=== PATIENT | male | born 1945 | race Caucasian/White ===

== ENCOUNTER → 2016-10-17 | Outpatient (CLI) | payer OTHER ==
[~2016-10-17] VITALS: Ht 167.6 cm; Wt 80.3 kg
[~2016-10-17] MED LIST: ADIPEX-P37.5 M1 PO; ADIPEX-P37.5 MG PO; IBUPROFEN 200200 M1 PO; LISINOPRIL20 MG PO; LYRICA100 MG PO; METFORMIN HCL500 MG PO; MOBIC7.5 MG PO; NORCO 5-325 TA1 EAC1 PO; NORCO 5-325 TA1 EACH PO; TRAMADOL 50 MG50 MG PO
--- NOTE | ~2016-10-17 | HPC ---
[facility] [place] [address] PAIN MANAGEMENT CONSULTATION Name: DEE JOE Room #: REG GERALD Hutchison#: [id number] Admission: 10/17/16 Attend Phys: Dru Gonzalez DO Discharge: Date of : 47 Report #: [id number] THIS REPORT FOR: //name// CC: THERON Gonzalez The patient is a pleasant 71-year-old gentleman being treated for symptomatic lumbar radiculopathy status post decompressive laminectomy, chronic pain syndrome, exogenous obesity requiring complex medication management. I have been providing the patient with a prescription for 37.5 mg of phentermine in the past several months. His weight has continued to come down. BMI has been 29.7 in May down to 29 kilograms per meter squared in July. He continues to lose weight on a steady basis. He is down to 28.6 kilograms per meter squared BMI. He is not having problems with mental acuity changes, daytime somnolence nor constipation. He has taken the phentermine for weight loss along with some hydrocodone for chronic pain, 5/325 up to 4 a day. I had ordered an EKG which was obtained in March when we talked about starting the phentermine, showed normal sinus rhythm. 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 No coiling or stents were deployed. He is not on any blood thinners. [employer] was aware that he was taking phentermine and stated that was acceptable. He returns to the pain clinic today. PHYSICAL EXAMINATION: Shows 71-year-old gentleman, BMI is 28.6 kilograms per meter squared. Blood pressure 136/71, pulse 80, respirations are 14. Alert and oriented to person, place, and time, judged to be a reasonable historian. Subjective pain score is 7 to 8 on a 0-10 visual analog scale. Pain across the low back, bilateral legs. He had fallen on the ice earlier in the month with some exacerbation of some axial back pain, more radicular component of pain at present. Rises from chair easily. Gait is tandem. His pannus is receding somewhat. He does appear a little "bettie." ASSESSMENT: 1. Symptomatic lumbar radiculopathy status post decompressive laminectomy, chronic pain syndrome, exogenous obesity requiring complex medication management. RECOMMENDATIONS: 1. Continue phentermine 37.5, taken the liberty of writing for 2 prescriptions, one for 30 tablets with a second prescription to release in 4 weeks. 2. Renew hydrocodone 5/325, he takes up to 4 a day, taken the liberty of writing for 120 tablets, given the same prescription to release in [address] [address] PAIN MANAGEMENT CONSULTATION Name: DEE JOE Room #: REG CL Foster#: [id number] Admission: 10/17/16 Attend Phys: Dru Gonzalez DO Discharge: Date of : 47 Report #: [id number] ASSESSMENT: 1. Acute exacerbation of lumbar radicular symptoms. Again, status post decompressive laminectomy and fusion at T12 through L2. 2. Modest obesity, currently working on diet restriction with phenteramine. PROCEDURE: Lumbar epidural steroid injection under fluoroscopy. PROCEDURE NOTE: After both written and informed consent to include risk of spinal cord damage, increased pain, weakness and dural puncture, the patient was taken to the fluoroscopy suite, placed in the prone position. After sterile prep and drape, a skin wheal with lidocaine was raised. A 22-gauge epidural Tuohy needle was inserted in the midline at L2-L3 with good loss to resistance. Negative aspiration for cerebrospinal fluid or blood was noted. Then 1 mL of Omnipaque under biplanar fluoroscopy showed good spread within the epidural space. This was followed with 80 mg of triamcinolone plus 1 mL of 1.5% preservative-free Xylocaine, 0.5 mL Xylocaine was then injected to flush the needle; it was removed. The patient was monitored for an appropriate period of time and discharged in good and stable condition. <ELECTRONICALLY SIGNED> By: Dru Gonzalez DO 10/18/16 0904 1617 2316 Dru Gonzalez DO /nt
[2016-10-17 12:30] VITALS: BP 136/71
== END | disposition home or self-care (01) ==
LOC: PAIN 10-10 08:50
DX: M54.16 Radiculopathy, lumbar region (principal); G89.4 Chronic pain syndrome; E66.09 Other obesity due to excess calories; Z68.28 Body mass index [BMI] 28.0-28.9, adult; Z98.890 Other specified postprocedural states

== ENCOUNTER → 2016-12-20 | Outpatient (CLI) | payer OTHER ==
[~2016-12-20] VITALS: Ht 167.6 cm; Wt 80.6 kg
--- NOTE | ~2016-12-20 | HPC ---
[facility] [address] [address] [address] PAIN MANAGEMENT CONSULTATION Name: DEE JOE Room #: REG GERALD Hutchison#: [id number] Admission: 12/20/16 Attend Phys: Dru Gonzalez DO Discharge: Date of : 47 Report #: [id number] THIS REPORT FOR: //name// CC: [facility] physician/PCP Dru Gonzalez The patient is a pleasant 71-year-old gentleman, well known to the pain clinic, typically treated for lumbar radiculopathy, secondary to spinal stenosis, component of morbid obesity, requiring complex medication management. He has been stable on hydrocodone 5/325, fairly low dose one tablet 4 times a day. Periodic epidural injections have continued to afford transient relief. In 2015, he had had an injection in September, February, April, and July. He had one injection this year in September. He notes that the last injection afforded 80% relief for about 1-1/2 months, gradually returned. He has continued on phentermine 37.5 mg, though weight is relatively unchanged. BMI remains 28.7 kilograms per meter squared. He is struggling with activity during the cold weather. He has been diagnosed with increasing PSA numbers. [facility]. He has a bone scan scheduled in the near future. PHYSICAL EXAMINATION: Shows a 71-year-old gentleman, BMI is 28.7 kilograms per meter squared. Blood pressure is little bit elevated at 150/69, pulse of 80, respirations are 16. Alert and oriented to person, place, and time. Judged to be a reasonable historian. Slightly endomorphic build. Rises from the chair using armrest. Diffuse tenderness across the low back, mildly antalgic gait, positive straight leg raise bilaterally. Slight decreased left greater than right hip flexion strength. ASSESSMENT #1: Symptomatic morbid obesity and chronic pain syndrome, requiring complex medication management. RECOMMENDATION: 1. Continue phentermine 37.5 mg once a day. We talked again about dietary restrictions and increased physical activity. 2. Continue hydrocodone 5/325 up to 4 a day as needed for pain. We reviewed the fact that opiate medications are being used to provide analgesia adequate to support activities of daily living, not attempting to achieve a specific pain score on the 0-10 Visual Analog Scale. The current opiate medications are providing sufficient analgesia to allow the patient to participate in activities of daily living. The patient is not exhibiting any aberrant behavior suggestive of drug diversion. The patient is not having any adverse reactions to medications. The patient is not suffering from daytime somnolence or mental acuity changes. The patient is managing opiate-induced constipation with appropriate jrtb-hnw-clkqhju agents and dietary considerations. The patient was counseled on concern for caution with operating a motor vehicle while using opiate medications. [address] [address] PAIN MANAGEMENT CONSULTATION Name: DEE JOE Room #: REG CLI Foster#: [id number] Admission: 12/20/16 Attend Phys: Dru Gonzalez DO Discharge: Date of : 47 Report #: [id number] A physical exam was performed and the patient's functional status was evaluated. All patients with back pain were advised against the bed rest greater than 4 days and were advised to return to normal activities. Pain score assessment was noted and the treatment plan was reviewed with the patient. All current medications, both prescribed and OTC were reviewed and reconciled on the electronic medical record. Tobacco screening was accomplished and smoking cessation was advised when indicated. BMI was noted and diet/exercise modification was recommended for all patients following outside normal parameters. I reviewed with the patient today their responsibilities to safeguard prescription medications, reviewed their responsibility to utilize medications only as prescribed by the physician. They are to seek and receive pain medications only from 1 physician group ( [facility]). They are to use 1 pharmacy and keep the clinic informed if they change pharmacies. Their responsibilities include making followup visits in a timely fashion and to avoid abrupt discontinuation of medication usage. Their responsibilities further include bringing their medications (bottles from the pharmacy with residual pills) to the visit for possible confirmation of pill counts and the patient understands it is their responsibility to submit to random drug screens to ensure both that the medications prescribed are present, and that no other controlled substances are present. All prescriptions provided today were generated electronically. ASSESSMENT #2: Acute exacerbation of lumbar radiculopathy, status post decompressive laminectomy. RECOMMENDATION: Repeat epidural injection under fluoroscopy today at L3-L4. PROCEDURE NOTE: Lumbar epidural injection under fluoroscopy. DESCRIPTION OF PROCEDURE: After both written and informed consent to include risk of spinal cord damage, increased pain, weakness and dural puncture, the patient was taken to the fluoroscopy suite, placed in the prone position. After sterile prep and drape, a skin wheal with lidocaine was raised. A 22-gauge epidural Tuohy needle was inserted in the midline at L3-L4 with good loss to resistance. Negative aspiration for cerebrospinal fluid or blood was noted. Then 1 mL of Omnipaque under biplanar fluoroscopy showed good spread within the epidural space. This was followed with 80 mg of triamcinolone plus 1 mL of 1.5% preservative-free Xylocaine, 0.5 mL Xylocaine was then injected to flush the [facility] [address] [place] [address] PAIN MANAGEMENT CONSULTATION Name: DEE JOE Room #: REG CLEnoc Oconnor.#: [id number] Admission: 12/20/16 Attend Phys: Dru Gonzalez DO Discharge: Date of : 47 Report #: [id number] needle; it was removed. The patient was monitored for an appropriate period of time and discharged in good and stable condition. <ELECTRONICALLY SIGNED> By: Dru Gonzalez DO 12/23/16 1130 1040 1302 Dru Gonzalez DO /nt
[2016-12-20 13:39] VITALS: BP 150/69
== END | disposition home or self-care (01) ==
LOC: PAIN 07:10
DX: M54.16 Radiculopathy, lumbar region (principal); I10 Essential (primary) hypertension; E66.01 Morbid (severe) obesity due to excess calories; Z68.28 Body mass index [BMI] 28.0-28.9, adult

== ENCOUNTER → 2017-03-20 | Outpatient (CLI) | payer OTHER ==
[~2017-03-20] VITALS: Ht 167.6 cm; Wt 78.3 kg
--- NOTE | ~2017-03-20 | HPC ---
[facility] [address] [place] [address] PAIN MANAGEMENT CONSULTATION Name: DEE JOE Room #: REG GERALD Hutchison#: [id number] Admission: 03/20/17 Attend Phys: Dru Gonzalez DO Discharge: Date of : 47 Report #: [id number] THIS REPORT FOR: //name// CC: [place] physician/PCP Dru Gonzalez DATE OF SERVICE: 03/20/2017 The patient is a very pleasant 71-year-old gentleman being treated for lumbar radiculopathy status post decompressive laminectomy, exogenous obesity, being managed with phentermine and complex medication management for chronic axial back pain, stable with hydrocodone 5/325 up to 4 a day. Returns to pain clinic today. He has continued to lose weight. He BMI of 27.9 kilograms per meter squared. He has been diagnosed with prostate cancer in July. He has been trying to get surgery ultimately since he has had multiple abdominal surgeries. Surgeons were afraid of abdominal surgeries with his adhesions. They elected to treat his cancer with radiation therapy. He has had radium implants and he is going to start 3 weeks of external beam radiation. Notes ongoing radicular pain is problematic. Last epidural injection gave him 90% relief for about 4-6 weeks. Pain is gradually beginning to recur. PHYSICAL EXAMINATION: Shows a pleasant 71-year-old gentleman. Again, BMI is 27.9 kilograms per meter squared. Vital signs stable as noted in the EMR. Rises from chair using armrest. Diffuse tenderness across the low back. Pain radiating to the anterior thighs compatible with L2 radicular pain pattern. He has a lumbar fusion T11 through L1. ASSESSMENT #1: Exogenous obesity, chronic pain syndrome requiring complex medication management, stable on baseline medications. RECOMMENDATIONS: 1. Continue phentermine 37.5 daily. Continue weight loss, dietary discretion and activity. 2. Continue hydrocodone 5/325 as needed for breakthrough pain up to 4 tablets a day, taken the liberty of writing for 3 months of current medications. ASSESSMENT #2: Acute exacerbation of lumbar radiculopathy status post fusion. RECOMMENDATION: Epidural injection under fluoroscopy today. PROCEDURE: Lumbar epidural injection under fluoroscopy. PROCEDURE NOTE: After both written and informed consent to include risk of [address] [address] [facility]IN MANAGEMENT [facility] Room #: REG GERALD Hutchison#: [id number] Admission: 03/20/17 Attend Phys: Dru Gonzalez DO Discharge: Date of : 47 Report #: [id number] spinal cord damage, increased pain, weakness and dural puncture, the patient was taken to the fluoroscopy suite, placed in the prone position. After sterile prep and drape, a skin wheal with lidocaine was raised. A 22-gauge epidural Tuohy needle was inserted in the midline at L2-L3 with good loss to resistance. Negative aspiration for cerebrospinal fluid or blood was noted. Then 1 mL of Omnipaque under biplanar fluoroscopy showed good spread within the epidural space. This was followed with 80 mg of triamcinolone plus 1 mL of 1.5% preservative-free Xylocaine, 0.5 mL Xylocaine was then injected to flush the needle; it was removed. The patient was monitored for an appropriate period of time and discharged in good and stable condition. By: [id number] Dru Gonzalez DO /nt
[2017-03-20 13:39] VITALS: BP 112/69
== END | disposition home or self-care (01) ==
LOC: PAIN 06:47
DX: M54.16 Radiculopathy, lumbar region (principal); E66.09 Other obesity due to excess calories; Z68.27 Body mass index [BMI] 27.0-27.9, adult; G89.4 Chronic pain syndrome

== ENCOUNTER → 2017-06-19 | Outpatient (CLI) | payer OTHER ==
[~2017-06-19] VITALS: Ht 167.6 cm; Wt 75.6 kg
--- NOTE | ~2017-06-19 | HPC ---
[facility] [address] [address] PAIN MANAGEMENT CONSULTATION Name: DEE JOE Room #: REG GERALD Hutchison#: [id number] Admission: 06/19/17 Attend Phys: Dru Gonzalez DO Discharge: Date of : 47 Report #: [id number] THIS REPORT FOR: //name// CC: [facility] physician/PCP Dru Gonzalez The patient is a 71-year-old gentleman, well known to the pain clinic, being treated for symptomatic lumbar radiculopathy, status post decompressive laminectomy, axial back pain, high-risk complex medication management and exogenous obesity. The patient has been using phentermine for some time. He has continued to drop weight, his BMI is down from 27.9 kg to 26.9 kg/m2. Returns to pain clinic today. He has finished radiation therapy for prostate cancer (last ____ radiation treatment was on 06/16/2017). He does complain of some dysuria and painful bowel movements after the radiation therapy, but was told by radiation oncologist that this will resolve in time. He notes 70% relief following his last epidural injection for 8-10 weeks. Notes pain has recurred, it is an 8-9 on a VAS. He continues low-dose hydrocodone 5/325 up to 4 a day for pain. PHYSICAL EXAMINATION: Otherwise unchanged. Again, BMI is down to 1 kg/m2 from 27.9 to 26.9. Vital signs stable on the EMR. Rises from chair using armrest. Diffuse tenderness across the low back. Lumbar flexion is limited. Positive straight leg raise bilaterally. ASSESSMENT: Anxiety, obesity and chronic pain syndrome requiring high-risk complex medication management, component of axial back pain. RECOMMENDATIONS: 1. Renew hydrocodone 5/325 up to 4 a day. I have taken the liberty of writing for 3 months of current medication. 2. Exogenous obesity, currently doing well with phentermine 37.5 mg a day. I have taken the liberty of renewing that prescription as well. We will continue with increased activity and dietary discretion. 3. Lumbar radiculopathy, status post decompressive laminectomy. Recommendation of epidural injection under fluoroscopy today. PROCEDURE: Lumbar epidural steroid injection. PROCEDURE NOTE: After both written and informed consent to include risk of spinal cord damage, increased pain, weakness and dural puncture, the patient was taken to the fluoroscopy suite, placed in the prone position. After sterile prep and drape, a skin wheal with lidocaine was raised. A 22-gauge epidural Tuohy needle was inserted in the midline at the level of L3-L4 with good loss to resistance. Negative aspiration for cerebrospinal fluid or blood was noted. [address] [address] PAIN MANAGEMENT CONSULTATION Name: CATYZebDEE Room #: REG CLEnoc Hutchison#: [id number] Admission: 06/19/17 Attend Phys: Dru Gonzalez DO Discharge: Date of : 47 Report #: [id number] Then 1 mL of Omnipaque under biplanar fluoroscopy showed good spread within the epidural space. This was followed with 80 mg of triamcinolone plus 1 mL of 1.5% preservative-free Xylocaine, 0.5 mL Xylocaine was then injected to flush the needle; it was removed. The patient was monitored for an appropriate period of time and discharged in good and stable condition. By: [id number] Dru Gonzalez DO /nt
[2017-06-19 12:34] VITALS: BP 129/61
== END | disposition home or self-care (01) ==
LOC: PAIN 07:07
DX: M54.16 Radiculopathy, lumbar region (principal); G89.4 Chronic pain syndrome; F41.8 Other specified anxiety disorders; E66.09 Other obesity due to excess calories; Z68.27 Body mass index [BMI] 27.0-27.9, adult; Z98.890 Other specified postprocedural states; Z79.891 Long term (current) use of opiate analgesic; Z79.899 Other long term (current) drug therapy

== ENCOUNTER → 2017-09-19 | Outpatient (CLI) | payer OTHER ==
[~2017-09-19] VITALS: Ht 167.6 cm; Wt 75.3 kg
[~2017-09-19] MED LIST changes: +CELEXA10 MG PO; +HYDROCODON-ACE1 EA12 PO; +NORCO 7.5-3251 EACH PO
--- NOTE | ~2017-09-19 | HPC ---
[facility] [address] [place] [address] PAIN MANAGEMENT CONSULTATION Name: DEE JOE Room #: REG CLEnoc Hutchison#: [id number] Admission: 09/19/17 Attend Phys: Dru Gonzalez DO Discharge: Date of : 47 Report #: [id number] THIS REPORT FOR: //name// CC: [place] physician/PCP Dru Gonzalez PAIN CLINIC NOTE SUBJECTIVE: The patient is a 72-year-old gentleman, long treated for symptomatic lumbar radiculopathy status post decompressive laminectomy. The patient had I believe acute traumatic compression fracture now with fusion T11-L1. He has been treated for symptomatic lumbar radiculopathy below the fusion with ongoing axial back pain. He has been stable on high risk complex medication management including hydrocodone 5/325 four a day alternating with tramadol 50 mg 4 times a day. With some exogenous obesity and an endomorphic build, I had assisted his dietary management with phentermine extended release 37.5 mg over the last few months. We have done midline epidural injection at L3-L4 with ongoing improvement of radicular symptoms. The patient returns to pain clinic today. Weight is somewhat plateaued, BMI is 26.8 kilograms per meter squared. We had a prolonged visit today from 7182-7261 hours. Greater than 50% of the 30-minute visit was spent reviewing the health issues and concerns. I had obtained a buccal swab at last visit, 06/19/2017. It was positive for tramadol and phentermine, but negative for hydrocodone. When I confronted the patient about this, he stated that he had been taking his hydrocodone a little more aggressively. He states he is having increasing pain in the right low back radiating to the hip. He states his legs are weak and describes neurogenic claudication. Notes pain in the low back exacerbated with rotation primarily to the right. PHYSICAL EXAMINATION: Today, shows 72-year-old gentleman as noted, BMI is 26.8 kilograms per meter squared. Vital signs are stable as noted in the EMR. Alert and oriented to person, place and time, judged to be a reasonable historian. He does use tobacco products (chew). I did caution the patient about nicotine use and axial back pain. He rises from the chair using armrests, again endomorphic build. Diffuse tenderness across the right low back pain exacerbated with rotating to the right, appears to be perhaps some facet mediated pain. Pain radiates into the low back. SI mediated pain is fairly nominal at this time. Lower extremity strength is modestly diminished on the right. Straight leg raise negative at this time. Again, he does describe neurogenic claudication. We reviewed the fact that opiate medications are being used to provide analgesia [address] [address] PAIN MANAGEMENT CONSULTATION Name: CATYZebDEE Room #: REG GERALD Hutchison#: [id number] Admission: 09/19/17 Attend Phys: Dru Gonzalez DO Discharge: Date of : 47 Report #: [id number] adequate to support activities of daily living, not attempting to achieve a specific pain score on the 0-10 Visual Analog Scale. The current opiate medications are providing sufficient analgesia to allow the patient to participate in activities of daily living. The patient is not exhibiting any aberrant behavior suggestive of drug diversion. The patient is not having any adverse reactions to medications. The patient is not suffering from daytime somnolence or mental acuity changes. The patient is managing opiate-induced constipation with appropriate jkhn-cbw-nkluqax agents and dietary considerations. The patient was counseled on concern for caution with operating a motor vehicle while using opiate medications. A physical exam was performed and the patient's functional status was evaluated. All patients with back pain were advised against the bed rest greater than 4 days and were advised to return to normal activities. Pain score assessment was noted and the treatment plan was reviewed with the patient. All current medications, both prescribed and OTC were reviewed and reconciled on the electronic medical record. Tobacco screening was accomplished and smoking cessation was advised when indicated. BMI was noted and diet/exercise modification was recommended for all patients following outside normal parameters. I reviewed with the patient today their responsibilities to safeguard prescription medications, reviewed their responsibility to utilize medications only as prescribed by the physician. They are to seek and receive pain medications only from 1 physician group ( [facility]). They are to use 1 pharmacy and keep the clinic informed if they change pharmacies. Their responsibilities include making followup visits in a timely fashion and to avoid abrupt discontinuation of medication usage. Their responsibilities further include bringing their medications (bottles from the pharmacy with residual pills) to the visit for possible confirmation of pill counts and the patient understands it is their responsibility to submit to random drug screens to ensure both that the medications prescribed are present, and that no other controlled substances are present. All prescriptions provided today were generated electronically. ASSESSMENT: 1. Symptomatic lumbar radiculopathy, status post compression fracture with fusion T11-L1 with a component of axial back pain and lumbar spondylosis (right mid lumbar). 2. Exogenous obesity. Weight loss has plateaued. 3. Nicotine use via tobacco "chew." RECOMMENDATIONS: 1. Discontinue hydrocodone 5/325 and tramadol. We will increase hydrocodone 7.5/325 max 4 a day. The patient cautioned about increasing somnolence and constipation with a 50% decrease in his overall opiate load. Follow up in 4 weeks to evaluate efficacy. 2. We will order an MRI of the lumbar spine with increasing pain and changing [facility] [address] [place] [address] PAIN MANAGEMENT CONSULTATION Name: DEE JOE Room #: REG CLI MMalgorzata.#: [id number] Admission: 09/19/17 Attend Phys: Dru Gonzalez DO Discharge: Date of : 47 Report #: [id number] symptoms in the right low back beneath the fusion. I am afraid he may be getting an exacerbation of facet degeneration here. We will postpone interventional therapy today, the patient was requesting epidural injection for ongoing neurogenic claudication symptoms. We may repeat epidural injection versus fluoroscopic-guided facet joint injection at next visit. We will follow up in 4 weeks to evaluate efficacy of medication change and to evaluate MRI. The patient is discharged in good and stable condition after a 30-minute visit. <ELECTRONICALLY SIGNED> By: Dru Gonzalez DO 10/02/17 0913 1621 0348 Dru Gonzalez DO /nt
[2017-09-19 13:05] VITALS: BP 141/72
== END ==
LOC: PAIN 07:47
DX: M54.16 Radiculopathy, lumbar region (principal); M54.89 Other dorsalgia; E66.09 Other obesity due to excess calories; F17.228 Nicotine dependence, chewing tobacco, with other nicotine-induced disorders; Z98.890 Other specified postprocedural states

== ENCOUNTER → 2017-10-24 | Outpatient (CLI) | payer OTHER ==
[~2017-10-24] VITALS: Ht 167.6 cm; Wt 73.9 kg
--- NOTE | ~2017-10-24 | HPC ---
[facility] [address] [address] PAIN MANAGEMENT CONSULTATION Name: DEE JOE Room #: REG CLEnoc Hutchison#: [id number] Admission: 10/24/17 Attend Phys: Dru Gonzalez DO Discharge: Date of : 47 Report #: [id number] THIS REPORT FOR: //name// CC: [place] physician/PCP Dru Gonzalez PAIN CLINIC NOTE The patient is a 72-year-old gentleman, last seen in the pain clinic on 09/19/2017, being treated for lumbar radiculopathy status post decompressive laminectomy, fusion T11 to L1, status post T12 traumatic compression fracture. Ongoing radicular symptoms, axial back pain, component of morbid obesity requiring high risk complex medication management. We have been trying to get an MRI of the lumbar spine. The patient describes neurogenic claudication, has had transient relief with epidural injections. Last diagnostic study somewhat dated from January 2014, now approaching 4 years old. Concern the patient may have treatable pathology in the lumbar spine. We have been having a difficult time getting the MRI authorized. The patient's prior injury was work related and he is dealing with workmen's compensation. His health care attorney at the [employer] has been working to try and get this MRI expedited. The patient returns to the pain clinic today, does note ongoing pain that he rates a "12" on a 0-10 VAS. Again, pain is low back, right hip and right leg. He has subjective weakness, ongoing pain exacerbated with standing, walking or lifting. PHYSICAL EXAMINATION: GENERAL: Shows a 72-year-old gentleman, BMI is 26.3 kilograms per meter squared. VITAL SIGNS: Stable. MUSCULOSKELETAL: Rises from chair using armrests, antalgic gait. Objective diminished right hip flexion, lower extremity extension and dorsiflexion, plantarflexion strength. Positive straight leg raise on the right. Diffuse tenderness across the low back. No discrete trigger points noted. We reviewed the fact that opiate medications are being used to provide analgesia adequate to support activities of daily living, not attempting to achieve a specific pain score on the 0-10 Visual Analog Scale. The current opiate medications are providing sufficient analgesia to allow the patient to participate in activities of daily living. The patient is not exhibiting any aberrant behavior suggestive of drug diversion. The patient is not having any adverse reactions to medications. The patient is not suffering from daytime somnolence or mental acuity changes. The patient is managing opiate-induced constipation with appropriate dfqb-vqd-lfrisbi agents and dietary considerations. The patient was counseled on concern for caution with operating [address] [address] PAIN MANAGEMENT CONSULTATION Name: DEE JOE Room #: REG CLEnoc Hutchison#: [id number] Admission: 10/24/17 Attend Phys: Dru Gonzalez DO Discharge: Date of : 47 Report #: [id number] a motor vehicle while using opiate medications. A physical exam was performed and the patient's functional status was evaluated. All patients with back pain were advised against the bed rest greater than 4 days and were advised to return to normal activities. Pain score assessment was noted and the treatment plan was reviewed with the patient. All current medications, both prescribed and OTC were reviewed and reconciled on the electronic medical record. Tobacco screening was accomplished and smoking cessation was advised when indicated. BMI was noted and diet/exercise modification was recommended for all patients following outside normal parameters. I reviewed with the patient today their responsibilities to safeguard prescription medications, reviewed their responsibility to utilize medications only as prescribed by the physician. They are to seek and receive pain medications only from 1 physician group ( [facility]). They are to use 1 pharmacy and keep the clinic informed if they change pharmacies. Their responsibilities include making followup visits in a timely fashion and to avoid abrupt discontinuation of medication usage. Their responsibilities further include bringing their medications (bottles from the pharmacy with residual pills) to the visit for possible confirmation of pill counts and the patient understands it is their responsibility to submit to random drug screens to ensure both that the medications prescribed are present, and that no other controlled substances are present. All prescriptions provided today were generated electronically. ASSESSMENT: Symptomatic lumbar radiculopathy status post prior fusion T11 to L1 secondary to T12 compression fracture, requiring high risk complex medication management. Comorbidity includes exogenous obesity, which we have been treating with phentermine dietary discretion. The patient continues to chew tobacco, was counseled regarding same. Continue hydrocodone 7.5/325 up to 4 a day. RECOMMENDATIONS: MRI of lumbar spine, again this is "in the works." We will plan on moving forward with epidural injection under fluoroscopy at next visit, we will correlate symptoms with MRI, which should be obtained shortly. Today, I have elected to renew current medication including hydrocodone 7.5/325 up to 4 a day, taken the liberty of writing for 3 months of current medication phentermine 37.5 mg 1 a day. Discharged in good and stable condition. Plan on seeing after MRI. <ELECTRONICALLY SIGNED> By: Dru Gonzalez DO 10/27/17 1026 [id number] 2203 Dru Gonzalez DO /nt
[2017-10-24 13:00] VITALS: BP 126/75
== END ==
LOC: PAIN 10-17 07:56
DX: M54.16 Radiculopathy, lumbar region (principal); M54.9 Dorsalgia, unspecified; E66.09 Other obesity due to excess calories; F17.228 Nicotine dependence, chewing tobacco, with other nicotine-induced disorders; Z98.890 Other specified postprocedural states; Z87.81 Personal history of (healed) traumatic fracture; Z79.899 Other long term (current) drug therapy

== ENCOUNTER → 2017-12-05 | Outpatient (CLI) | payer OTHER ==
[~2017-12-05] VITALS: Ht 167.6 cm; Wt 74.7 kg
--- NOTE | ~2017-12-05 | HPC ---
[facility] [place] [place] [address] PAIN MANAGEMENT CONSULTATION Name: DEE JOE Room #: REG BEEEnoc Oconnor.#: [id number] Admission: 12/05/17 Attend Phys: Dru Gonzalez DO Discharge: Date of : 47 Report #: [id number] THIS REPORT FOR: //name// CC: [place] physician/PCP Dru Gonzalez DATE OF SERVICE: 12/05/2017 The patient is a pleasant 72-year-old gentleman. He has been seen for symptomatic lumbar radiculopathy, status post fusion for T12 compression fracture, fusion is T11 through L1. He was having ongoing pain and I had ordered MRI of the lumbar spine. This ultimately was obtained today. I personally reviewed the images. Does show the aforementioned T11-L1 fusion. There is some generalized spondylosis and facet arthropathy at multiple levels. There is a Schmrol nodule at L3. On my view, there is a moderate right greater than left neural foraminal narrowing at L1-L2. Ligamentous thickening and facet changes at L2-L3. Hypertrophic facet changes at L3-L4. The patient is noting some increasing pain in the right low back at the inferior aspect of the fusion. I suspect there is a component of some lumbar spondylosis here. His primary pain, however, is ongoing lumbar radicular pain. ASSESSMENT: Symptomatic lumbar radiculopathy, status post prior fusion T12-L1, neural foraminal narrowing below this, L1-L2 and L2-L3. RECOMMENDATIONS: Renew tramadol 50 mg up to 4 times a day, hydrocodone 7.5/325 up to 4 a day. I have taken the liberty of writing for 3 months of current medication. We reviewed the fact that opiate medications are being used to provide analgesia adequate to support activities of daily living, not attempting to achieve a specific pain score on the 0-10 Visual Analog Scale. The current opiate medications are providing sufficient analgesia to allow the patient to participate in activities of daily living. The patient is not exhibiting any aberrant behavior suggestive of drug diversion. The patient is not having any adverse reactions to medications. The patient is not suffering from daytime somnolence or mental acuity changes. The patient is managing opiate-induced constipation with appropriate xdzn-zwk-nseqzen agents and dietary considerations. The patient was counseled on concern for caution with operating a motor vehicle while using opiate medications. A physical exam was performed and the patient's functional status was evaluated. All patients with back pain were advised against the bed rest greater than 4 days and were advised to return to normal activities. Pain score assessment was noted and the treatment plan was reviewed with the patient. All current medications, both prescribed and OTC were reviewed and reconciled on the electronic medical record. Tobacco screening was accomplished and smoking [address] [address] PAIN MANAGEMENT CONSULTATION Name: DEE JOE Room #: REG CLI Foster#: [id number] Admission: 12/05/17 Attend Phys: Dru Gonzalez DO Discharge: Date of : 47 Report #: [id number] cessation was advised when indicated. BMI was noted and diet/exercise modification was recommended for all patients following outside normal parameters. I reviewed with the patient today their responsibilities to safeguard prescription medications, reviewed their responsibility to utilize medications only as prescribed by the physician. They are to seek and receive pain medications only from 1 physician group ( [facility]). They are to use 1 pharmacy and keep the clinic informed if they change pharmacies. Their responsibilities include making followup visits in a timely fashion and to avoid abrupt discontinuation of medication usage. Their responsibilities further include bringing their medications (bottles from the pharmacy with residual pills) to the visit for possible confirmation of pill counts and the patient understands it is their responsibility to submit to random drug screens to ensure both that the medications prescribed are present, and that no other controlled substances are present. All prescriptions provided today were generated electronically. ASSESSMENT: Symptomatic lumbar radiculopathy with ongoing radicular pain. RECOMMENDATION: Lumbar epidural injection under fluoroscopy. PROCEDURE NOTE: After both written and informed consent to include risk of spinal cord damage, increased pain, weakness and dural puncture, the patient was taken to the fluoroscopy suite, placed in the prone position. After sterile prep and drape, a skin wheal with lidocaine was raised. A 22-gauge epidural Tuohy needle was inserted in the midline at L2-L3 with good loss to resistance. Negative aspiration for cerebrospinal fluid or blood was noted. Then 1 mL of Omnipaque under biplanar fluoroscopy showed good spread within the epidural space. This was followed with 80 mg of triamcinolone plus 1 mL of 1.5% preservative-free Xylocaine, 0.5 mL Xylocaine was then injected to flush the needle; it was removed. The patient was monitored for an appropriate period of time and discharged in good and stable condition. <ELECTRONICALLY SIGNED> By: Dru Gonzalez DO 12/11/17 0938 [id number] 2228 Dru Gonzalez DO /nt
[2017-12-05 12:35] VITALS: BP 138/67
== END | disposition home or self-care (01) ==
LOC: PAIN 07:08
DX: M47.26 Other spondylosis with radiculopathy, lumbar region (principal); M48.061 Spinal stenosis, lumbar region without neurogenic claudication

== ENCOUNTER → 2018-01-23 | Outpatient (CLI) | payer OTHER ==
[~2018-01-23] VITALS: Ht 167.6 cm; Wt 71.7 kg
--- NOTE | ~2018-01-23 | HPC ---
[facility] [place] [address] PAIN MANAGEMENT CONSULTATION Name: DEE JOE Room #: REG CLEnoc Hutchison#: [id number] Admission: 01/23/18 Attend Phys: Dru Gonzalez DO Discharge: Date of : 47 Report #: [id number] THIS REPORT FOR: //name// CC: [place] physician/PCP Dru Gonzalez DATE OF SERVICE: 01/23/2018 HISTORY OF PRESENT ILLNESS: The patient is a very pleasant 72-year-old gentleman, long known to the pain clinic, treated for lumbar radiculopathy, status post fusion T11 through L1, status post T12 traumatic compression fracture, lumbar radiculopathy, exogenous obesity, lumbar spondylosis, requiring complex medication management. Last seen in the pain clinic on 12/05/2017. We did an epidural injection at that time with incremental improvement in baseline pain. Continued hydrocodone 7.5/325 one tablet up to 4 times a day, phentermine 37.5 daily for weight reduction. Returns to the pain clinic today, has been authorized for repeat injection. Notes pain is in the right low back. May have a component of facet mediated pain below the fusion at L1-L2 and L2-L3. Does however, also have a component of lumbar radiculopathy. We reviewed the fact that opiate medications are being used to provide analgesia adequate to support activities of daily living, not attempting to achieve a specific pain score on the 0-10 Visual Analog Scale. The current opiate medications are providing sufficient analgesia to allow the patient to participate in activities of daily living. The patient is not exhibiting any aberrant behavior suggestive of drug diversion. The patient is not having any adverse reactions to medications. The patient is not suffering from daytime somnolence or mental acuity changes. The patient is managing opiate-induced constipation with appropriate jmxr-yhb-jwmeews agents and dietary considerations. The patient was counseled on concern for caution with operating a motor vehicle while using opiate medications. A physical exam was performed and the patient's functional status was evaluated. All patients with back pain were advised against the bed rest greater than 4 days and were advised to return to normal activities. Pain score assessment was noted and the treatment plan was reviewed with the patient. All current medications, both prescribed and OTC were reviewed and reconciled on the electronic medical record. Tobacco screening was accomplished and smoking cessation was advised when indicated. BMI was noted and diet/exercise modification was recommended for all patients following outside normal parameters. I reviewed with the patient today their responsibilities to safeguard prescription medications, reviewed their responsibility to utilize medications [address] [address] PAIN MANAGEMENT CONSULTATION Name: DEE JOE Room #: REG CL Foster#: [id number] Admission: 01/23/18 Attend Phys: Dru Gonzalez DO Discharge: Date of : 47 Report #: [id number] only as prescribed by the physician. They are to seek and receive pain medications only from 1 physician group ( [facility]). They are to use 1 pharmacy and keep the clinic informed if they change pharmacies. Their responsibilities include making followup visits in a timely fashion and to avoid abrupt discontinuation of medication usage. Their responsibilities further include bringing their medications (bottles from the pharmacy with residual pills) to the visit for possible confirmation of pill counts and the patient understands it is their responsibility to submit to random drug screens to ensure both that the medications prescribed are present, and that no other controlled substances are present. All prescriptions provided today were generated electronically. Rates his subjective pain score 8 on a VAS. He has not fallen since our last consultation. BMI is continuing to decrease; he had been 26.6 kilograms per meter squared at last visit, he is now down to 25.5 kilograms per meter squared. Phentermine is helping control his diet. Rises from chair using armrest. Gait is generally tandem. Diffuse tenderness across the low back. Slight decreased right hip flexion strength. ASSESSMENT: Axial back pain, lumbar radiculopathy, exogenous obesity, requiring complex medication management. RECOMMENDATIONS: Renew phentermine 37.5 mg 1 a day. Renew hydrocodone 7.5/325 up to 4 tablets a day, taken the liberty of writing for 120 tablets with a second prescription to be released in 2 months for another 120 tablets. This will typically last him 3-4 months. I did provide 3 months of phentermine and tramadol t.i.d. 50 mg 90 tablets with 2 refills. PROCEDURE: Lumbar epidural injection under fluoroscopy. PROCEDURE NOTE: After both written and informed consent to include risk of spinal cord damage, increased pain, weakness and dural puncture, the patient was taken to the fluoroscopy suite, placed in the prone position. After sterile prep and drape, a skin wheal with lidocaine was raised. A 22-gauge epidural Tuohy needle was inserted in the midline at L2-L3 with good loss to resistance. Negative aspiration for cerebrospinal fluid or blood was noted. Then 1 mL of Omnipaque under biplanar fluoroscopy showed good spread within the epidural space. This was followed with 80 mg of triamcinolone plus 1 mL of 1.5% preservative-free Xylocaine, 0.5 mL Xylocaine was then injected to flush the needle; it was removed. The patient was monitored for an appropriate period of time and discharged in good and stable condition. <ELECTRONICALLY SIGNED> By: Dru Gonzalez DO 01/26/18 [id number] 0147 Dru Gonzalez DO /nt
[2018-01-23 12:59] VITALS: BP 134/75
== END | disposition home or self-care (01) ==
LOC: PAIN 07:00
DX: M54.16 Radiculopathy, lumbar region (principal); G89.29 Other chronic pain; E66.09 Other obesity due to excess calories; Z68.25 Body mass index [BMI] 25.0-25.9, adult; Z79.891 Long term (current) use of opiate analgesic; Z79.899 Other long term (current) drug therapy; Z98.890 Other specified postprocedural states

== ENCOUNTER → 2018-04-03 | Outpatient (CLI) | payer OTHER ==
[~2018-04-03] VITALS: Ht 167.6 cm; Wt 71.4 kg
--- NOTE | ~2018-04-03 | HPC ---
[facility] [place] [address] [address] [place] [address] PAIN MANAGEMENT CONSULTATION Name: DEE JOE Room #: REG GERALD Foster#: [id number] Admission: 04/03/18 Attend Phys: Dru Gonzalez DO Discharge: Date of : 47 Report #: [id number] THIS REPORT FOR: //name// CC: [place] physician/PCP Dru Gonzalez DATE OF SERVICE: 04/03/2018 The patient is a 72-year-old gentleman long treated for chronic axial back pain, lumbar radiculopathy, status post industrial injury with traumatic T12 fracture, status post T11 through L1 fusion, component of lumbar spondylosis, exogenous obesity requiring complex medication management. He has been stable on hydrocodone 7.5/325 up to 4 a day. Phentermine 37.5 mg daily has been for weight reduction. At last visit, he was 158 pounds. He is down ever so slightly 157.4 pounds today. He takes tramadol for breakthrough pain. He uses this a little more frequently than the hydrocodone, he uses hydrocodone only for more significant pain. We did review dietary restrictions and increased caloric consumption (exercise). He notes prior injection on 01/23/2018 afforded 80% relief for 6-8 weeks, pain has gradually begun to recur. Primary pain is in the low back, right hip, thigh and leg. Pain is exacerbated with standing or walking greater than 15-20 minutes. PHYSICAL EXAMINATION: Shows pleasant 72-year-old gentleman, BMI is 25.4 kilograms per meter squared. Blood pressure is 134/61, pulse 82, respirations 20. Rises from chair using armrests, has an antalgic gait, diffuse tenderness across the low back. Right hip flexion strength is diminished compared to the left, slight decreased right dorsiflexion strength as well. Moderately endomorphic build. We reviewed the fact that opiate medications are being used to provide analgesia adequate to support activities of daily living, not attempting to achieve a specific pain score on the 0-10 Visual Analog Scale. The current opiate medications are providing sufficient analgesia to allow the patient to participate in activities of daily living. The patient is not exhibiting any aberrant behavior suggestive of drug diversion. The patient is not having any adverse reactions to medications. The patient is not suffering from daytime somnolence or mental acuity changes. The patient is managing opiate-induced constipation with appropriate xunp-xae-lppxdah agents and dietary considerations. The patient was counseled on concern for caution with operating a motor vehicle while using opiate medications. A physical exam was performed and the patient's functional status was evaluated. All patients with back pain were advised against the bed rest greater than [address] [place] [address] PAIN MANAGEMENT CONSULTATION Name: DEE JOE Room #: REG CLI Foster#: [id number] Admission: 04/03/18 Attend Phys: Dru Gonzalez DO Discharge: Date of : 47 Report #: [id number] days and were advised to return to normal activities. Pain score assessment was noted and the treatment plan was reviewed with the patient. All current medications, both prescribed and OTC were reviewed and reconciled on the electronic medical record. Tobacco screening was accomplished and smoking cessation was advised when indicated. BMI was noted and diet/exercise modification was recommended for all patients following outside normal parameters. I reviewed with the patient today their responsibilities to safeguard prescription medications, reviewed their responsibility to utilize medications only as prescribed by the physician. They are to seek and receive pain medications only from 1 physician group ( [facility]). They are to use 1 pharmacy and keep the clinic informed if they change pharmacies. Their responsibilities include making followup visits in a timely fashion and to avoid abrupt discontinuation of medication usage. Their responsibilities further include bringing their medications (bottles from the pharmacy with residual pills) to the visit for possible confirmation of pill counts and the patient understands it is their responsibility to submit to random drug screens to ensure both that the medications prescribed are present, and that no other controlled substances are present. All prescriptions provided today were generated electronically. ASSESSMENT: 1. Symptomatic lumbar radiculopathy status post decompressive laminectomy, chronic axial back pain requiring complex medication management. Comorbidity includes exogenous obesity. 2. Acute exacerbation of lumbar radiculopathy with right L2 radicular pain pattern. RECOMMENDATIONS: 1. Discussed nicotine habituation with the patient, he continues to chew tobacco. We discussed the correlation of tobacco use and axial back pain. 2. Continue hydrocodone 7.5/325, limit 120 tablets typically for 2 months, tramadol 50 mg 100 tablets with 2 refills, can take this tablet 3-4 times a day as needed for pain. Continue phentermine 37.5 mg 1 a day as long as weight continues to reduce. 3. Lumbar epidural injection under fluoroscopy. PROCEDURE: Midline epidural injection under fluoroscopy. PROCEDURE NOTE: After both written and informed consent to include risk of spinal cord damage, increased pain, weakness and dural puncture, the patient was taken to the fluoroscopy suite, placed in the prone position. After sterile prep and drape, a skin wheal with lidocaine was raised. A 22-gauge epidural Tuohy needle was inserted in the midline at L2-L3 with good loss to resistance. Negative aspiration for cerebrospinal fluid or blood was noted. Then 1 mL of [facility] [address] [place] [address] PAIN MANAGEMENT CONSULTATION Name: DEE JOE Room #: REG [facility]#: [id number] Admission: 04/03/18 Attend Phys: Dru Gonzalez DO Discharge: Date of : 47 Report #: [id number] Omnipaque under biplanar fluoroscopy showed good spread within the epidural space. This was followed with 60 mg of triamcinolone plus 1 mL of 1.5% preservative-free Xylocaine, 0.5 mL Xylocaine was then injected to flush the needle; it was removed. The patient was monitored for an appropriate period of time and discharged in good and stable condition. <ELECTRONICALLY SIGNED> By: Dru Gonzalez DO 04/06/18 0659 1450 2059 Dru Gonzalez DO /nt
[2018-04-03 13:28] VITALS: BP 134/61
== END | disposition home or self-care (01) ==
LOC: PAIN 07:00
DX: M54.16 Radiculopathy, lumbar region (principal); M54.5 Low back pain; G89.29 Other chronic pain; E66.09 Other obesity due to excess calories; Z79.891 Long term (current) use of opiate analgesic; Z98.890 Other specified postprocedural states; Z68.25 Body mass index [BMI] 25.0-25.9, adult; Z79.899 Other long term (current) drug therapy

== ENCOUNTER → 2018-08-11 | Outpatient (CLI) | payer OTHER ==
[~2018-08-11] VITALS: Ht 165.1 cm; Wt 73.8 kg
[~2018-08-11] MED LIST changes: +DICLO GEL1 EACH TRANSDERM; +HYDROCODONE-AP1 EA11 PO
--- NOTE | ~2018-08-11 | HPC ---
[facility] [place] [address] PAIN MANAGEMENT CONSULTATION Name: DEE JOE Room #: REG CLEnoc M.Favian.#: [id number] Admission: 08/11/18 Attend Phys: Yovani Gonzalez DO Discharge: Date of : 49 Report #: [id number] THIS REPORT FOR: //name// CC: Dr. Bertrand CASIANO physician/PCP Yovani Gonzalez DATE OF SERVICE: 08/11/2018 CHIEF COMPLAINT: Low back pain status post industrial injury with traumatic T12 compression fracture requiring stabilization. HISTORY OF PRESENT ILLNESS: As you know, the patient is a 72-year-old male who is followed by my partner, Dr. Dru Gonzalez, for pain involving low back and bilateral lower extremities. He returns today in followup visit requesting to undergo epidural injection under fluoroscopic guidance. While he is here, he has requested refill of his typical pain medications. The patient was referred initially to our clinic for interventional treatments. He has undergone these treatments, but continues to return for medication management and periodic epidural injections. He returns today stating a pain of a level of 9/10. He denies new injury or new trauma or any changes in medical history since our last visit. ALLERGIES: No known drug allergies. CURRENT MEDICATIONS: Tramadol, phentermine, hydrocodone, escitalopram, ibuprofen, lisinopril, metformin. SOCIAL HISTORY: The patient denies tobacco, alcohol, IV or illicit drug use. He is unaccompanied today. IMAGING: No new imaging available. PQRS: The patient has osteoarthritic changes of the low back, bilateral hips. No rheumatoid arthritis. He is placing his pain intensity today as a 7/10. He is not a fall risk, but has had a fall in last 3 months. Apparently, this was a balance issue. He indicates he is not on blood thinners. He is treated for hypertension. He has been on opioids for an extended period of time. He is a low risk for opioid addiction. He is placing pain impact score at 51/70, severe. PHYSICAL EXAMINATION: VITAL SIGNS: Blood pressure 123/56, pulse 66, respiratory rate 18 and unlabored. The patient is 97% on room air. Height 5 feet 5 inches tall, weight is 162.6 pounds, BMI calculated 27.1. GENERAL: Well-developed, well-nourished, well-hydrated 72-year-old male, [address] [address] PAIN MANAGEMENT CONSULTATION Name: DEE JOE Room #: REG CLEnoc Foster#: [id number] Admission: 08/11/18 Attend Phys: Yovani Gonzalez DO Discharge: Date of : 49 Report #: [id number] appearing stated age. Pain is rated around 9/10. HEENT: Normocephalic, atraumatic. Pupils equal, round, reactive to light. Speech fluent. EXTREMITIES: Show no clubbing, no cyanosis, no edema. MUSCULOSKELETAL: The patient again rises from the chair with use of arm rests. He does have an antalgic gait. Diffusely tender across the low back, well-healed surgical scars over the thoracolumbar area. Seated straight leg raising negative. Supine straight leg raising positive. MAYURI test negative. Modified Gaenslen's positive for axial low back pain, restriction of motion due to pain. ASSESSMENT: 1. Symptomatic lumbar radiculopathy. 2. Failed lumbar spine surgery. 3. Lumbosacral spondylosis with radiculopathy. 4. Chronic intractable pain. 5. Complicated medication management. PLAN: 1. The patient returns today in followup visit requesting refill of medications as well as to undergo epidural injection under fluoroscopic guidance. He reports the combination of medications along with epidural injections provide up to 60% improvement in overall pain. He returns today to undergo epidural injection under fluoroscopic guidance and to receive refills of his therapy. 2. The patient was provided prescription of hydrocodone 7.5/325 mg dose 1 tab p.o. q.6 hours p.r.n. for pain. I have given the patient #120, releases of today, 4 weeks from today, 2 months worth of medication. 3. The patient was provided prescription of tramadol 50 mg dose 1 tab p.o. q.6 hours p.r.n. for mild to moderate pain, #100 tablets, releasing today, 4 weeks from today, 2 months worth of medication. 4. We reviewed the fact that opiate medications are being used to provide analgesia adequate to support activities of daily living, not attempting to achieve a specific pain score on the 0-10 Visual Analog Scale. The current opiate medications are providing sufficient analgesia to allow the patient to participate in activities of daily living. The patient is not exhibiting any aberrant behavior suggestive of drug diversion. The patient is not having any adverse reactions to medications. The patient is not suffering from daytime somnolence or mental acuity changes. The patient is managing opiate-induced constipation with appropriate kwil-rkb-miuiljv agents and dietary considerations. The patient was counseled on concern for caution with operating a motor vehicle while using opiate medications. A physical exam was performed and the patient's functional status was evaluated. All patients with back pain were advised against the bed rest greater than 4 days and were advised to return to normal activities. Pain score assessment was noted and the treatment plan was reviewed with the patient. All current [address] [place] [address] PAIN MANAGEMENT CONSULTATION Name: DEE JOE [id number] Admission: 08/11/18 Attend Phys: Yovani oGnzalez DO Discharge: Date of : 47 Report #: [id number] medications, both prescribed and OTC were reviewed and reconciled on the electronic medical record. Tobacco screening was accomplished and smoking cessation was advised when indicated. BMI was noted and diet/exercise modification was recommended for all patients following outside normal parameters. I reviewed with the patient today their responsibilities to safeguard prescription medications, reviewed their responsibility to utilize medications only as prescribed by the physician. They are to seek and receive pain medications only from 1 physician group ( [facility]). They are to use 1 pharmacy and keep the clinic informed if they change pharmacies. Their responsibilities include making followup visits in a timely fashion and to avoid abrupt discontinuation of medication usage. Their responsibilities further include bringing their medications (bottles from the pharmacy with residual pills) to the visit for possible confirmation of pill counts and the patient understands it is their responsibility to submit to random drug screens to ensure both that the medications prescribed are present, and that no other controlled substances are present. All prescriptions provided today were generated electronically. 5. The patient was provided a prescription of diclofenac gel 1% solution applied topically up to 4 times a day. I have given him 3 tubes and 2 refills. The patient was to receive the generic form of this medication. 6. The patient has been consented to undergo a lumbar epidural injection, has been advised the risks and benefits of the procedure. These risks include but are not necessarily limited to bleeding, bruising, infection, worsening pain, no relief of pain, also risk of temporary or permanent muscle weakness, temporary or permanent nerve damage, possible paralysis and . The patient states understood and wished to proceed. 7. We will see the patient back in followup visit in 2 months for medication therapy, earlier if next in the series of epidural injections is necessary. PROCEDURE NOTE: DESCRIPTION OF PROCEDURE: Lumbar epidural steroid injection under fluoroscopic guidance. After obtaining written consent, the patient was taken back to fluoroscopy suite, placed in prone position with pillow under abdomen to decrease lumbar lordosis. Skin overlying lumbosacral area then prepped and draped in aseptic fashion. Lumbar intervertebral spaces were identified by AP fluoroscopy. Skin and subcutaneous tissue overlying target site of injection anesthetized with 3 mL of 1% lidocaine. A 20-gauge 3-1/2 inch Tuohy needle advanced under fluoroscopic guidance towards the epidural space using a paracentral approach. Epidural space identified using loss of resistance to air technique. After negative aspiration for heme [address] [address] PAIN MANAGEMENT CONSULTATION Name: DEE JOE Room #: REG GERALD Hutchison#: [id number] Admission: 08/11/18 Attend Phys: Yovani Gonzalez DO Discharge: Date of : 49 Report #: [id number] or cerebrospinal fluid, 1 mL of Omnipaque injected. Lumbar epidurogram confirmed using both AP and lateral fluoroscopy. After negative aspiration for heme or cerebrospinal fluid, 5 mL of a solution containing 2 mL 40 mg per mL, 80 mg total triamcinolone, 3 mL lidocaine 1% injected slowly. Needle retracted chcf, flushed with 1 mL of 1% lidocaine and removed. Sterile bandage placed over injection site. No new motor deficits present in lower extremity following procedure. The patient tolerated procedure well, carefully escorted to recovery room in stable condition. No apparent complications. After meeting discharge criteria, the patient discharged home. By: [id number] Yovani Gonzalez DO /nt
[2018-08-11 12:54] VITALS: BP 123/56
== END | disposition home or self-care (01) ==
LOC: PAIN 08-05 11:55
DX: M47.27 Other spondylosis with radiculopathy, lumbosacral region (principal); M96.1 Postlaminectomy syndrome, not elsewhere classified; G89.29 Other chronic pain; I10 Essential (primary) hypertension; Z79.891 Long term (current) use of opiate analgesic; Z79.899 Other long term (current) drug therapy; M19.90 Unspecified osteoarthritis, unspecified site

== ENCOUNTER → 2018-10-27 | Outpatient (CLI) | payer OTHER ==
[~2018-10-27] VITALS: Ht 165.1 cm; Wt 70.8 kg
--- NOTE | ~2018-10-27 | HPC ---
[facility] [place] [address] [address] PAIN MANAGEMENT CONSULTATION Name: DEE JOE Room #: REG CLEnoc MLalitFavian.#: [id number] Admission: 10/27/18 Attend Phys: Yovani Gonzalez DO Discharge: Date of : 49 Report #: [id number] THIS REPORT FOR: //name// CC: [facility] physician/PCP Yovani Thurston MD DATE OF SERVICE: 10/27/2018 CHIEF COMPLAINT: Low back pain, lower extremity pain with paresthesias. HISTORY OF PRESENT ILLNESS: As you know, the patient is a 73-year-old male who returns today in followup visit requesting to undergo lumbar epidural injection under fluoroscopic guidance. The patient indicates good efficacy with previous lumbar epidural injections. He states the pain is now at a level of 8/10. He describes the pain as sharp, weak in sensation, exacerbated by sitting, driving, improves with medication, lying down and epidural injections. He returns today to request an epidural injection under fluoroscopic guidance as he is seeing good benefit in the past with his prior pain physician, Dr. Dru Gonzalez. ALLERGIES: No known drug allergies. CURRENT MEDICATIONS: Tramadol, phentermine, hydrocodone, escitalopram, ibuprofen, lisinopril, metformin. SOCIAL HISTORY: The patient denies tobacco, alcohol, IV or illicit drug use. He is unaccompanied today. IMAGING: No new imaging available. PQRS: The patient has osteoarthritic change of the low back and bilateral hips. No rheumatoid arthritis. He is placing pain intensity today at 8/10. He is not a fall risk, has not had a fall in the last 3 months. He is not on blood thinners. He is treated for hypertension. He has been on chronic opioids for an extended period of time. He is at a moderate risk for opioid addiction. Pain impact score 51/70 indicating tjbrahty-by-dyrvco interference of daily activities secondary to pain. PHYSICAL EXAMINATION: VITAL SIGNS: Blood pressure 110/61, pulse 73, respiratory rate 14 and unlabored. The patient is 97% on room air. Height 5 feet 5 inches tall, weight 156 pounds, BMI calculated 26.0. GENERAL: Well-developed, well-nourished, well-hydrated, 73-year-old male, appears stated age, placing current pain score at 8/10. HEENT: Normocephalic, atraumatic. Pupils equal, round, reactive to light. EXTREMITIES: Show no clubbing, no cyanosis, no edema. [facility] [place] [address] [place] [address] PAIN MANAGEMENT CONSULTATION Name: DEE JOE [facility] [id number] Admission: 10/27/18 Attend Phys: Yovani Gonzalez DO Discharge: Date of : 49 Report #: [id number] MUSCULOSKELETAL: The patient had difficulty again rising from the chair. He does have to use armrest to assist. Gait is antalgic. Diffusely tender across the low back. Well-healed surgical scars over the thoracolumbar area. Seated straight leg raising negative. Supine straight leg raising positive. ASSESSMENT: 1. Symptomatic lumbar radiculopathy. 2. Failed lumbar spine surgery. 3. Lumbosacral spondylosis with radiculopathy. 4. Chronic intractable pain. 5. Complicated medication management. PLAN: 1. The patient returns today in followup visit requesting to undergo next in the series of lumbar epidural injections. He has noted good benefit with 3 previous epidural injections. He returns today to undergo the next in the series. He has been advised of risks and benefits of the procedure, states understood and wished to proceed. 2. The patient was provided a prescription of diclofenac gel 1% solution applied topically up to 3 times a day, was given prescription with 2 refills, 3 months' worth of medication. We reviewed the fact that opiate medications are being used to provide analgesia adequate to support activities of daily living, not attempting to achieve a specific pain score on the 0-10 Visual Analog Scale. The current opiate medications are providing sufficient analgesia to allow the patient to participate in activities of daily living. The patient is not exhibiting any aberrant behavior suggestive of drug diversion. The patient is not having any adverse reactions to medications. The patient is not suffering from daytime somnolence or mental acuity changes. The patient is managing opiate-induced constipation with appropriate qide-cnj-iblmhmr agents and dietary considerations. The patient was counseled on concern for caution with operating a motor vehicle while using opiate medications. A physical exam was performed and the patient's functional status was evaluated. All patients with back pain were advised against the bed rest greater than 4 days and were advised to return to normal activities. Pain score assessment was noted and the treatment plan was reviewed with the patient. All current medications, both prescribed and OTC were reviewed and reconciled on the electronic medical record. Tobacco screening was accomplished and smoking cessation was advised when indicated. BMI was noted and diet/exercise modification was recommended for all patients following outside normal parameters. I reviewed with the patient today their responsibilities to [facility] [address] [place] [address] PAIN MANAGEMENT CONSULTATION Name: DEE JOE Room #: REG CLEnoc Hutchison#: [id number] Admission: 10/27/18 Attend Phys: Yovani Gonzalez DO Discharge: Date of : 47 Report #: [id number] prescription medications, reviewed their responsibility to utilize medications only as prescribed by the physician. They are to seek and receive pain medications only from 1 physician group ( [facility]). They are to use 1 pharmacy and keep the clinic informed if they change pharmacies. Their responsibilities include making followup visits in a timely fashion and to avoid abrupt discontinuation of medication usage. Their responsibilities further include bringing their medications (bottles from the pharmacy with residual pills) to the visit for possible confirmation of pill counts and the patient understands it is their responsibility to submit to random drug screens to ensure both that the medications prescribed are present, and that no other controlled substances are present. All prescriptions provided today were generated electronically. 3. The patient was provided prescription of hydrocodone 7.5/325 one tab p.o. q. 6 hours p.r.n. for pain. I have given the patient #120, releases of today. 4. The patient was provided prescription of tramadol 50 mg dose 1 tab p.o. q.i.d. p.r.n. lnzx-di-jbmmraol pain. I have given the patient #60 tablets, 2 refills. 5. We will see the patient back in followup visit on an as needed basis. He is in the process of finding a physician in his area to receive refill of medications as he has been advised that medication management cannot be provided on the same day the patient is undergoing injections and this can be somewhat own or some for the patient given his distance he has to drive to receive either treatment. He is going to look to find a physician in his area to take over his medication management. He will follow up with our clinic for epidural injections. I advised the patient if he is unable to find this physician, he can return for his refill of medications, but they do have to be on separate occasions. PROCEDURE NOTE DESCRIPTION OF PROCEDURE: Lumbar epidural steroid injection under fluoroscopic guidance. After obtaining written consent, the patient was taken back to fluoroscopy suite, placed in prone position with pillow under abdomen to decrease lumbar lordosis. Skin overlying lumbosacral area was then prepped and draped in aseptic fashion. Lumbar intervertebral spaces were identified by AP fluoroscopy. Skin and subcutaneous tissue overlying target site of injection was anesthetized with 3 mL of 1% lidocaine. A 20-gauge 3-1/2 inch Tuohy needle advanced under fluoroscopic guidance towards the epidural space using a paramedian approach. Epidural space identified using loss of resistance to air technique. After negative aspiration for heme or [facility] [place] [address] [place] [address] PAIN MANAGEMENT CONSULTATION Name: DEE JOE Room #: REG GERALD Hutchison#: [id number] Admission: 10/27/18 Attend Phys: Yovani Gonzalez DO Discharge: Date of : 49 Report #: [id number] cerebrospinal fluid, 1 mL of Omnipaque injected. Lumbar epidurogram confirmed using both AP and lateral fluoroscopy. After negative aspiration for heme or cerebrospinal fluid, 5 mL of a solution containing 2 mL 40 mg per mL, 80 mg total triamcinolone, 3 mL of lidocaine 1% injected slowly. Needle retracted [facility], flushed with 1 mL of 1% lidocaine and then removed. Sterile bandage placed over injection site. No new motor deficits present in lower extremity following procedure. The patient tolerated procedure well, carefully escorted to recovery room in stable condition. No apparent complications. After meeting discharge criteria, the patient discharged home. By: [id number] Yovani Gonzalez DO /nt
[2018-10-27 13:48] VITALS: BP 110/61
--- NOTE | 2018-10-27 14:01 | NUR ---
Pain Clinic Assessment: 1. History of Osteoarthritis: Not Applicable History of Rheumatoid Arthritis: Not Applicable 2. Height: 5 ft. 5 in. 165.1 cm. Weight: 156.0 lb. oz. 70.761 kg. Patient's BMI: 26.0 3. Vital Signs: BP: 110/61 Pulse: 73 Resp: 14 Temp: 02 Sat: 97 ECG Mon: 4. Pain Intensity: 8 5. Fall Risk: Dizziness: N Needs help standing or walking: N Fallen in the last 3 months: N Fall risk comments: 6. Patient on Blood Thinner: None 7. History of Hypertension: Y 8. Opioid Therapy greater than 6 weeks: Y Opiate Contract Signed: 09/19/17 9. Risk Assessment Tool Provided: LOW RISK 11/29 10. Functional Assessment Tool: 11. Recreational Drug Use: Never Drug Type: Tobacco Use: Never Smoker Tobacco Type: Amount or Packs/day: How Many Years: Alcohol Use: No Frequency: Quant:
== END | disposition home or self-care (01) ==
LOC: PAIN 06:48
DX: M54.16 Radiculopathy, lumbar region (principal); Z79.899 Other long term (current) drug therapy

== ENCOUNTER → 2018-12-16 | Outpatient (CLI) | payer OTHER ==
[~2018-12-16] VITALS: Ht 165.1 cm; Wt 72.3 kg
[2018-12-16 11:25] VITALS: BP 106/61
--- NOTE | 2018-12-23 07:49 | HPC ---
[facility] [address] [place] [address] PAIN MANAGEMENT CONSULTATION Name: DEE JOE Room #: REG GERALD M.R.#: [id number] Admission: 12/16/18 ������������������ Attend Phys: Yovani Gonzalez DO Discharge: ������������������ Date of : 49 Report #: [id number] THIS REPORT FOR: //name// CC: [facility] physician/PCP Yovani Thurston MD DATE OF SERVICE: 12/16/2018 REFERRING PHYSICIAN: Destin Thurston MD CHIEF COMPLAINT: Low back pain, lower extremity pain and paresthesias. HISTORY OF PRESENT ILLNESS: As you know, the patient is a 73-year-old male who returns today in followup visit for refill of medication management. He is reporting 90% improvement in overall pain with a combination of medications and the epidural injection provided at our last visit. He states despite this 90% improvement in overall pain, he is experiencing pain scores of 8-9/10. This does not correlate with the 90% improvement reported by the patient directly. I have called the patient's attention to this inconsistency. The patient indicates that this is the pain level he has today. He returns requesting refill on medications. He has been stabilized on a dose of medication by my partner, Dr. Dru Gonzalez for an extended period of time. He has been appropriate with his use of medications according to the chart and he wishes continued therapy at current dosing. He uses Bradford 7.5/325 four a day and an intermittent tramadol dose when pain is significantly more difficult to tolerate. The combination of medications along with the epidural injection reportedly provides good benefit. He returns requesting refill of medications today. He denies new injury, new trauma or any changes in medical history since our last visit. ALLERGIES: No known drug allergies. CURRENT MEDICATIONS: Tramadol 50 mg one tab p.o. q. 6 hours p.r.n. moderate pain, phentermine 37.5 mg once a day, hydrocodone 7.5/325 one tab p.o. q. 6 hours p.r.n. for pain, citalopram 10 mg once a day, lisinopril 20 mg once a day, metformin 500 mg twice a day, diclofenac gel apply topically 1% solution 4 times a day. SOCIAL HISTORY: The patient denies tobacco, alcohol, IV or illicit drug use. He is unaccompanied today. IMAGING: No new imaging available. PQRS: The patient has known arthritic changes of the lumbar spine, bilateral hips, no rheumatoid arthritis. He is placing pain intensity of 8-9/10[place] [address] PAIN MANAGEMENT CONSULTATION Name: DEE JOE Room #: REG CL Foster#: [id number] Admission: 12/16/18 ������������������ Attend Phys: Yovani Gonzalez DO Discharge: ������������������ Date of : 47 Report #: [id number] not a fall risk, has not had a fall in the last 3 months. He is not on blood thinners. He is treated for hypertension. He has been on chronic opioid medication management and is under contract with [facility]. He is a low to moderate risk for opioid addiction. He is placing pain impact score at 51/70, severe interference of daily activities secondary to pain. PHYSICAL EXAMINATION: VITAL SIGNS: Blood pressure 106/61, pulse 73, respiratory rate 14 and unlabored. The patient is 97% on room air, height 5 feet 5 inches tall, weight 159.4 pounds, BMI calculated 26.5. GENERAL: Well-developed, well-nourished, well-hydrated 73-year-old male appearing stated age, pain is rated anywhere from 8-9/10. HEENT: Normocephalic, atraumatic. Pupils equal, round, reactive to light. EXTREMITIES: Show no clubbing, no cyanosis, and no edema. MUSCULOSKELETAL: Seated straight leg raising is negative. Supine straight leg raising is negative. MAYURI test is negative. Modified Gaenslen's positive for axial low back pain. Ankle clonus negative. Babinski is negative. The patient is able to rise from a seated position without much difficulty. Gait appears mildly antalgic. ASSESSMENT: 1. Symptomatic lumbar radiculopathy. 2. Failed lumbar spine surgery. 3. Lumbosacral spondylosis with radiculopathy. 4. Chronic intractable pain. 5. Complicated medication management. 6. Opioid dependency. PLAN: 1. The patient returns today in followup visit indicating combination of 90% improvement in overall pain utilizing epidural injections and medication management. Despite this 90% improvement in symptoms, the patient continues to report pain 8-9/10. This is very inconsistent with his reporting. I have called the patient's attention to this today. He states that his 8-9/10 pain is without pain medication. He has requested continuation of medication management at this time. We discussed with the patient new opioid epidemic information and the use of opioids and long-term management of pain has not been shown to be efficacious, no recommended dosing parameter. We discussed the possibility of ultimately weaning off the medication as I believe opioids will be ultimately discontinued for chronic pain issues as again literatures indicate no long-term efficacious findings with the use of opioids in chronic pain. We have agreed to continue the patient on the medication at this time with the understanding that ultimately he will be weaning off these therapies. 2. The patient was provided prescription of tramadol 50 mg dose 1 tab p.o. q. 6 hours p.r.n. [id number] pain, #100, releasing today, 4 weeks from today and 8 weeks from today, 3 months' worth of medication. [facility] [address] [place] [address] PAIN MANAGEMENT CONSULTATION Name: DEE JOE Room #: REG GERALD Hutchison#: [id number] Admission: 12/16/18 ������������������ Attend Phys: Yovani Gonzalez DO Discharge: ������������������ Date of : 47 Report #: [id number] 3. The patient was provided prescription of Bradford 7.5/325 one tab p.o. q. 6 hours p.r.n. for pain, #120, releasing today, 4 weeks from today, 8 weeks from today, 3 months' worth of medication. We reviewed the fact that opiate medications are being used to provide analgesia adequate to support activities of daily living, not attempting to achieve a specific pain score on the 0-10 Visual Analog Scale. The current opiate medications are providing sufficient analgesia to allow the patient to participate in activities of daily living. The patient is not exhibiting any aberrant behavior suggestive of drug diversion. The patient is not having any adverse reactions to medications. The patient is not suffering from daytime somnolence or mental acuity changes. The patient is managing opiate-induced constipation with appropriate sdbx-wje-iarlipr agents and dietary considerations. The patient was counseled on concern for caution with operating a motor vehicle while using opiate medications. A physical exam was performed and the patient's functional status was evaluated. All patients with back pain were advised against the bed rest greater than 4 days and were advised to return to normal activities. Pain score assessment was noted and the treatment plan was reviewed with the patient. All current medications, both prescribed and OTC were reviewed and reconciled on the electronic medical record. Tobacco screening was accomplished and smoking cessation was advised when indicated. BMI was noted and diet/exercise modification was recommended for all patients following outside normal parameters. I reviewed with the patient today their responsibilities to safeguard prescription medications, reviewed their responsibility to utilize medications only as prescribed by the physician. They are to seek and receive pain medications only from 1 physician group ( [facility]). They are to use 1 pharmacy and keep the clinic informed if they change pharmacies. Their responsibilities include making followup visits in a timely fashion and to avoid abrupt discontinuation of medication usage. Their responsibilities further include bringing their medications (bottles from the pharmacy with residual pills) to the visit for possible confirmation of pill counts and the patient understands it is their responsibility to submit to random drug screens to ensure both that the medications prescribed are present, and that no other controlled substances are present. All prescriptions provided today were generated electronically. 4. The patient was provided prescription of diclofenac gel 1% solution, apply topically up to 4 inches 4 times a day. He was given 3 tubes 100 grams each with 2 refills, 3 months' worth of medication. [address] [address] PAIN MANAGEMENT CONSULTATION Name: DEE JOE Room #: REG GERALD Hutchison#: [id number] Admission: 12/16/18 ������������������ Attend Phys: Yovani Gonzalez DO Discharge: ������������������ Date of : 47 Report #: [id number] 5. We will see the patient back in followup visit in 3 months for medication adjustments. ��������������������������������������������� <ELECTRONICALLY SIGNED> ���������������������������������������� By: Yovani Gonzalez DO ��������������������������������������������� 12/23/18 0749 0923 2029 Yovani Gonzalez DO /nt
== END ==
LOC: PAIN 10-27 10:19
DX: M47.27 Other spondylosis with radiculopathy, lumbosacral region (principal); G89.4 Chronic pain syndrome; F11.20 Opioid dependence, uncomplicated

== ENCOUNTER → 2019-02-10 | Outpatient (CLI) | payer OTHER ==
[~2019-02-10] VITALS: Ht 165.1 cm; Wt 74.4 kg
[2019-02-10 11:22] VITALS: BP 132/70
--- NOTE | 2019-02-10 11:40 | NUR ---
Pain Clinic Assessment: 1. History of Osteoarthritis: Not Applicable History of Rheumatoid Arthritis: Not Applicable 2. Height: 5 ft. 5 in. 165.1 cm. Weight: 164.0 lb. oz. 74.390 kg. Patient's BMI: 27.3 3. Vital Signs: BP: 132/70 Pulse: 65 Resp: 14 Temp: 02 Sat: 100 ECG Mon: 4. Pain Intensity: 10 5. Fall Risk: Dizziness: N Needs help standing or walking: N Fallen in the last 3 months: N Fall risk comments: 6. Patient on Blood Thinner: None 7. History of Hypertension: Y 8. Opioid Therapy greater than 6 weeks: Y Opiate Contract Signed: 09/19/17 9. Risk Assessment Tool Provided: LOW RISK 11/29 10. Functional Assessment Tool: 11. Recreational Drug Use: Never Drug Type: Tobacco Use: Smoker,Current Status Unk Tobacco Type: Amount or Packs/day: How Many Years: Alcohol Use: No Frequency: Quant:
--- NOTE | 2019-02-17 09:24 | HPC ---
[facility] [address] [address] PAIN MANAGEMENT CONSULTATION Name: DEE JOE Room #: REG CLEnoc M.Favian.#: [id number] Admission: 02/10/19 ������������������ Attend Phys: Yovani Gonzalez DO Discharge: ������������������ Date of : 47 Report #: [id number] THIS REPORT FOR: //name// CC: [place] physician/PCP Yovani Gonzalez Primary Care Physician Destin Thurston MD DATE OF SERVICE: 02/10/2019 CHIEF COMPLAINT: Low back pain, bilateral lower extremity pain and paresthesias. HISTORY OF PRESENT ILLNESS: As you know, the patient is a 73-year-old male who returns today in followup visit, requesting to undergo lumbar epidural injection under fluoroscopic guidance. He reports excellent benefit with previous epidural injections, returning today in followup visit to undergo next in the series of epidural injections. He has received approvals to undergo the procedure today. He is placing pain at 10/10. Difficulty with walking, going about activities of daily living due to pain. He describes the pain as sharpness, burning, numbness and tingling with weakness in the lower extremities. He indicates pain is exacerbated with sitting, driving, lifting, standing; improves with medications, lying down and previous epidural injections. He returns today to undergo epidural injection under fluoroscopic guidance to address 10/10 pain. ALLERGIES: No known drug allergies. CURRENT MEDICATIONS: See extensive list in chart. SOCIAL HISTORY: The patient denies tobacco, alcohol, IV or illicit drug use. He is unaccompanied today. IMAGING: No new imaging available. PHYSICAL EXAMINATION: VITAL SIGNS: Blood pressure 132/70, pulse 65, respiratory rate 14 and unlabored. The patient is 100% on room air. Height 5 feet 5 inches tall, weight 164 pounds, BMI calculated 27.3. GENERAL: Well-developed, well-nourished, well-hydrated 73-year-old male appearing stated age, placing pain score today at 10/10. HEENT: Normocephalic, atraumatic. Pupils equal, round, reactive to light. EXTREMITIES: Show no clubbing, no cyanosis, and no edema. MUSCULOSKELETAL: Lower extremity strength appears symmetrical 5/5. Slight giveaway strength noted with hip flexion on the left when compared to the right. Seated straight leg raising negative. Supine straight leg raising negative. [address] [address] PAIN MANAGEMENT CONSULTATION Name: DEE JOE Room #: REG GERALD Hutchison#: [id number] Admission: 02/10/19 ������������������ Attend Phys: Yovani Gonzalez DO Discharge: ������������������ Date of : 47 Report #: [id number] Job's test negative. Modified Gaenslen's positive for axial low back pain. ASSESSMENT: 1. Chronic lumbar radiculopathy. 2. Failed lumbar spine surgery. 3. Lumbosacral spondylosis with radiculopathy. 4. Chronic intractable pain. 5. Complicated medication management. 6. Opioid dependency. PLAN: 1. The patient has returned today in followup visit to undergo lumbar epidural injection under fluoroscopic guidance. He is addressing pain at 10/10 at this point. He has requested this epidural injection to build on success of previous intervention where he has received up to 90% improvement in overall pain. He has been advised the risks and benefits of the procedure, states he understood and wished to proceed. 2. No medication changes made at today's visit. The patient will continue current medical therapy as previously prescribed. 3. We will see the patient back in followup visit on an as-needed basis for possible next in the series of epidural injections. Otherwise, we will see him back in followup visit for medication management as previously made appointments were completed. PROCEDURE NOTE DESCRIPTION OF PROCEDURE: L5-S1 interlaminar epidural steroid injection under fluoroscopic guidance. After obtaining written consent, the patient was taken back to fluoroscopy suite, placed in prone position with pillow under abdomen to decrease lumbar lordosis. Skin overlying lumbosacral area then prepped and draped in aseptic fashion. Lumbar intervertebral spaces identified by AP fluoroscopy. Skin and subcutaneous tissue overlying target site of injection anesthetized with 3 mL of 1% lidocaine. A 20-gauge 3-1/2 inch Tuohy needle advanced under fluoroscopic guidance towards the epidural space using a parasagittal approach. Epidural space identified using loss of resistance to air technique. After negative aspiration for heme or cerebrospinal fluid, 1 mL of Omnipaque injected. Lumbar epidurogram confirmed using both AP and lateral fluoroscopy. After negative aspiration for heme or cerebrospinal fluid, 5 mL of a solution containing 2 mL 40 mg per mL, 80 mg total triamcinolone, 3 mL lidocaine 1% injected then slowly. Needle then retracted approximately half way, flushed with 1 mL of 1% lidocaine and then removed. Sterile bandage placed over injection site. No new motor deficits present in lower extremity following procedure. [facility] [address] [place] [address] PAIN MANAGEMENT CONSULTATION Name: DEE JOE Room #: ERICKSON Hutchison#: [id number] Admission: 02/10/19 ������������������ Attend Phys: Yovani Gonzalez DO Discharge: ������������������ Date of : 49 Report #: [id number] The patient tolerated procedure well, carefully escorted to recovery room in stable condition. No apparent complications. After meeting discharge criteria, the patient discharged home. ��������������������������������������������� <ELECTRONICALLY SIGNED> ���������������������������������������� By: Yovani Gonzalez DO ��������������������������������������������� 02/17/19 0924 0832 0934 Yovani Gonzalez DO /nt
== END | disposition home or self-care (01) ==
LOC: PAIN 07:00
DX: M47.27 Other spondylosis with radiculopathy, lumbosacral region (principal); G89.29 Other chronic pain; M96.1 Postlaminectomy syndrome, not elsewhere classified; F11.20 Opioid dependence, uncomplicated; F17.210 Nicotine dependence, cigarettes, uncomplicated; Z79.899 Other long term (current) drug therapy; Z98.890 Other specified postprocedural states

== ENCOUNTER → 2019-03-23 | Outpatient (CLI) | payer OTHER ==
[~2019-03-23] VITALS: Ht 165.1 cm; Wt 74.3 kg
[2019-03-23 12:36] VITALS: BP 123/62
--- NOTE | 2019-03-23 12:43 | NUR ---
Pain Clinic Assessment: 1. History of Osteoarthritis: Not Applicable History of Rheumatoid Arthritis: Not Applicable 2. Height: 5 ft. 5 in. 165.1 cm. Weight: 163.8 lb. oz. 74.299 kg. Patient's BMI: 27.3 3. Vital Signs: BP: 123/62 Pulse: 16 Resp: 65 Temp: 02 Sat: 99 ECG Mon: 4. Pain Intensity: 8 5. Fall Risk: Dizziness: N Needs help standing or walking: N Fallen in the last 3 months: N Fall risk comments: 6. Patient on Blood Thinner: None 7. History of Hypertension: Y 8. Opioid Therapy greater than 6 weeks: Y Opiate Contract Signed: 09/19/17 9. Risk Assessment Tool Provided: LOW RISK 11/29 10. Functional Assessment Tool: 11. Recreational Drug Use: Never Drug Type: Tobacco Use: Smoker,Current Status Unk Tobacco Type: Chewing Tobacco Amount or Packs/day: 1/3 CAN How Many Years: Alcohol Use: No Frequency: Quant:
--- NOTE | 2019-03-30 13:03 | HPC ---
[facility] [address] [place] [address] PAIN MANAGEMENT CONSULTATION Name: DEE JOE Room #: REG CLEnoc MMalgorzata.#: [id number] Admission: 03/23/19 ������������������ Attend Phys: Yovani Gonzalez DO Discharge: ������������������ Date of : 47 Report #: [id number] THIS REPORT FOR: //name// CC: [facility] physician/PCP Yovani Thruston MD DATE OF SERVICE: 03/23/2019 CHIEF COMPLAINT: Low back pain, bilateral lower extremity pain and paresthesias. HISTORY OF PRESENT ILLNESS: As you know, the patient is a 73-year-old male who returns today in followup visit for refill of medications. He wishes also to begin the prior authorization process to undergo lumbar epidural injection under fluoroscopic guidance to address lumbar radicular symptoms. He is placing pain score at 8/10. The patient denies new injury or trauma that may have led to symptom recurrence. He typically receives good efficacy with each epidural injection, but unfortunately his symptoms do tend to return. He returns today for refill of medications and to begin the process of authorization for next in the series of epidural injections to build on success of previous intervention. ALLERGIES: No known drug allergies. CURRENT MEDICATIONS: Metformin 500 mg once a day, lisinopril 20 mg per day, citalopram 10 mg per day, hydrocodone/acetaminophen 7.5/325 four times a day p.r.n. pain, diclofenac gel 1% solution applied topically up to 4 times a day, tramadol 50 mg p.o. q.8 hours p.r.n. mild pain. SOCIAL HISTORY: The patient denies tobacco, alcohol, IV or illicit drug use. He is unaccompanied today. IMAGING: There is no new imaging available. PHYSICAL EXAMINATION: VITAL SIGNS: Blood pressure is 123/62, pulse 65, respiratory rate 16 and unlabored. The patient 99% on room air, height 5 feet 5 inches tall, weight 163.8 pounds, BMI calculated 27.3. GENERAL: Well-developed, well-nourished, well-hydrated 73-year-old male appearing stated age, placing current pain score at around 8/10. HEENT: Normocephalic, atraumatic. Pupils equal, round, reactive to light. Extraocular muscles are intact. EXTREMITIES: Show no clubbing, no cyanosis, and no edema. MUSCULOSKELETAL: Lower extremity strength remains symmetrical 5/5. Muscle bulk and tone symmetrical in comparing left lower extremity to right. Seated straight leg raising negative. Supine straight leg raising negative. [address] [address] PAIN MANAGEMENT CONSULTATION Name: DEE JOE Room #: REG [facility] Foster#: [id number] Admission: 03/23/19 ������������������ Attend Phys: Yovani Gonzalez DO Discharge: ������������������ Date of : 49 Report #: [id number] test negative. Modified Gaenslen's positive for axial low back pain. Ankle clonus negative. Babinski is negative. ASSESSMENT: 1. Chronic lumbar radiculopathy. 2. Failed lumbar spine surgery. 3. Lumbosacral spondylosis with radiculopathy. 4. Complicated medication management utilizing scheduled medications. 5. Opioid dependency. 6. Chronic intractable pain. PLAN: 1. The patient returns today in followup visit for continuation of medication therapy. The patient feels medications are working beneficially for pain control. He indicates pain improvement of about 60% with medication management. This in conjunction with intermittent epidural injections do provide good and prolonged benefit allowing the patient to go about his activities of daily living. He returns today for refill of medications and begin the process of authorization for an epidural injection. 2. We reviewed the fact that opiate medications are being used to provide analgesia adequate to support activities of daily living, not attempting to achieve a specific pain score on the 0-10 Visual Analog Scale. The current opiate medications are providing sufficient analgesia to allow the patient to participate in activities of daily living. The patient is not exhibiting any aberrant behavior suggestive of drug diversion. The patient is not having any adverse reactions to medications. The patient is not suffering from daytime somnolence or mental acuity changes. The patient is managing opiate-induced constipation with appropriate qiob-par-jovlrja agents and dietary considerations. The patient was counseled on concern for caution with operating a motor vehicle while using opiate medications. A physical exam was performed and the patient's functional status was evaluated. All patients with back pain were advised against the bed rest greater than 4 days and were advised to return to normal activities. Pain score assessment was noted and the treatment plan was reviewed with the patient. All current medications, both prescribed and OTC were reviewed and reconciled on the electronic medical record. Tobacco screening was accomplished and smoking cessation was advised when indicated. BMI was noted and diet/exercise modification was recommended for all patients following outside normal parameters. I reviewed with the patient today their responsibilities to safeguard prescription medications, reviewed their responsibility to utilize medications only as prescribed by the physician. They are to seek and receive pain medications only from 1 physician group ([facility]). They are to use 1 pharmacy and keep the clinic informed if they change pharmacies. Their [facility] [address] [place] [address] PAIN MANAGEMENT CONSULTATION Name: DEE JOE Room #: REG CLI Foster#: [id number] Admission: 03/23/19 ������������������ Attend Phys: Yovani Gonzalez DO Discharge: ������������������ Date of : 47 Report #: [id number] responsibilities include making followup visits in a timely fashion and to avoid abrupt discontinuation of medication usage. Their responsibilities further include bringing their medications (bottles from the pharmacy with residual pills) to the visit for possible confirmation of pill counts and the patient understands it is their responsibility to submit to random drug screens to ensure both that the medications prescribed are present, and that no other controlled substances are present. All prescriptions provided today were generated electronically. 3. The patient was provided prescription for hydrocodone 7.5/325 one tab p.o. q.6 hours p.r.n. for pain. I have given the patient #120 tablets, releasing today, 4 weeks from today and 8 weeks from today, 3 months' worth of medication. 4. The patient was provided prescription for tramadol 50 mg dose 1 tab every 6 hours p.r.n. for mild to moderate pain. I have given the patient #100 tablets, releasing today, 4 weeks from today, 8 weeks from today, 3 months' worth of medication. 5. We will begin the authorization process for the patient to undergo next in the series of epidural injections under fluoroscopic guidance. The patient will await our prior authorization approval. Once this has been done, we will contact the patient to schedule him back to do an ejection. This may take anywhere from 4-7 working days begin the process immediately. ��������������������������������������������� <ELECTRONICALLY SIGNED> ���������������������������������������� By: Yovani Gonzalez DO ��������������������������������������������� 03/30/19 1303 1004 1625 Yovani Gonzalez DO /nt
== END ==
LOC: PAIN 06:48
DX: M47.27 Other spondylosis with radiculopathy, lumbosacral region (principal); G89.29 Other chronic pain; Z79.891 Long term (current) use of opiate analgesic

== ENCOUNTER → 2019-04-14 | Outpatient (CLI) | payer OTHER ==
[~2019-04-14] VITALS: Ht 167.6 cm; Wt 76.2 kg
[2019-04-14 10:48] VITALS: BP 142/58
--- NOTE | 2019-04-14 10:50 | NUR ---
Pain Clinic Assessment: 1. History of Osteoarthritis: Not Applicable History of Rheumatoid Arthritis: Not Applicable 2. Height: 5 ft. 6 in. 167.6 cm. Weight: 168.0 lb. oz. 76.204 kg. Patient's BMI: 27.1 3. Vital Signs: BP: 142/58 Pulse: 69 Resp: 16 Temp: 02 Sat: 98 ECG Mon: 4. Pain Intensity: 9 5. Fall Risk: Dizziness: N Needs help standing or walking: N Fallen in the last 3 months: N Fall risk comments: 6. Patient on Blood Thinner: None 7. History of Hypertension: Y 8. Opioid Therapy greater than 6 weeks: Y Opiate Contract Signed: 09/19/17 9. Risk Assessment Tool Provided: LOW RISK 11/29 10. Functional Assessment Tool: 11. Recreational Drug Use: Never Drug Type: Tobacco Use: Smoker,Current Status Unk Tobacco Type: Chewing Tobacco Amount or Packs/day: How Many Years: Alcohol Use: No Frequency: Quant:
--- NOTE | 2019-04-20 16:56 | HPC ---
[facility] [place] [address] PAIN MANAGEMENT CONSULTATION Name: DEE JOE Room #: REG CLEnoc Anastasia.#: [id number] Admission: 04/14/19 ������������������ Attend Phys: Yovani Gonzalez DO Discharge: ������������������ Date of : 49 Report #: [id number] THIS REPORT FOR: //name// CC: FAM physician/PCP Yovani Thurston MD DATE OF SERVICE: 04/14/2019 REFERRING PHYSICIAN: Destin Thurston M.D. CHIEF COMPLAINT: Low back pain, bilateral lower extremity pain and paresthesias. HISTORY OF PRESENT ILLNESS: As you know, the patient is a 73-year-old male who returns today in followup visit having received pre-certification to undergo lumbar epidural injection under fluoroscopic guidance to address lumbar radicular symptoms. The patient is reporting pain today at a level of 9/10. He states he suffered no new injury, no new trauma that may have led to symptom recurrence. He returns today to undergo next in the series of lumbar epidural injections to address lumbar radicular pain. ALLERGIES: No known drug allergies. CURRENT MEDICATIONS: Metformin 500 mg once a day, lisinopril 20 mg once a day, citalopram 10 mg once a day, hydrocodone/acetaminophen 7.5/325 four times a day, diclofenac gel 1% solution applied topically up to 4 times a day and tramadol 50 mg q. 8 hours p.r.n. mild pain. SOCIAL HISTORY: The patient denies tobacco, alcohol, IV or illicit drug use. He is unaccompanied today. IMAGING: No new imaging available. PHYSICAL EXAMINATION: VITAL SIGNS: Blood pressure 142/58, pulse 69 and respiratory rate 16 and unlabored. The patient is 98% on room air. Height 5 feet 6 inches tall, weight 168 pounds and BMI calculated 27.1. GENERAL: Well-developed, well-nourished and well-hydrated 73-year-old male appearing stated age, pain is rated today at 9/10. HEENT: Normocephalic, atraumatic. Pupils equal, round and reactive to light. EXTREMITIES: Show no clubbing, no cyanosis and no edema. MUSCULOSKELETAL: Lower extremity strength equal and symmetrical 5/5. Muscle bulk and tone comparatively are equal and symmetrical. Seated straight leg raising negative. Supine straight leg raising negative. Job's test negative. Modified Gaenslen's positive for some axial low back pain. [address] [address] PAIN MANAGEMENT CONSULTATION Name: DEE JOE Room #: REG CLI Brigitte#: [id number] Admission: 04/14/19 ������������������ Attend Phys: Yovani Gonzalez DO Discharge: ������������������ Date of : 49 Report #: [id number] ASSESSMENT: 1. Symptomatic lumbar radiculopathy. 2. Failed lumbar spine surgery. 3. Lumbosacral spondylosis with radiculopathy. 4. Complicated medication management utilizing scheduled medications. 5. Opioid dependency. 6. Chronic intractable pain. PLAN: 1. The patient returns today in followup visit to undergo next in the series of lumbar epidural injections under fluoroscopic guidance. The patient reports good efficacy with epidural injections. He returns today to undergo the next in the series. 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 He has been advised of the risks and the benefits. He states understood and wishes to proceed. 2. No medication changes made at today's visit. The patient will continue current medical therapy as previously prescribed. 3. We will see the patient back in followup visit on an as-needed basis for possible next in a series of lumbar epidural injections. Otherwise, we will see him back in followup visit for medication management at our scheduled appointment. PROCEDURE NOTE PROCEDURE: L5-S1 interlaminar epidural steroid injection under fluoroscopic guidance. DESCRIPTION OF PROCEDURE: After obtaining written consent, the patient was taken back to fluoroscopy suite, placed in prone position with a pillow under abdomen to decrease lumbar lordosis. Skin overlying the lumbosacral area then prepped and draped in aseptic fashion. Lumbar intervertebral spaces identified by AP fluoroscopy. Skin and subcutaneous tissue overlying the target site of injection anesthetized with 3 mL of 1% lidocaine. A 20-gauge 3-1/2 inch Tuohy needle advanced under fluoroscopic guidance towards the epidural space using a midline approach. The epidural space identified using loss of resistance to air technique. After negative aspiration for heme or cerebrospinal fluid, 1 mL of Isovue injected. Lumbar epidurogram confirmed using both AP and lateral fluoroscopy. After negative aspiration for heme or cerebrospinal fluid, 5 mL of a solution containing 2 mL 40 mg per mL, 80 mg total triamcinolone and 3 mL lidocaine 1% injected slowly. Needle then retracted fdc, flushed with 1 mL of 1% lidocaine and removed. Sterile bandage placed over the injection site. No new motor deficits present in the lower extremity following the procedure. [facility] [address] [place] [address] PAIN MANAGEMENT CONSULTATION Name: DEE JOE Room #: REG CLI Anastasia.#: [id number] Admission: 04/14/19 ������������������ Attend Phys: Yovani Gonzalez DO Discharge: ������������������ Date of : 49 Report #: [id number] The patient tolerated the procedure well, carefully escorted to recovery room in stable condition. No apparent complications. After meeting discharge criteria, the patient discharged home. ��������������������������������������������� <ELECTRONICALLY SIGNED> ���������������������������������������� By: Yovani Gonzalez DO ��������������������������������������������� 04/20/19 1656 0901 1141 Yovani Gonzalez DO /nt
== END | disposition home or self-care (01) ==
LOC: PAIN 10:17
DX: M54.16 Radiculopathy, lumbar region (principal); G89.29 Other chronic pain; F17.220 Nicotine dependence, chewing tobacco, uncomplicated; Z79.899 Other long term (current) drug therapy; Z79.891 Long term (current) use of opiate analgesic

== ENCOUNTER → 2019-06-16 | Outpatient (CLI) | payer OTHER ==
[~2019-06-16] VITALS: Ht 165.1 cm; Wt 75.2 kg
[2019-06-16 09:34] VITALS: BP 129/63
--- NOTE | 2019-06-16 09:54 | NUR ---
Pain Clinic Assessment: 1. History of Osteoarthritis: DENIES History of Rheumatoid Arthritis: DENIES 2. Height: 5 ft. 5 in. 165.1 cm. Weight: 165.8 lb. oz. 75.206 kg. Patient's BMI: 27.6 3. Vital Signs: BP: 129/63 Pulse: 71 Resp: 14 Temp: 02 Sat: 100 ECG Mon: 4. Pain Intensity: 8 5. Fall Risk: Dizziness: N Needs help standing or walking: N Fallen in the last 3 months: N Fall risk comments: 6. Patient on Blood Thinner: None 7. History of Hypertension: Y 8. Opioid Therapy greater than 6 weeks: Y Opiate Contract Signed: 09/19/17 9. Risk Assessment Tool Provided: LOW RISK 11/29 10. Functional Assessment Tool: 11. Recreational Drug Use: Never Drug Type: Tobacco Use: Smoker,Current Status Unk Tobacco Type: Chewing Tobacco Amount or Packs/day: How Many Years: Alcohol Use: Yes Frequency: Weekly Quant: BEER ONCE A WEEK
--- NOTE | 2019-06-23 09:31 | HPC ---
[facility] [place] [address] [address] PAIN MANAGEMENT CONSULTATION Name: DEE JOE Room #: REG CLEnoc MMalgorzata.#: [id number] Admission: 06/16/19 ������������������ Attend Phys: Yovani Gonzalez DO Discharge: ������������������ Date of : 49 Report #: [id number] THIS REPORT FOR: //name// CC: FAM physician/PCP Yovani Thurston MD DATE OF SERVICE: 06/16/2019 REFERRING PHYSICIAN: Destin Thurston M.D. CHIEF COMPLAINT: Low back pain, bilateral lower extremity pain with paresthesias. HISTORY OF PRESENT ILLNESS: As you know, the patient is a 73-year-old male who returns today in followup visit for a refill of medications. He feels medications are working beneficially for pain control. The patient is reporting pain today at around 8/10. He denies side effects to medication including sleepiness, disorientation, confusion, mental slowing, or constipation that cannot be resolved with [id number]-[id number] medications. He returns for refill of medications and to begin the process of prior authorization for the next in the series of lumbar epidural injections. He denies new injury or trauma that may have led to continuation of pain. ALLERGIES: No known drug allergies. CURRENT MEDICATIONS: Metformin 500 mg once a day, lisinopril 20 mg once a day, citalopram 10 mg once a day, hydrocodone/acetaminophen 7.5/325 one tab every 6 hours p.r.n. for pain, tramadol 50 mg p.r.n. mild pain. Diclofenac gel 1% solution applied topically up to 4 times a day. SOCIAL HISTORY: The patient denies tobacco, alcohol, IV or illicit drug use. He is unaccompanied today. IMAGING: No new imaging available. PHYSICAL EXAMINATION: VITAL SIGNS: Blood pressure 129/63, pulse 71, respiratory rate 14 and unlabored. The patient is 100% on room air. Height 5 feet 5 inches tall, weight 165.8 pounds, BMI calculated 27.6. GENERAL: Well-developed, well-nourished, well-hydrated, 73-year-old male, appearing stated age. Pain is rated around 8/10. HEENT: Normocephalic, atraumatic. Pupils are equal, round, and reactive to light. Extraocular muscles are intact. Sclerae nonicteric without injection. EXTREMITIES: Show no clubbing, no cyanosis, and no edema. MUSCULOSKELETAL: Lower extremity strength remains symmetrical at 5/5. Muscle [facility] [address] [place] [address] PAIN MANAGEMENT CONSULTATION Name: DEE JOE Room #: REG CLI [facility].#: [id number] Admission: 06/16/19 ������������������ Attend Phys: Yovani Gonzalez DO Discharge: ������������������ Date of : 49 Report #: [id number] bulk and tone is equal and symmetrical in comparing left lower extremity to right. Seated straight leg raising is negative. Supine straight leg raising is negative. Job's test negative. Modified Gaenslen's positive for axial low back pain. Ankle clonus negative. Babinski's is negative. ASSESSMENT: 1. Symptomatic lumbar radiculopathy. 2. Failed lumbar spine surgery. 3. Lumbosacral spondylosis with radiculopathy. 4. Complicated medication management utilizing scheduled medications. 5. Opioid dependency. 6. Chronic intractable pain. PLAN: 1. The patient returns today in followup visit to receive refill on medications and to begin the process of prior authorization for the next in the series of lumbar epidural injections. The patient and I had a long discussion today about the use of opioid medications. I did have voiced my concerns about opioid medications for long-term treatment options and we also discussed recent lawsuits against two of the large manufacturers of opioids and the fact that these medications may not be further available in the very near future. We may ultimately have to wean off these medications. At present, the patient feels medications are working well and wishes no changes, but understands that he may ultimately need to do so. He has requested refills for the next 3 months. 2. We reviewed the fact that opiate medications are being used to provide analgesia adequate to support activities of daily living, not attempting to achieve a specific pain score on the 0-10 Visual Analog Scale. The current opiate medications are providing sufficient analgesia to allow the patient to participate in activities of daily living. The patient is not exhibiting any aberrant behavior suggestive of drug diversion. The patient is not having any adverse reactions to medications. The patient is not suffering from daytime somnolence or mental acuity changes. The patient is managing opiate-induced constipation with appropriate knly-sml-tluhesx agents and dietary considerations. The patient was counseled on concern for caution with operating a motor vehicle while using opiate medications. A physical exam was performed and the patient's functional status was evaluated. All patients with back pain were advised against the bed rest greater than 4 days and were advised to return to normal activities. Pain score assessment was noted and the treatment plan was reviewed with the patient. All current medications, both prescribed and OTC were reviewed and reconciled on the electronic medical record. Tobacco screening was accomplished and smoking cessation was advised when indicated. BMI was noted and diet/exercise modification was recommended for all patients following outside normal parameters. [address] [address] PAIN MANAGEMENT CONSULTATION Name: DEE JOE Room #: REG CLI [facility].#: [id number] Admission: 06/16/19 ������������������ Attend Phys: Yovani Gonzalez DO Discharge: ������������������ Date of : 49 Report #: [id number] I reviewed with the patient today their responsibilities to safeguard prescription medications, reviewed their responsibility to utilize medications only as prescribed by the physician. They are to seek and receive pain medications only from 1 physician group ( [facility]). They are to use 1 pharmacy and keep the clinic informed if they change pharmacies. Their responsibilities include making followup visits in a timely fashion and to avoid abrupt discontinuation of medication usage. Their responsibilities further include bringing their medications (bottles from the pharmacy with residual pills) to the visit for possible confirmation of pill counts and the patient understands it is their responsibility to submit to random drug screens to ensure both that the medications prescribed are present, and that no other controlled substances are present. All prescriptions provided today were generated electronically. 3. The patient was provided prescription of hydrocodone 7.5/325 one tab p.o. q. 6 hours p.r.n. for pain. I have given the patient #120, releasing today, 4 weeks from today, 8 weeks from today, 3 months' worth of medication. 4. The patient was provided prescription of tramadol 50 mg dose 1 tab p.o. t.i.d. p.r.n. bbtw-vi-ukdmlzos pain, #100 tablets, 2 refills, essentially 3 months' worth of medication. 5. The patient was provided refill prescription of diclofenac gel 1% solution. He is given 3 tubes with 2 refills, 3 months' worth of medication. 6. The patient and I did discuss that prior authorization will be necessary for the patient to undergo an epidural injection. We will begin the prior authorization process. Once this has been completed, we will have the patient return to undergo next in the series of lumbar epidural injections as he notes good efficacy with combination of injections and medications. We will keep the patient apprised of our progress in obtaining the authorization. ��������������������������������������������� <ELECTRONICALLY SIGNED> ���������������������������������������� By: Yovani Gonzalez DO ��������������������������������������������� 06/23/19 0931 0819 1340 Yovani Gonzalez DO /nt
== END ==
LOC: PAIN 06:58
DX: M47.27 Other spondylosis with radiculopathy, lumbosacral region (principal); F11.20 Opioid dependence, uncomplicated; G89.4 Chronic pain syndrome; Z79.899 Other long term (current) drug therapy; Z79.84 Long term (current) use of oral hypoglycemic drugs

== ENCOUNTER → 2019-07-21 | Outpatient (CLI) | payer OTHER ==
[~2019-07-21] VITALS: Ht 165.1 cm; Wt 75.1 kg
[2019-07-21 11:26] VITALS: BP 146/74
--- NOTE | 2019-07-21 11:31 | NUR ---
Pain Clinic Assessment: 1. History of Osteoarthritis: BACK History of Rheumatoid Arthritis: Not Applicable 2. Height: 5 ft. 5 in. 165.1 cm. Weight: 165.6 lb. oz. 75.116 kg. Patient's BMI: 27.6 3. Vital Signs: BP: 146/74 Pulse: 73 Resp: 16 Temp: 02 Sat: 97 ECG Mon: 4. Pain Intensity: 8 5. Fall Risk: Dizziness: Y Needs help standing or walking: N Fallen in the last 3 months: N Fall risk comments: 6. Patient on Blood Thinner: None 7. History of Hypertension: Y 8. Opioid Therapy greater than 6 weeks: Y Opiate Contract Signed: 09/19/17 9. Risk Assessment Tool Provided: LOW RISK 11/29 10. Functional Assessment Tool: 11. Recreational Drug Use: Never Drug Type: Tobacco Use: Smoker,Current Status Unk Tobacco Type: Amount or Packs/day: How Many Years: Alcohol Use: Yes Frequency: Quant:
--- NOTE | 2019-08-03 12:47 | HPC ---
[facility] [place] [address] PAIN MANAGEMENT CONSULTATION Name: DEE JOE Room #: REG CLEnoc ..#: [id number] Admission: 07/21/19 Attend Phys: Yovani Gonzalez DO Discharge: Date of : 49 Report #: [id number] THIS REPORT FOR: //name// CC: FAM physician/PCP Yovani Thurston MD DATE OF SERVICE: 07/21/2019 REFERRING PHYSICIAN: Destin Thurston MD CHIEF COMPLAINT: Low back pain, bilateral lower extremity pain and paresthesias. HISTORY OF PRESENT ILLNESS: As you know, the patient is a 73-year-old male who has returned today in followup visit to undergo lumbar epidural injection under fluoroscopic guidance to address lumbar radicular symptoms. He is placing his current pain score at 8/10. He states he has suffered no injury or trauma that may have led to symptom reoccurrence. He returns today in followup visit requesting to undergo lumbar epidural injection to address lumbar radicular pain that reoccurred spontaneously. ALLERGIES: No known drug allergies. CURRENT MEDICATIONS: See chart. SOCIAL HISTORY: The patient denies tobacco, alcohol, IV or illicit drug use. He is unaccompanied today. IMAGING: No new imaging available. PHYSICAL EXAMINATION: VITAL SIGNS: Blood pressure 146/74, pulse 73, respiratory rate 16 and unlabored. The patient is 97% on room air. Height 5 feet 5 inches tall, weight 165.6 pounds, BMI calculated 27.6. GENERAL: Well-developed, well-nourished, well-hydrated 73-year-old male appearing stated age, placing current pain score at 8/10. HEENT: Normocephalic, atraumatic. Pupils equal, round, reactive to light. Extraocular muscles are intact. Sclerae nonicteric without injection. NEUROLOGIC: Cranial nerves 2-12 grossly intact. Speech is fluent. EXTREMITIES: Show no clubbing, no cyanosis, no edema. MUSCULOSKELETAL: Lower extremity strength remains symmetrical 5/5. Muscle bulk and tone equal and symmetrical in comparing left lower extremity to right. Seated straight leg raising negative. Supine straight leg raising negative. Job's test negative. Modified Gaenslen's positive for axial low back pain. Ankle clonus negative. Babinski is negative. [address] [address] PAIN MANAGEMENT CONSULTATION Name: DEE JOE Room #: REG GERALD Hutchison#: [id number] Admission: 07/21/19 Attend Phys: Yovani Gonzalez DO Discharge: Date of : 49 Report #: [id number] ASSESSMENT: 1. Symptomatic lumbar radiculopathy. 2. Failed lumbar spine surgery. 3. Lumbosacral spondylosis with radiculopathy. 4. Complicated medication management utilizing scheduled medications. 5. Opioid dependency. 6. Chronic intractable pain. PLAN: 1. The patient returns today in followup visit to undergo lumbar epidural injection under fluoroscopic guidance to address 8/10 pain. The patient has done very well with previous epidural injections, hopeful to see similar improvement today. He has been advised risks and benefits of the procedure, states understood and wished to proceed. 2. No medication changes made at today's visit. The patient will continue current medical therapy as previously prescribed. 3. We will see the patient back in followup visit on an as needed basis for possible next in the series of lumbar epidural injections. Otherwise, we will see him back in 3 months from 06/16/2019 for medication refills. PROCEDURE: Lumbar epidural steroid injection under fluoroscopic guidance. After obtaining written consent, the patient was taken back to fluoroscopy suite, placed in prone position with pillow under abdomen to decrease lumbar lordosis. Skin overlying lumbosacral area then prepped and draped in aseptic fashion. Lumbar intervertebral spaces identified by AP fluoroscopy. Skin and subcutaneous tissue overlying target site of injection anesthetized with 3 mL of 1% lidocaine. A 20-gauge 3-1/2 inch Tuohy needle advanced under fluoroscopic guidance towards the epidural space using a parasagittal approach. Epidural space identified using loss of resistance to air technique. After negative aspiration for heme or cerebrospinal fluid, 1 mL of Omnipaque injected. Lumbar epidurogram confirmed using both AP and lateral fluoroscopy. After negative aspiration for heme or cerebrospinal fluid, 5 mL of a solution containing 2 mL 40 mg per mL, 80 mg total triamcinolone along with 3 mL of lidocaine 1% injected slowly. Needle then retracted approximately half way, flushed with 1 mL of 1% lidocaine and then removed. Sterile bandage placed over injection site. No new motor deficits present in lower extremity following procedure. The patient tolerated procedure well, carefully escorted to recovery room in [address] [address] PAIN MANAGEMENT CONSULTATION Name: DEE JOE Room #: REG GERALD Hutchison#: [id number] Admission: 07/21/19 Attend Phys: Yovani Gonzalez DO Discharge: Date of : 49 Report #: [id number] stable condition. No apparent complications. After meeting discharge criteria, the patient discharged home. <ELECTRONICALLY SIGNED> By: Yovani Gonzalez DO 08/03/19 1247 0811 1151 Yovani Gonzalez DO /nt
== END | disposition home or self-care (01) ==
LOC: PAIN 07-20 13:50
DX: M54.5 Low back pain (principal); M47.27 Other spondylosis with radiculopathy, lumbosacral region; M96.1 Postlaminectomy syndrome, not elsewhere classified; G89.29 Other chronic pain; F11.20 Opioid dependence, uncomplicated; Z79.899 Other long term (current) drug therapy

== ENCOUNTER → 2019-09-08 | Outpatient (CLI) | payer OTHER ==
[~2019-09-08] VITALS: Ht 175.3 cm; Wt 73.5 kg
[~2019-09-08] MED LIST changes: +DICLO GEL1 EACH TOP; +IBU600 MG PO
[2019-09-08 12:28] VITALS: BP 130/66
--- NOTE | 2019-09-08 12:34 | NUR ---
Pain Clinic Assessment: 1. History of Osteoarthritis: BACK History of Rheumatoid Arthritis: Not Applicable 2. Height: 5 ft. 9 in. 175.3 cm. Weight: 162.0 lb. oz. 73.483 kg. Patient's BMI: 23.9 3. Vital Signs: BP: 130/66 Pulse: 71 Resp: 16 Temp: 02 Sat: 100 ECG Mon: 4. Pain Intensity: 9-CURRENTLY 5. Fall Risk: Dizziness: N Needs help standing or walking: N Fallen in the last 3 months: N Fall risk comments: 6. Patient on Blood Thinner: None 7. History of Hypertension: Y 8. Opioid Therapy greater than 6 weeks: Y Opiate Contract Signed: 09/19/17 9. Risk Assessment Tool Provided: LOW RISK 11/29 10. Functional Assessment Tool: 11. Recreational Drug Use: Never Drug Type: Tobacco Use: Smoker,Current Status Unk Tobacco Type: Chewing Tobacco Amount or Packs/day: How Many Years: Alcohol Use: Yes Frequency: Special Occasions Quant:
--- NOTE | 2019-09-14 12:14 | HPC ---
[facility] [address] [address] PAIN MANAGEMENT CONSULTATION Name: DEE JOE Room #: REG CLEnoc MMalgorzata.#: [id number] Admission: 09/08/19 Attend Phys: Yovani Gonzalez DO Discharge: Date of : 49 Report #: [id number] THIS REPORT FOR: //name// CC: [facility] physician/PCP Yovani Thurston MD DATE OF SERVICE: 09/08/2019 CHIEF COMPLAINT: Chronic low back pain, bilateral lower extremity pain with paresthesias. HISTORY OF PRESENT ILLNESS: As you know, the patient is a 74-year-old male who has returned today in followup visit for medication management. He reports an 80% improvement in overall pain with the epidural injection provided at last visit. He returns today in followup visit requesting refill on medications. He trialled some ibuprofen over the past couple of weeks and stated improved his pain significantly. He wishes to make adjustments in his medication today in hopes of being able to wean off some of the opioid medications he has been using in the past. He returns today reporting pain score of about 3-9/10 depending on activity. The pain is exacerbated with sitting, driving, lifting, standing, walking, improves with medications, lying down and injections. He describes the pain as aching, weak, steady, stinging, sharp when describing pain. ALLERGIES: No known drug allergies. CURRENT MEDICATIONS: Hydrocodone, tramadol, diclofenac gel, citalopram, lisinopril, metformin. SOCIAL HISTORY: The patient denies tobacco, alcohol, IV or illicit drug use. He is unaccompanied today. IMAGING: No new imaging available. PHYSICAL EXAMINATION: VITAL SIGNS: Blood pressure 130/66, pulse 71, respiratory rate 16 and unlabored. The patient is 100% on room air. Height 5 feet 9 inches tall, weight 162 pounds, BMI calculated 23.9. GENERAL: A well-developed, well-nourished, well-hydrated 74-year-old male appearing stated age, pain score rated anywhere from 3-9/10 depending on activity. HEENT: Normocephalic, atraumatic. Pupils are equal, round, and reactive to light. EXTREMITIES: Show no clubbing, no cyanosis, no edema. MUSCULOSKELETAL: Lower extremity strength is symmetrical 5/5. Seated straight leg raising negative. Supine straight leg raising negative. Job's test is [facility] [address] [place] [address] PAIN MANAGEMENT CONSULTATION Name: DEE JOE Room #: REG GERALD Foster#: [id number] Admission: 09/08/19 Attend Phys: Yovani Gonzalez DO Discharge: Date of : 49 Report #: [id number] negative. ASSESSMENT: 1. Chronic lumbar radiculopathy. 2. Failed lumbar spine surgery. 3. Lumbosacral spondylosis with radicular symptoms. 4. Complicated medication management utilizing scheduled medications. 5. Opioid dependency. 6. Chronic intractable pain. PLAN: 1. The patient returns today in followup visit requesting a refill of medications. He feels the epidural injection provided at last visit gave 80% improvement in overall pain despite the elevated pain reported today. He requests refill of medications. He does state that he was able to reduce his reliance on his tramadol by taking ibuprofen. He wishes to make this adjustment today, receiving a higher dose of ibuprofen for baseline pain control, utilizing the hydrocodone only when pain is intolerable. The patient reports no kidney dysfunction and we have to be concerned over at this time, though given his age, we will need to monitor this closely. 2. The patient was provided a prescription of ibuprofen 600 mg dose 1 tab p.o. b.i.d. I have given the patient #60 tablets, releasing today and 4 weeks from today, 2 months' worth of medication. The patient was advised to take the medication as directed. 3. The patient was provided a prescription of diclofenac gel applied topically up to 4 times a day to affected areas. I have given the patient 100 gram tubes with refills. 4. We reviewed the fact that opiate medications are being used to provide analgesia adequate to support activities of daily living, not attempting to achieve a specific pain score on the 0-10 Visual Analog Scale. The current opiate medications are providing sufficient analgesia to allow the patient to participate in activities of daily living. The patient is not exhibiting any aberrant behavior suggestive of drug diversion. The patient is not having any adverse reactions to medications. The patient is not suffering from daytime somnolence or mental acuity changes. The patient is managing opiate-induced constipation with appropriate aovo-rtf-ditdlls agents and dietary considerations. The patient was counseled on concern for caution with operating a motor vehicle while using opiate medications. A physical exam was performed and the patient's functional status was evaluated. All patients with back pain were advised against the bed rest greater than 4 days and were advised to return to normal activities. Pain score assessment was noted and the treatment plan was reviewed with the patient. All current medications, both prescribed and OTC were reviewed and reconciled on the electronic medical record. Tobacco screening was accomplished and smoking cessation was advised when indicated. BMI was noted and diet/exercise [address] [address] PAIN MANAGEMENT CONSULTATION Name: DEE JOE Room #: REG CLI Fsoter#: [id number] Admission: 09/08/19 Attend Phys: Yovani Gonzalez DO Discharge: Date of : 49 Report #: [id number] modification was recommended for all patients following outside normal parameters. I reviewed with the patient today their responsibilities to safeguard prescription medications, reviewed their responsibility to utilize medications only as prescribed by the physician. They are to seek and receive pain medications only from 1 physician group ( [facility]). They are to use 1 pharmacy and keep the clinic informed if they change pharmacies. Their responsibilities include making followup visits in a timely fashion and to avoid abrupt discontinuation of medication usage. Their responsibilities further include bringing their medications (bottles from the pharmacy with residual pills) to the visit for possible confirmation of pill counts and the patient understands it is their responsibility to submit to random drug screens to ensure both that the medications prescribed are present, and that no other controlled substances are present. All prescriptions provided today were generated electronically. 5. The patient was provided prescription of hydrocodone/acetaminophen 7.5/325 one tab p.o. q.6 hours p.r.n. for pain. I have given the patient #120 tablets with 1 refill, 2 months' worth of medication. The patient was advised to take the medication as directed, not to utilize the medication prophylactically. 6. We will see the patient back in followup visit on an as needed basis for possible next in a series of epidural injections. Otherwise, we will see him back at a predetermined time to receive refill of medications. <ELECTRONICALLY SIGNED> By: Yovani Gonzalez DO 09/14/19 1214 1313 0045 Yovani Gonzalez DO /miguel
== END ==
LOC: PAIN 06:56
DX: M47.817 Spondylosis without myelopathy or radiculopathy, lumbosacral region (principal); F11.20 Opioid dependence, uncomplicated; G89.4 Chronic pain syndrome

== ENCOUNTER → 2019-10-13 | Outpatient (CLI) | payer OTHER ==
[~2019-10-13] VITALS: Ht 165.1 cm; Wt 73.0 kg
--- NOTE | ~2019-10-13 | HPC ---
[facility] [place] [address] PAIN MANAGEMENT CONSULTATION Name: DEE JOE Room #: REG CLEnoc M.Favian.#: [id number] Admission: 10/13/19 Attend Phys: Yovani Gonzalez DO Discharge: Date of : 49 Report #: [id number] THIS REPORT FOR: //name// CC: [facility] physician/PCP Yovani Thurston MD DATE OF SERVICE: 10/13/2019 CHIEF COMPLAINT: Chronic low back pain, bilateral lower extremity pain, right greater than left. HISTORY OF PRESENT ILLNESS: As you know, the patient is a 74-year-old male who returns today in followup visit to undergo lumbar epidural injection under fluoroscopic guidance. He is reporting pain today at a level of 9/10 involving low back, right lower extremity more than his left today. He denies new injury, trauma or any changes in medical history since our last visit. He returns today requesting epidural injection under fluoroscopic guidance. ALLERGIES: No known drug allergies. CURRENT MEDICATIONS: Hydrocodone, tramadol, diclofenac gel, citalopram, lisinopril, metformin. SOCIAL HISTORY: The patient denies tobacco, alcohol, IV or illicit drug use. He is unaccompanied today. IMAGING: No new imaging available. PHYSICAL EXAMINATION: VITAL SIGNS: Blood pressure 125/70, pulse 71, respiratory rate 14 and unlabored. The patient is 99% on room air. Height 5 feet 5 inches tall, weight 161 pounds, BMI calculated 26.8. GENERAL: Well-developed, well-nourished, well-hydrated 74-year-old male appearing stated age, pain is rated today 9/10. HEENT: Normocephalic, atraumatic. Pupils equal, round, reactive to light. Speech fluent. EXTREMITIES: Show no clubbing, no cyanosis, and no edema. MUSCULOSKELETAL: Lower extremity strength appears symmetrical 5/5. Muscle bulk and tone equal and symmetrical in comparing right lower extremity to left. Seated straight leg raising negative. Supine straight leg raising mildly positive on the right. Job's test is negative. Modified Gaenslen's positive for axial low back pain. Ankle clonus negative. ASSESSMENT: 1. Symptomatic lumbar radiculopathy. [facility] [address] [place] [address] PAIN MANAGEMENT CONSULTATION Name: DEE JOE Room #: [facility] [id number] Admission: 10/13/19 Attend Phys: Yovani Gonzalez DO Discharge: Date of : 49 Report #: [id number] 2. Failed lumbar spine surgery. 3. Lumbosacral spondylosis with radiculopathy. 4. Complicated medication management. 5. Chronic opioid dependency. 6. Chronic intractable pain. PLAN: 1. The patient returns today in followup visit requesting a lumbar epidural injection under fluoroscopic guidance. He has done very well with previous epidural injections, reporting to our nursing staff today that he received 60% improvement in overall symptoms with previous injection. He states the combination of medications and epidural injections allow him to go about his activities of daily living without significant pain interference. He has been advised risks and benefits of procedure, states understood and wished to proceed. 2. I have taken the liberty of providing the patient with a prescription of Schaller 7.5/325 one tab p.o. q. 6 hours p.r.n. for pain. I have given the patient #120 tablets, no refills. 3. The patient was provided refill prescription of tramadol 50 mg dose 1 tab p.o. q. 6 hours p.r.n. [id number]-[id number] pain, #100, no refills. This is one month worth of medication. 4. The patient will return to see nurse practitioner, Annabella Bateman in 1 month for medication continuation. PROCEDURE NOTE DESCRIPTION OF PROCEDURE: L4-L5 right parasagittal epidural steroid injection under fluoroscopic guidance. After obtaining written consent, the patient was taken back to fluoroscopy suite, placed in prone position with pillow under abdomen to decrease lumbar lordosis. Skin overlying lumbosacral area then prepped and draped in aseptic fashion. The L4-L5 vertebral interspace identified by AP fluoroscopy. Skin and subcutaneous tissue overlying target site of injection anesthetized with 3 mL of 1% lidocaine. A 20-gauge 3-1/2 inch Tuohy needle advanced under fluoroscopic guidance towards the epidural space using a right parasagittal approach. Epidural space identified using loss of resistance to air technique. After negative aspiration for heme or cerebrospinal fluid, 1 mL of Omnipaque injected. Lumbar epidurogram confirmed using both AP and lateral fluoroscopy. After negative aspiration for heme or cerebrospinal fluid, 5 mL of a solution containing 2 mL 40 mg per mL, 80 mg total triamcinolone along with 3 mL of lidocaine 1% injected slowly. Needle retracted snf, flushed with 1 mL of 1% lidocaine, then removed. Sterile bandage placed over injection site. No new motor deficits present in the lower extremities following procedure. [facility] [address] [place] [address] PAIN MANAGEMENT CONSULTATION Name: DEE JOE Room #: REG CLEnoc Hutchison#: [id number] Admission: 10/13/19 Attend Phys: Yovani Gonzalez DO Discharge: Date of : 49 Report #: [id number] The patient tolerated procedure well, carefully escorted to recovery room in stable condition. No apparent complications. After meeting discharge criteria, the patient discharged home. By: [id number] Yovani Gonzalez DO /nt
[2019-10-13 13:15] VITALS: BP 125/70
--- NOTE | 2019-10-13 13:21 | NUR ---
Pain Clinic Assessment: 1. History of Osteoarthritis: BACK History of Rheumatoid Arthritis: Not Applicable 2. Height: 5 ft. 5 in. 165.1 cm. Weight: 161.0 lb. oz. 73.029 kg. Patient's BMI: 26.8 3. Vital Signs: BP: 125/70 Pulse: 71 Resp: 14 Temp: 02 Sat: 99 ECG Mon: 4. Pain Intensity: 9-CURRENTLY 5. Fall Risk: Dizziness: N Needs help standing or walking: N Fallen in the last 3 months: N Fall risk comments: 6. Patient on Blood Thinner: None 7. History of Hypertension: Y 8. Opioid Therapy greater than 6 weeks: Y Opiate Contract Signed: 09/19/17 9. Risk Assessment Tool Provided: LOW RISK 11/29 10. Functional Assessment Tool: 11. Recreational Drug Use: Never Drug Type: Tobacco Use: Smoker,Current Status Unk Tobacco Type: Chewing Tobacco Amount or Packs/day: How Many Years: Alcohol Use: Yes Frequency: Special Occasions Quant: 1-2
== END | disposition home or self-care (01) ==
LOC: PAIN 06:59
DX: M47.27 Other spondylosis with radiculopathy, lumbosacral region (principal); M96.1 Postlaminectomy syndrome, not elsewhere classified; F11.20 Opioid dependence, uncomplicated; G89.29 Other chronic pain; F17.220 Nicotine dependence, chewing tobacco, uncomplicated; Z79.899 Other long term (current) drug therapy; Z98.890 Other specified postprocedural states

== ENCOUNTER → 2019-12-15 | Outpatient (CLI) | payer OTHER ==
[~2019-12-15] VITALS: Ht 165.1 cm; Wt 72.8 kg
[2019-12-15 13:27] VITALS: BP 122/60
--- NOTE | 2019-12-15 13:44 | NUR ---
Pain Clinic Assessment: 1. History of Osteoarthritis: BACK History of Rheumatoid Arthritis: DENIES 2. Height: 5 ft. 5 in. 165.1 cm. Weight: 160.4 lb. oz. 72.757 kg. Patient's BMI: 26.7 3. Vital Signs: BP: 122/60 Pulse: 77 Resp: 14 Temp: 02 Sat: 98 ECG Mon: 4. Pain Intensity: 8 5. Fall Risk: Dizziness: N Needs help standing or walking: N Fallen in the last 3 months: N Fall risk comments: 6. Patient on Blood Thinner: None 7. History of Hypertension: Y 8. Opioid Therapy greater than 6 weeks: Y Opiate Contract Signed: 09/19/17 9. Risk Assessment Tool Provided: LOW RISK 11/29 10. Functional Assessment Tool: 11. Recreational Drug Use: Never Drug Type: Tobacco Use: Smoker,Current Status Unk Tobacco Type: Amount or Packs/day: How Many Years: Alcohol Use: Yes Frequency: Quant:
--- NOTE | 2019-12-21 10:50 | HPC ---
[facility] [place] [address] [place] [address] PAIN MANAGEMENT CONSULTATION Name: DEE JOE Room #: REG GERALD Anastasia.#: [id number] Admission: 12/15/19 Attend Phys: Yovani Gonzalez DO Discharge: Date of : 49 Report #: [id number] THIS REPORT FOR: cc: FAM - No family physician/PCP FAM - No family physician/PCP Yovani Gonzalez DO ~ DATE OF SERVICE: 12/15/2019 REFERRING PHYSICIAN: Dr. Destin Thurston. CHIEF COMPLAINT: Chronic back pain, bilateral lower extremity pain, right greater than left. HISTORY OF PRESENT ILLNESS: A 74-year-old male who has returned today in followup visit to undergo lumbar epidural injection under fluoroscopic guidance to address lumbar radicular symptoms. The patient is placing his pain today at around 8/10. He denies any specific injury or trauma that may have led the symptom reoccurs. He returns today requesting a lumbar epidural injection under fluoroscopic guidance to address recurrent lumbar radiculopathy. He is also requesting a refill of his tramadol as he is out of the medication. He does understand that medications and epidural injections are typically not provided on the same day, but is out of the medication and due to these new restrictions with COVID virus, he is hopeful that he can receive both treatments today. ALLERGIES: No known drug allergies. CURRENT MEDICATIONS: Hydrocodone, tramadol, diclofenac, citalopram, lisinopril, metformin. SOCIAL HISTORY: The patient denies tobacco, alcohol, IV or illicit drug use. He is unaccompanied today. IMAGING: No new imaging available. PHYSICAL EXAMINATION: VITAL SIGNS: Blood pressure 122/60, pulse 77, respiratory rate 14 and unlabored. The patient is 98% on room air. Height 5 feet 5 inches tall, weight 160.4 pounds, BMI calculated 26.7. GENERAL: Well-developed, well-nourished, well-hydrated 74-year-old male appearing stated age, pain is rated today at 8/10. HEENT: Normocephalic, atraumatic. Pupils equal, round and reactive to light. EXTREMITIES: Show no clubbing, no cyanosis and no edema. MUSCULOSKELETAL: Lower extremity strength appears symmetrical 5/5. He is intact to light touch from L1 through S2 dermatomes. Seated straight leg [facility] [address] [place] [address] PAIN MANAGEMENT CONSULTATION Name: DEE JOE Room #: REG GERALD Hutchison#: [id number] Admission: 12/15/19 Attend Phys: Yovani Gonzalez DO Discharge: Date of : 49 Report #: [id number] raising negative. Supine straight leg raising shows minimal changes consistent with neural traction on the right. Job's test negative. Modified Gaenslen's positive for some mild axial back pain. ASSESSMENT: 1. Symptomatic lumbar radiculopathy. 2. Failed lumbar spine surgery. 3. Lumbosacral spondylosis with radiculopathy. 4. Complicated medication management utilizing opioid medications. 5. Chronic intractable pain. PLAN: 1. The patient returns today in followup visit to undergo lumbar epidural injection under fluoroscopic guidance. He has been advised the risks and the benefits of this procedure. These risks include but are not necessarily limited to bleeding, bruising, infection, worsening pain, no relief of pain, also risk of temporary or permanent muscle weakness, temporary or permanent nerve damage, possible paralysis and . The patient states understood and wished to proceed. 2. We have provided the patient with refills of his opioid medications for 1 month. I have given the following prescriptions to the patient today. The patient was advised he will have her return for refill on medications. We have provided these refills specifically due to the recent restrictions around COVID virus. We will return to normal dosing of medications once these restrictions have been lifted. 3. The patient was provided prescription of hydrocodone/acetaminophen 7.5/325 one tab p.o. q. 6 hours p.r.n. for pain, I have given the patient #120, no refills. 4. The patient was provided prescription of tramadol 50 mg dose #100 tablets to be taken for mild to moderate pain. He was given #100 tablets with no refills. 5. The patient was provided refill prescription of diclofenac gel 1% solution. He was given prescriptions sent via [facility] to the local pharmacy with multiple refills. 6. The patient was provided refill prescription of his ibuprofen 600 mg dose 1 tab p.o. b.i.d., #60 tablets, 2 refills. 7. We will see the patient back in followup visit on an as needed basis for possible next in the series of epidural injections. We have made him an appointment back for future medication management discussions. PROCEDURE NOTE DESCRIPTION OF PROCEDURE: L4-L5 right parasagittal epidural steroid injection under fluoroscopic guidance. After obtaining written consent, the patient was taken back to fluoroscopy suite, placed in prone position with pillow under abdomen to decrease lumbar [address] [address] PAIN MANAGEMENT CONSULTATION Name: DEE JOE Room #: REG GERALD Hutchison#: [id number] Admission: 12/15/19 Attend Phys: Yovani Gonzalez DO Discharge: Date of : 49 Report #: [id number] lordosis. Skin overlying lumbosacral area then prepped and draped in aseptic fashion. The L4-L5 intervertebral space was identified by AP fluoroscopy. Skin and subcutaneous tissue overlying target site of injection anesthetized with 3 mL of 1% lidocaine. A 20-gauge 3-1/2 inch Tuohy needle advanced under fluoroscopic guidance towards the epidural space using right parasagittal approach. Epidural space identified using loss of resistance to air technique. After negative aspiration for heme or cerebrospinal fluid, 1 mL of Omnipaque injected. A lumbar epidurogram confirmed using both AP and lateral fluoroscopy. After negative aspiration for heme or cerebrospinal fluid, 5 mL of a solution containing 2 mL 40 mg per mL, 80 mg total triamcinolone along with 3 mL of lidocaine 1% injected slowly. Needle retracted senior living, flushed with 1 mL of 1% lidocaine and removed. Sterile bandage placed over injection site. There were no new motor deficits present in lower extremities following procedure. The patient tolerated procedure well, carefully escorted to recovery room in stable condition. No apparent complications. After meeting discharge criteria, the patient discharged home. <ELECTRONICALLY SIGNED> By: Yovani Gonzalez DO 12/21/19 1050 1423 1448 Yovani Gonzalez DO /nt
== END | disposition home or self-care (01) ==
LOC: PAIN 06:45
DX: M47.27 Other spondylosis with radiculopathy, lumbosacral region (principal); M96.1 Postlaminectomy syndrome, not elsewhere classified; G89.29 Other chronic pain; Z98.890 Other specified postprocedural states; Z79.899 Other long term (current) drug therapy; Z79.891 Long term (current) use of opiate analgesic

== ENCOUNTER → 2020-02-01 | Outpatient (CLI) | payer OTHER ==
[~2020-02-01] VITALS: Ht 165.1 cm; Wt 73.6 kg
[~2020-02-01] MED LIST changes: +HYDROCODON-ACE1 EAC5 PO; +NABUMETONE 500500 M1 PO; +PRILOSEC OTC20 MG PO
--- NOTE | ~2020-02-01 | HPC ---
[facility] [address] [place] [address] PAIN MANAGEMENT CONSULTATION Name: DEE JOE Room #: REG GERALD Foster#: [id number] Admission: 02/01/20 Attend Phys: Yovani Gonzalez DO Discharge: Date of : 49 Report #: [id number] THIS REPORT FOR: cc: [place] - [place] family physician/PCP [place] - [place] family physician/PCP Yovani Gonzalez DO ~ CC: [facility] physician/PCP Yovani Thurston MD DATE OF SERVICE: 02/01/2020 REFERRING PHYSICIAN: Destin Thurston MD CHIEF COMPLAINT: Low back pain, right lower extremity pain and paresthesias. HISTORY OF PRESENT ILLNESS: As you know, the patient is a 74-year-old male who returns today in followup visit to begin the process of authorization to undergo lumbar epidural injection under fluoroscopic guidance and also to receive refill of medications. He feels medications are working beneficially, but wishes an increase in his hydrocodone as the pain he has been experiencing has intensified with increasing activities. He reports good efficacy with the epidural injection provided at last visit, but unfortunately short lived in its improvement. He continues to experience pain in the axial back directly over the facet joints on the right at L4-L5 and L5-S1 consistent with facet arthropathy. He also complains of continued right leg pain consistent with lumbar radiculopathy. He returns for adjustments in medication management and to begin the authorization process for the next in the series of epidural injections and to discuss his axial back pain that has become more problematic. ALLERGIES: No known drug allergies. CURRENT MEDICATIONS: Hydrocodone, tramadol, diclofenac, citalopram, lisinopril, metformin. SOCIAL HISTORY: The patient denies tobacco, alcohol, IV or illicit drug use. He is unaccompanied today. IMAGING: No new imaging available. PHYSICAL EXAMINATION: VITAL SIGNS: Blood pressure 107/60, pulse 73, respiratory rate 16 and unlabored, the patient is 99% on room air. Height 5 feet 5 inches tall, weight is 162.2 pounds and BMI calculated 27.0. GENERAL: Well-developed, well-nourished, well-hydrated 74-year-old male appearing stated age, pain is rated today at around 8/10. [address] [address] PAIN MANAGEMENT CONSULTATION Name: DEE JOE [id number] Admission: 02/01/20 Attend Phys: Yovani Gonzalez DO Discharge: Date of : 49 Report #: [id number] HEENT: Normocephalic, atraumatic. Pupils equal, round, reactive to light. Speech fluent. EXTREMITIES: Show no clubbing, no cyanosis, and no edema. MUSCULOSKELETAL: Seated straight leg raising negative. Supine straight leg raising is mildly positive on the right. Job's test is negative. Modified Gaenslen's positive for right axial back pain. Lumbar provocation testing including extension, rotation, and lateral flexion to the right causes intensification of pain. Ankle clonus negative. Babinski is negative. ASSESSMENT: 1. Symptomatic lumbar radiculopathy. 2. Failed lumbar spine surgery. 3. Lumbosacral spondylosis with radiculopathy. 4. Facet arthropathy of the lumbar spine. 5. Opioid dependency. 6. Complicated medication management utilizing scheduled medications. 7. Chronic intractable pain. PLAN: 1. The patient returns today in followup visit requesting an adjustment in medications to address increasing back pain. The patient states that with increasing activities his pain has intensified. He is unable to walk or go about activities of daily living due to this increase in symptoms. He has been stabilized on dose of hydrocodone for an extended period of time and is likely showing some tolerance to the medication. I have agreed to increase the medication to the 10 mg dose at the top hydrocodone dose available and he can take this as 4 times a day for pain control. The patient is agreeable. We reviewed the fact that opiate medications are being used to provide analgesia adequate to support activities of daily living, not attempting to achieve a specific pain score on the 0-10 Visual Analog Scale. The current opiate medications are providing sufficient analgesia to allow the patient to participate in activities of daily living. The patient is not exhibiting any aberrant behavior suggestive of drug diversion. The patient is not having any adverse reactions to medications. The patient is not suffering from daytime somnolence or mental acuity changes. The patient is managing opiate-induced constipation with appropriate [id number] agents and dietary considerations. The patient was counseled on concern for caution with operating a motor vehicle while using opiate medications. A physical exam was performed and the patient's functional status was evaluated. All patients with back pain were advised against the bed rest greater than 4 days and were advised to return to normal activities. Pain score assessment was noted and the treatment plan was reviewed with the patient. All current medications, both prescribed and OTC were reviewed and reconciled on the electronic medical record. Tobacco screening was accomplished and smoking [address] [address] PAIN MANAGEMENT CONSULTATION Name: DEE JOE Room #: REG GERALD Hutchison#: [id number] Admission: 02/01/20 Attend Phys: Yovani Gonzalez DO Discharge: Date of : 47 Report #: [id number] cessation was advised when indicated. BMI was noted and diet/exercise modification was recommended for all patients following outside normal parameters. I reviewed with the patient today their responsibilities to safeguard prescription medications, reviewed their responsibility to utilize medications only as prescribed by the physician. They are to seek and receive pain medications only from 1 physician group ( [facility]). They are to use 1 pharmacy and keep the clinic informed if they change pharmacies. Their responsibilities include making followup visits in a timely fashion and to avoid abrupt discontinuation of medication usage. Their responsibilities further include bringing their medications (bottles from the pharmacy with residual pills) to the visit for possible confirmation of pill counts and the patient understands it is their responsibility to submit to random drug screens to ensure both that the medications prescribed are present, and that no other controlled substances are present. All prescriptions provided today were generated electronically. 2. The patient was provided a prescription of hydrocodone 10/325 one tab p.o. q. 8 hours p.r.n. for pain. I have given the patient #120, releasing today, 4 weeks from today, 2 months' worth of medication. 3. The patient will continue the tramadol 50 mg dose 1 tab p.o. t.i.d. p.r.n. mild to moderate pain. I have given the patient #90 tablets, releasing today and 4 weeks from today, 2 months' worth of medication. The patient was advised to take this medication only when pain is mild to moderate. He is not to use both the hydrocodone and tramadol in conjunction. 4. The patient was provided a refill prescription of his diclofenac gel apply topically up to 4 times a day. I have given him 3 tubes with 1 refill, 2 months' worth of medication. 5. The patient and I did discuss the possibility of having him undergo the next in the series of epidural injections. He does wish to begin the authorization process to undergo this procedure. We will begin this authorization process immediately, contact the patient once this is completed and have him return for the next in the series of lumbar epidural injections. 6. The patient is also suffering what appears to be facet arthropathy pain in the lumbar spine. It is not unusual that an individual of 74 years of age with failed lumbar spine surgery would have 2 different generators, one being the above lumbar radiculopathy, but also facet arthropathy of the lumbar spine consistent with the distribution of symptoms he is experiencing on the right side. It does appear to be affecting the L4-L5 and L5-S1 facet joints on the right, exacerbated with activities. Intra-articular facet injections, medial branch nerve blocks and radiofrequency lesioning would be the recommended treatment course. The patient is agreeable with looking towards these injections if his symptoms do not improve with the epidural injections and changes in medications. 7. The patient will discontinue the use of his ibuprofen, [place] [address] PAIN MANAGEMENT CONSULTATION Name: TATYANADEE Room #: REG CLI Foster#: [id number] Admission: 02/01/20 Attend Phys: Yovani Gonzalez DO Discharge: Date of : 49 Report #: [id number] using nabumetone 500 mg dose 1 tab p.o. t.i.d. This is rotation of the nonsteroidal anti-inflammatories in hopes of improving pain. I have given the patient #90 tablets and 1 refill. The patient will watch for dyspepsia, worsening of blood pressure, lower extremity edema and side effects. If he notes any side effects, discontinue immediately. 8. We will see the patient back in followup visit once we have the authorization for the patient to undergo next in the series of epidural injections. By: [id number] Yovani Gonzalez DO /nt
[2020-02-01 10:34] VITALS: BP 107/60
--- NOTE | 2020-02-01 10:51 | NUR ---
Pain Clinic Assessment: 1. History of Osteoarthritis: BACK History of Rheumatoid Arthritis: DENIES 2. Height: 5 ft. 5 in. 165.1 cm. Weight: 162.2 lb. oz. 73.573 kg. Patient's BMI: 27.0 3. Vital Signs: BP: 107/60 Pulse: 73 Resp: 16 Temp: 02 Sat: 99 ECG Mon: 4. Pain Intensity: 8 5. Fall Risk: Dizziness: N Needs help standing or walking: N Fallen in the last 3 months: N Fall risk comments: 6. Patient on Blood Thinner: None 7. History of Hypertension: Y 8. Opioid Therapy greater than 6 weeks: Y Opiate Contract Signed: 09/19/17 9. Risk Assessment Tool Provided: LOW RISK 11/29 10. Functional Assessment Tool: 11. Recreational Drug Use: Never Drug Type: Tobacco Use: Smoker,Current Status Unk Tobacco Type: Chewing Tobacco Amount or Packs/day: How Many Years: 50 Alcohol Use: Yes Frequency: Monthly Quant: 10
== END ==
LOC: PAIN 06:50
DX: M47.27 Other spondylosis with radiculopathy, lumbosacral region (principal); M79.604 Pain in right leg; R20.2 Paresthesia of skin; G89.29 Other chronic pain; M12.88 Other specific arthropathies, not elsewhere classified, other specified site; Z98.890 Other specified postprocedural states; Z88.1 Allergy status to other antibiotic agents; Z88.5 Allergy status to narcotic agent; Z88.8 Allergy status to other drugs, medicaments and biological substances; Z79.899 Other long term (current) drug therapy

== ENCOUNTER → 2020-02-16 | Outpatient (CLI) | payer OTHER ==
[~2020-02-16] VITALS: Ht 165.1 cm; Wt 72.8 kg
--- NOTE | ~2020-02-16 | HPC ---
[facility] [address] [place] [address] PAIN MANAGEMENT CONSULTATION Name: DEE JOE Room #: REG GERALD [facility].#: [id number] Admission: 02/16/20 Attend Phys: Yovani Gonzalez DO Discharge: Date of : 47 Report #: [id number] THIS REPORT FOR: cc: [place] - No family physician/PCP FAM - No family physician/PCP Yovani Gonzalez DO ~ CC: [facility] physician/PCP Yovani Thurston MD DATE OF SERVICE: 02/16/2020 REFERRING PHYSICIAN: Destin Thurston MD CHIEF COMPLAINT: Low back pain, right lower extremity pain with paresthesias. HISTORY OF PRESENT ILLNESS: As you know, the patient is a 74-year-old male who has returned today in followup visit to undergo next in the series of lumbar epidural injections under fluoroscopic guidance to address lumbar radicular symptoms involving low back pain radiating down the right leg. He is placing his current pain score at 8/10. He denies new injury or trauma that may have led to symptom reoccurrence. He reports epidural injections do provide good benefit allowing him to return to the majority of his activities of daily living without significant pain interference. He reports previous epidural injection gave approximately 70% improvement in overall pain lasting until just recently. He returns today in followup visit to undergo next in the series of epidural injections. ALLERGIES: No known drug allergies. CURRENT MEDICATIONS: Hydrocodone, tramadol, diclofenac, citalopram, lisinopril, metformin. SOCIAL HISTORY: The patient denies tobacco, alcohol, IV or illicit drug use. He is unaccompanied today. IMAGING: No new imaging available. PHYSICAL EXAMINATION: VITAL SIGNS: Blood pressure 108/52, pulse 70, respiratory rate 16 and unlabored. The patient is 100% on room air. Height 5 feet 5 inches tall, weight 160.6 pounds, BMI calculated 26.7. GENERAL: Well-developed, well-nourished, well-hydrated 74-year-old male appearing stated age. Pain is rated today at 8/10. HEENT: Normocephalic, atraumatic. Pupils equal, round, reactive to light. Speech is fluent. [facility] [address] [place] [address] PAIN MANAGEMENT CONSULTATION Name: DEE JOE Room #: REG [facility]#: [id number] Admission: 02/16/20 Attend Phys: Yovani Gonzalez DO Discharge: Date of : 49 Report #: [id number] EXTREMITIES: Show no clubbing, no cyanosis, and no edema. MUSCULOSKELETAL: Lower extremity strength equal and symmetrical 5/5. Muscle bulk and tone equal and symmetrical in comparing left lower extremity to right. Seated straight leg raising negative. Supine straight leg raising mildly positive on the right at about 70-degree angle. Ankle clonus negative. Babinski is negative. ASSESSMENT: 1. Symptomatic lumbar radiculopathy. 2. Failed lumbar spine surgery. 3. Lumbosacral spondylosis with radiculopathy. 4. Facet arthropathy of the lumbar spine. 5. Opioid dependency. 6. Complicated medication management utilizing scheduled medications. 7. Chronic intractable pain. PLAN: 1. The patient returns today in followup visit requesting to undergo next in the series of lumbar epidural injections under fluoroscopic guidance. The patient reports about a 70% improvement in overall pain with the epidural injections, lasting for up to a couple of months. He returns today stating a pain score of 8/10 requesting to undergo next in the series of epidural injections. We have received authorization from his third republican payer to undergo the procedure today. The patient and I did discuss the risks and benefits of a lumbar epidural injection. These risks include but are not necessarily limited to bleeding, bruising, infection, worsening of pain, no relief of pain, temporary or permanent muscle weakness, temporary or permanent nerve damage, possible paralysis and . The patient states understood and wished to proceed. 2. No medication changes made at today's visit. The patient will continue current medical therapy as previously prescribed. 3. We will see the patient back in followup visit on an as needed basis for possible next in the series of epidural injections. PROCEDURE NOTE: Lumbar epidural steroid injection under fluoroscopic guidance. After obtaining written consent, the patient was taken back to fluoroscopy suite, placed in prone position with pillow under abdomen to decrease lumbar lordosis. Skin overlying lumbosacral area then prepped and draped in aseptic fashion. Lumbar intervertebral spaces were identified by AP fluoroscopy. Skin and subcutaneous tissue overlying target site injection anesthetized with 3 mL of 1% lidocaine. A 20-gauge 3-1/2 inch Tuohy needle advanced under fluoroscopic guidance towards the epidural space using a right paramedian approach. Epidural space identified using loss of resistance to air technique. After negative aspiration for heme [facility] [address] [place] [address] PAIN MANAGEMENT CONSULTATION Name: DEE JOE Room #: REG GERALD Hutchison#: [id number] Admission: 02/16/20 Attend Phys: Yovani Gonazlez DO Discharge: Date of : 49 Report #: [id number] or cerebrospinal fluid, 1 mL of Omnipaque injected. Lumbar epidurogram confirmed using both AP and lateral fluoroscopy. After negative aspiration for heme or cerebrospinal fluid, 5 mL of a solution containing 2 mL 40 mg per mL, 80 mg total triamcinolone along with 3 mL of lidocaine 1% injected slowly. Needle then retracted correction, flushed with 1 mL of 1% lidocaine, then removed. Sterile bandage placed over injection site. There were no new motor deficits present in the lower extremities following procedure. The patient tolerated procedure well, carefully escorted to recovery room in stable condition. No apparent complications. After meeting discharge criteria, the patient discharged home. By: [id number] Yovani Gonzalez DO /nt
[2020-02-16 12:42] VITALS: BP 108/52
--- NOTE | 2020-02-16 12:56 | NUR ---
Pain Clinic Assessment: 1. History of Osteoarthritis: BACK History of Rheumatoid Arthritis: DENIES 2. Height: 5 ft. 5 in. 165.1 cm. Weight: 160.6 lb. oz. 72.848 kg. Patient's BMI: 26.7 3. Vital Signs: BP: 108/52 Pulse: 70 Resp: 16 Temp: 02 Sat: 100 ECG Mon: 4. Pain Intensity: 8 5. Fall Risk: Dizziness: N Needs help standing or walking: N Fallen in the last 3 months: N Fall risk comments: 6. Patient on Blood Thinner: None 7. History of Hypertension: Y 8. Opioid Therapy greater than 6 weeks: Y Opiate Contract Signed: 09/19/17 9. Risk Assessment Tool Provided: LOW RISK 11/29 10. Functional Assessment Tool: 11. Recreational Drug Use: Never Drug Type: Tobacco Use: Smoker,Current Status Unk Tobacco Type: Amount or Packs/day: How Many Years: Alcohol Use: Yes Frequency: Quant:
== END | disposition home or self-care (01) ==
LOC: PAIN 07:05
DX: M47.27 Other spondylosis with radiculopathy, lumbosacral region (principal); G89.29 Other chronic pain; M96.1 Postlaminectomy syndrome, not elsewhere classified; M47.26 Other spondylosis with radiculopathy, lumbar region; F11.20 Opioid dependence, uncomplicated; Z98.890 Other specified postprocedural states; Z79.899 Other long term (current) drug therapy; Z87.891 Personal history of nicotine dependence

== ENCOUNTER → 2020-04-04 | Outpatient (CLI) | payer OTHER ==
[~2020-04-04] VITALS: Ht 165.1 cm; Wt 73.3 kg
--- NOTE | ~2020-04-04 | HPC ---
[facility] [address] [place] [address] PAIN MANAGEMENT CONSULTATION Name: DEE JOE Room #: REG GERALD [facility].#: [id number] Admission: 04/04/20 Attend Phys: Yovani Gonzalez DO Discharge: Date of : 47 Report #: [id number] THIS REPORT FOR: cc: FAM - No family physician/PCP FAM - No family physician/PCP Yovani Gonzalez DO ~ CC: [facility] physician/PCP Yovani Thurston MD DATE OF SERVICE: 04/04/2020 CHIEF COMPLAINT: Axial back pain. HISTORY OF PRESENT ILLNESS: As you know, the patient is a pleasant 74-year-old male who has returned today in followup visit with continued axial back pain, mainly on the right side, located over the lumbar area. As you are aware, the patient has been treated with lumbar epidural injections under fluoroscopic guidance to address lumbar radiculopathy, but he is now experiencing what appears to be facet generated pain involving mainly the right lower back and with radiation laterally. He is placing his pain score at around 9/10. Pain is exacerbated with walking long distances. There is no radiation of symptoms down the right leg. He returns today to discuss treatment options for what appears to be facet arthropathy pain. ALLERGIES: No known drug allergies. CURRENT MEDICATIONS: Hydrocodone, tramadol, diclofenac, citalopram, lisinopril, metformin. SOCIAL HISTORY: The patient denies tobacco, alcohol, IV or illicit drug use. He is unaccompanied today. IMAGING: No new imaging available. PHYSICAL EXAMINATION: VITAL SIGNS: Blood pressure 109/58, pulse 81, respiratory rate 18 and unlabored. The patient is 97% on room air. Height 5 feet 5 inches tall, weighs 161.6 pounds, BMI calculated 26.9. GENERAL: Well-developed, well-nourished, well-hydrated 74-year-old male appearing stated age. Pain is rated today 9/10. HEENT: Normocephalic, atraumatic. Pupils equal, round and reactive. Speech fluent. EXTREMITIES: Show no clubbing, no cyanosis, and no edema. MUSCULOSKELETAL: Lower extremity strength appears equal and symmetrical today 5/5. Muscle bulk and tone equal and symmetrical when comparing left lower [address] [address] PAIN MANAGEMENT CONSULTATION Name: DEE JOE Room #: REG [facility].#: [id number] Admission: 04/04/20 Attend Phys: Yovani Gonzalez DO Discharge: Date of : 49 Report #: [id number] extremity to right. Seated straight leg raising negative. Supine straight leg raising remains mildly positive on the right. Ankle clonus negative. Babinski is negative. There is palpatory tenderness over the paraspinal musculature of lower lumbar spine consistent with facet arthropathy, mainly on the right. Lumbar provocation testing including extension, rotation, lateral flexion to the right, all intensify axial back pain without radiation of symptoms. Modified Gaenslen's positive for axial low back pain. ASSESSMENT: 1. Lumbosacral spondylosis without current radicular symptoms. 2. Facet arthropathy of the lumbar spine. 3. Chronic lumbar radiculopathy. 4. Failed lumbar spine surgery. 5. Opioid dependency. 6. Complicated medication management utilizing scheduled medications. 7. Chronic intractable pain. PLAN: 1. The patient returns today in followup visit with what appears to be facet arthropathy pain. He is placing pain at a level of 9/10, able to localize the pain to the lower right back, correlating to the L4-L5, L5-S1 facet joints. There is radiation of symptoms horizontally in a nondermatomal distribution consistent with facet arthropathy pain. Pain provocation testing including extension, rotation and lateral flexion all intensify axial back pain without radiation of symptoms, again consistent with facet arthropathy. We discussed with the patient the treatment options available for facet arthropathy. The following was discussed with the patient today: We discussed physical therapy, stretching exercises, and core strengthening as a treatment option. We discussed adjustments in medication management, adding nonsteroidal anti-inflammatory to address facet arthropathy symptoms. We discussed medial branch nerve blocks, radiofrequency lesioning as a treatment course for more aggressive and more prolonged pain improvement and then we discussed surgical options. After reviewing risks and benefits of all proposed treatment options, the patient wishes to move forward with medial branch nerve blocks and radiofrequency lesioning. 2. The patient was advised that due to third democrat payer restrictions, authorization would have to be obtained before we could perform medial branch nerve blocks to address facet arthropathy pain. If the initial medial branch blocks are successful, then we would have to obtain authorization to undergo a second in the series. If again these are successful in alleviating his symptoms for a prescribed period of time then move forward with radiofrequency lesioning, all of which will require authorization. We will begin this authorization process immediately and contact the patient once it has been completed. 3. The patient has requested refill of his hydrocodone and tramadol as well as his nabumetone and Voltaren gel. We have provided prescriptions of all these medications as follows: We have provided a prescription of hydrocodone [address] [address] PAIN MANAGEMENT CONSULTATION Name: DEE JOE Room #: REG CLI Foster#: [id number] Admission: 04/04/20 Attend Phys: Yovani Gonzalez DO Discharge: Date of : 49 Report #: [id number] one tab p.o. q.6 hours p.r.n. for pain, #120 releasing today and 4 weeks from today, 2 months' worth of medication. Prescription sent via e-scribed to local pharmacy. The patient was provided a refill prescription of his tramadol 50 mg dose 1 tab p.o. t.i.d., #90 tablets with 1 refill, 2 months' worth of medication. Prescription sent via e-scribed to local pharmacy. 4. The patient was provided prescription of nabumetone 500 mg dose 1 tab p.o. t.i.d., #90 with 1 refill, 2 months' worth of medication. This was sent via sent via e-scribed to local pharmacy. 5. The patient was provided prescription of Voltaren gel 3% solution to apply as needed, 3 tubes, 1-2 months' worth of medication. This was sent via e-scribed to local pharmacy. 6. We will see the patient back in followup visit once we have achieved authorization to undergo medial branch nerve blocks of the lumbar spine with possible progression towards radiofrequency lesioning. By: [id number] Yovani Gonzalez, DO /nt
[2020-04-04 13:27] VITALS: BP 109/58
--- NOTE | 2020-04-04 13:31 | NUR ---
Pain Clinic Assessment: 1. History of Osteoarthritis: BACK History of Rheumatoid Arthritis: DENIES 2. Height: 5 ft. 5 in. 165.1 cm. Weight: 161.6 lb. oz. 73.301 kg. Patient's BMI: 26.9 3. Vital Signs: BP: 109/58 Pulse: 81 Resp: 18 Temp: 02 Sat: 97 ECG Mon: 4. Pain Intensity: 9 5. Fall Risk: Dizziness: N Needs help standing or walking: N Fallen in the last 3 months: N Fall risk comments: 6. Patient on Blood Thinner: None 7. History of Hypertension: Y 8. Opioid Therapy greater than 6 weeks: Y Opiate Contract Signed: 09/19/17 9. Risk Assessment Tool Provided: LOW RISK 11/29 10. Functional Assessment Tool: 11. Recreational Drug Use: Never Drug Type: Tobacco Use: Smoker,Current Status Unk Tobacco Type: Amount or Packs/day: How Many Years: Alcohol Use: Yes Frequency: Quant:
== END ==
LOC: PAIN 06:58
PROVIDERS: ATTEND Anesthesiology Pain Medicine
DX: M47.27 Other spondylosis with radiculopathy, lumbosacral region (principal); M96.1 Postlaminectomy syndrome, not elsewhere classified; G89.29 Other chronic pain; F11.20 Opioid dependence, uncomplicated; Z79.899 Other long term (current) drug therapy

== ENCOUNTER → 2020-04-18 | Outpatient (CLI) | payer OTHER ==
[~2020-04-18] VITALS: Ht 165.1 cm; Wt 74.8 kg
--- NOTE | ~2020-04-18 | HPC ---
[facility] [address] [place] [address] PAIN MANAGEMENT CONSULTATION Name: DEE JOE Room #: REG CLEnoc M.Favian.#: [id number] Admission: 04/18/20 Attend Phys: Yovani Gonzalez DO Discharge: Date of : 49 Report #: [id number] THIS REPORT FOR: cc: FAM - No family physician/PCP FAM - No family physician/PCP Yovani Gonzalez DO ~ CC: [facility] physician/PCP Yovani Tuhrston MD DATE OF SERVICE: 04/18/2020 REFERRING PHYSICIAN: Destin Thurston MD CHIEF COMPLAINT: Axial back pain. HISTORY OF PRESENT ILLNESS: As you know, the patient is a 74-year-old male who was last seen in consultation, diagnosed with progressively worsening lumbosacral spondylosis without changes in radicular symptoms. He was experiencing mainly axial back pain. We established today's appointment for the patient to undergo bilateral L3, L4, L5 medial branch nerve blocks in hopes of improving pain. He returns today in followup visit stating a pain level of around 9/10. He returns to undergo the injection in hopes of improving pain. We have plans if this is successful to move forward with radiofrequency lesioning after undergoing a second series of medial branch blocks. He returns today for the first in the series. He denies new injury, trauma or any changes in medical history since our visit of 04/04/2020. ALLERGIES: No known drug allergies. CURRENT MEDICATIONS: Hydrocodone, tramadol, diclofenac, citalopram, lisinopril, metformin. SOCIAL HISTORY: The patient denies tobacco, alcohol, IV or illicit drug use. He is unaccompanied today. IMAGING: No new imaging available. PHYSICAL EXAMINATION: VITAL SIGNS: Blood pressure 122/56, pulse 66, respiratory rate 14 and unlabored. The patient is 100% on room air. Height 5 feet 5 inches tall, weight 164.8 pounds, BMI calculated 27.4. GENERAL: Well-developed, well-nourished, well-hydrated 74-year-old male appearing stated age, in no acute distress. Pain is rated at 9/10. HEENT: Normocephalic, atraumatic. Pupils equal, round and reactive. Speech is fluent. [facility] [address] [place] [address] PAIN MANAGEMENT CONSULTATION Name: DEE JOE Room #: REG [facility]..#: [id number] Admission: 04/18/20 Attend Phys: Yovani Gonzalez DO Discharge: Date of : 49 Report #: [id number] EXTREMITIES: Show no clubbing, no cyanosis, no edema. MUSCULOSKELETAL: Lower extremity strength equal and symmetrical 5/5, intact to light touch from L1 through S2 dermatomes. Seated straight leg raising negative. Supine straight leg raising remains positive on the right. Job's test is negative. Paraspinal musculature tenderness to palpation noted over the facet joints of the lumbar spine. Lumbar provocation testing including extension, rotation, lateral flexion all intensify axial back pain. ASSESSMENT: 1. Lumbosacral spondylosis without current radicular symptoms. 2. Facet arthropathy of the lumbar spine. 3. Chronic lumbar radiculopathy. 4. Failed lumbar spine surgery. 5. Opioid dependency. 6. Complicated medication management utilizing scheduled medications. 7. Chronic intractable pain. PLAN: 1. The patient returns today in followup visit having received authorization to undergo bilateral L3, L4, L5 medial branch nerve blocks to determine if his symptoms will improve with these type of injections. The plan would be to move forward with radiofrequency lesioning assuming the efficacy of this is noted. He returns today to undergo the blocks today to address axial back pain. He is placing pain at 9/10. 2. The patient was advised of the risks and benefits of bilateral medial branch blocks. These risks include but are not necessarily limited to bleeding, bruising, infection, worsening of pain, no relief of pain, also risk of temporary or permanent muscle weakness, temporary or permanent nerve damage, possible paralysis and . The patient states understood and wished to proceed. 3. No medication management changes made at today's visit. The patient will continue current medical therapy as previously prescribed. 4. We will see the patient back in followup visit for second in the series of medial branch blocks assuming good and prolonged efficacy with the initial blocks for a prescribed period of time. He will contact our clinic once the effects of the medial branch blocks disappear to advice of the timeframe and the fact that he may have received. PROCEDURE NOTE: DESCRIPTION OF PROCEDURE: Bilateral L3, L4, L5 medial branch nerve blocks under fluoroscopic guidance. This is the first of 2 diagnostic medial branch blocks on the right and left sides that the patient is undergoing. After obtaining written consent, the patient was taken back to the fluoroscopy [address] [address] PAIN MANAGEMENT CONSULTATION Name: DEE JOE Room #: REG GERALD Hutchison#: [id number] Admission: 04/18/20 Attend Phys: Yovani ZebLalit Gonzalez DO Discharge: Date of : 49 Report #: [id number] and placed in a prone position on the fluoroscopy table with a pillow under the abdomen to decrease the lumbar lordosis. The skin overlying the lumbosacral area was prepped and draped in an aseptic fashion. The L4 transverse process corresponding the L3 medial branch nerve and L5 transverse process corresponding the L4 medial branch nerve on the right and left sides were visualized under AP fluoroscopy. The skin and subcutaneous tissue overlying the target sites of injection right and left sides were anesthetized using 2 mL of 1% lidocaine. A #22 gauge 3-1/2 inch spinal needle with a bent tip was advanced under fluoroscopic guidance using a superior to inferior and lateral to medial approach to the dorsal, superior and medial aspect of the base of the transverse processes. The needles were then directed ventral, medial and caudad to reach the target locations. An oblique view facilitated needle placement with properly positioned needless in the middle of the "eye" of the Marty dog for the medial branch blocks. At each site the needles rested on periosteum. After negative aspiration for heme or CSF, 0 mL of Omnipaque dye was injected at each site under live fluoroscopy, demonstrating absence of vascular uptake. After negative aspiration for heme or CSF, 0.5 mL of bupivacaine 0.5% was slowly injected at each site to avoid forcing the solution away from the target points. The needles were then removed. The L5 dorsal ramus block on the right and left sides was performed using a slightly oblique approach under fluoroscopic guidance, placing the needle within the groove between the sacral site and the superior articular process of S1. The needle rested on periosteum. After negative aspiration for heme or CSF, 0 mL of Omnipaque dye was injected at under live fluoroscopy, demonstrating absence of vascular uptake. After negative aspiration for heme or CSF, 0.5 mL of bupivacaine 0.5% was slowly injected to avoid forcing the solution away from the target point. The needle was then removed. Sterile bandages were placed over the injection site. There were no apparent complications. The patient tolerated the procedure well and was carefully escorted to the recovery room in stable condition. The VAS was 9/10 before the procedure and 0/10, 10 minutes after the procedure. After meeting discharge criteria, the patient was discharged home. By: 1500 [id number] Yovani Gonzalez DO /nt
[2020-04-18 13:12] VITALS: BP 122/56
--- NOTE | 2020-04-18 13:32 | NUR ---
Pain Clinic Assessment: 1. History of Osteoarthritis: BACK History of Rheumatoid Arthritis: DENIES 2. Height: 5 ft. 5 in. 165.1 cm. Weight: 164.8 lb. oz. 74.753 kg. Patient's BMI: 27.4 3. Vital Signs: BP: 122/56 Pulse: 66 Resp: 14 Temp: 02 Sat: 100 ECG Mon: 4. Pain Intensity: 9 WITHOUT MEDS 5. Fall Risk: Dizziness: N Needs help standing or walking: N Fallen in the last 3 months: N Fall risk comments: 6. Patient on Blood Thinner: None 7. History of Hypertension: Y 8. Opioid Therapy greater than 6 weeks: Y Opiate Contract Signed: 09/19/17 9. Risk Assessment Tool Provided: LOW RISK 11/29 10. Functional Assessment Tool: 11. Recreational Drug Use: Never Drug Type: Tobacco Use: Smoker,Current Status Unk Tobacco Type: Cigarettes Amount or Packs/day: How Many Years: Alcohol Use: Yes Frequency: Quant:
== END | disposition home or self-care (01) ==
LOC: PAIN 07:01
PROVIDERS: ATTEND Anesthesiology Pain Medicine
DX: M47.817 Spondylosis without myelopathy or radiculopathy, lumbosacral region (principal); M47.816 Spondylosis without myelopathy or radiculopathy, lumbar region; G89.29 Other chronic pain; M96.1 Postlaminectomy syndrome, not elsewhere classified; M54.16 Radiculopathy, lumbar region; F11.20 Opioid dependence, uncomplicated; F17.210 Nicotine dependence, cigarettes, uncomplicated; Z98.890 Other specified postprocedural states; Z79.899 Other long term (current) drug therapy

== ENCOUNTER → 2020-05-09 | Outpatient (CLI) | payer OTHER ==
[~2020-05-09] VITALS: Ht 165.1 cm; Wt 72.9 kg
[2020-05-09 13:07] VITALS: BP 126/57
--- NOTE | 2020-05-09 13:22 | NUR ---
Pain Clinic Assessment: 1. History of Osteoarthritis: BACK History of Rheumatoid Arthritis: DENIES 2. Height: 5 ft. 5 in. 165.1 cm. Weight: 160.8 lb. oz. 72.938 kg. Patient's BMI: 26.8 3. Vital Signs: BP: 126/57 Pulse: 77 Resp: 16 Temp: 02 Sat: 98 ECG Mon: 4. Pain Intensity: 9 WITHOUT MEDS 5. Fall Risk: Dizziness: N Needs help standing or walking: N Fallen in the last 3 months: N Fall risk comments: 6. Patient on Blood Thinner: None 7. History of Hypertension: Y 8. Opioid Therapy greater than 6 weeks: Y Opiate Contract Signed: 09/19/17 9. Risk Assessment Tool Provided: LOW RISK 11/29 10. Functional Assessment Tool: 11. Recreational Drug Use: Never Drug Type: Tobacco Use: Smoker,Current Status Unk Tobacco Type: Cigarettes Amount or Packs/day: 1 How Many Years: 50 Alcohol Use: Yes Frequency: Weekly Quant: 10
--- NOTE | 2020-05-10 11:01 | HPC ---
[facility] [place] [address] PAIN MANAGEMENT CONSULTATION Name: DEE JOE Room #: REG GERALD LyLalitFavianLalit#: [id number] Admission: 05/09/20 Attend Phys: Yovani Gonzalez DO Discharge: Date of : 49 Report #: [id number] THIS REPORT FOR: cc: FAM - No family physician/PCP FAM - No family physician/PCP Yovani Gonzalez DO ~ DATE OF SERVICE: 05/09/2020 REFERRING PHYSICIAN: Destin Thurston MD CHIEF COMPLAINT: Axial back pain. HISTORY OF PRESENT ILLNESS: As you know, the patient is a 74-year-old male diagnosed with progressively worsening lumbosacral spondylosis without current radicular symptoms. He has undergone treatment to address the medial branch nerves at the previous appointment. He received 80% improvement in overall pain with the medial branch blocks, returning today in followup visit for the second in the series of medial branch blocks. The patient was advised if these blocks are also successful in alleviating symptoms of greater than 80%, then looking towards radiofrequency lesioning would be an appropriate treatment for his facet arthropathy pain. The patient returns today to undergo the procedure, reporting a pain score of 9/10. ALLERGIES: No known drug allergies. CURRENT MEDICATIONS: Hydrocodone, tramadol, diclofenac, citalopram, lisinopril and metformin. SOCIAL HISTORY: The patient denies tobacco, alcohol, IV or illicit drug use. He is unaccompanied today. IMAGING: No new imaging available. PHYSICAL EXAMINATION: VITAL SIGNS: Blood pressure 126/57, pulse is 77, respiratory rate 16 and unlabored. The patient is 98% on room air. Height 5 feet 5 inches tall, weight 160.8 pounds, BMI calculated 26.8. GENERAL: Well-developed, well-nourished, well-hydrated 74-year-old male, appearing stated age, pain is rated today 9/10. HEENT: Normocephalic, atraumatic. Pupils equal, round and reactive. EXTREMITIES: Show no clubbing, no cyanosis, no edema. MUSCULOSKELETAL: The patient shows equal and symmetrical lower extremity strength 5/5, intact to light touch from L1 through S2 dermatomes. Seated straight leg raising negative. Supine straight leg raising remains positive on the right at approximately 65-70 degree angle. Job's test is negative. [address] [address] PAIN MANAGEMENT CONSULTATION Name: DEE JOE Room #: REG GERALD Foster#: [id number] Admission: 05/09/20 Attend Phys: Yovani Gonzalez DO Discharge: Date of : 49 Report #: [id number] Modified Gaenslen's positive for some axial low back pain over the facet joints of the lumbar spine. Lumbar provocation testing including extension, rotation and lateral flexion, all intensify axial back pain. ASSESSMENT: 1. Lumbosacral spondylosis without current radicular symptoms. 2. Facet arthropathy of the lumbar spine. 3. Chronic lumbar radiculopathy. 4. Failed lumbar spine surgery. 5. Opioid dependency. 6. Complicated medication management utilizing scheduled medications. 7. Chronic intractable pain. PLAN: 1. The patient returns today in followup visit having noted 80% improvement in overall pain with the medial branch block injections provided at last visit. He reports the pain was improved for an extended period of time, but ultimately returned to his normal baseline level consistent with the medial branch block. He returns today to undergo next in the series of blocks. He is placing current pain score 9/10. I did advise the patient if this block is successful at alleviating his symptoms again, greater than 80%, he would be a candidate for radiofrequency lesioning of the medial branch nerves of the lumbar spine. He returns for that injection today. He has been advised risks and benefits, states he understood and wished to proceed. 2. The patient indicates he continues to participate in daily activities. 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 He requests refill of medications at this time. 3. The patient was provided a prescription of hydrocodone/acetaminophen 10/325 one tab every 8 hours p.r.n. for pain. I have given the patient a prescription of medication sent to his local pharmacy for release in 3 weeks, as he does not need the medication immediately. 4. The patient was provided a refill prescription of tramadol 50 mg dose 1 tab p.o. t.i.d. p.r.n. mild to moderate pain. He was given #90 tablets to release in 3 weeks. 5. The patient was provided prescription of nabumetone 500 mg dose 1 tab p.o. t.i.d., #90 tablets, 2 refills. Prescription sent via e-scribe to local pharmacy. 6. The patient was provided prescription of diclofenac gel 1% solution applied topically up to 4 times a day. I have given the patient #3 tubes of 100 grams each with 2 refills, 3 months' worth of medication. Prescription sent via e-scribe to local pharmacy. 7. We will plan to see the patient back in followup visit to undergo radiofrequency lesioning of medial branch nerves of the lumbar spine, assuming he receives 80% improvement in overall pain with today's procedure. He will [facility] [address] [place] [address] PAIN MANAGEMENT CONSULTATION Name: CATYZebDEE Room #: REG GERALD Hutchison#: [id number] Admission: 05/09/20 Attend Phys: Yovani Gonzalez DO Discharge: Date of : 49 Report #: [id number] contact our clinic once he has recurrence of symptoms and advise us of the efficacy of the medial branch blocks provided today. If it is appropriate response to the injections, then we will move forward with radiofrequency lesioning. <ELECTRONICALLY SIGNED> By: Yovani Gonzalez DO 05/10/20 1101 1600 06 Yovani Gonzalez DO /nt
--- NOTE | 2020-05-10 11:01 | P ---
[facility] [address] [address] [address] PROCEDURE REPORT Name: DEE JOE Room #: REG [facility] Foster#: [id number] Admission: 05/09/20 Attend Phys: Yovani Gonzalez DO Discharge: Date of : 49 Report #: [id number] THIS REPORT FOR: cc: FAM - No family physician/PCP FAM - No family physician/PCP Yovani Gonzalez DO ~ DATE OF SERVICE: 05/09/2020 PROCEDURE NOTE DESCRIPTION OF PROCEDURE: Bilateral L3, L4, L5 medial branch blocks under fluoroscopic guidance. After obtaining written consent, the patient was taken back to fluoroscopy suite, placed in prone position with pillow under abdomen to decrease lumbar lordosis. Skin overlying lumbosacral area was then prepped and draped in aseptic fashion. The L4 transverse process corresponding the L3 medial branch nerve and the L5 transverse process corresponding the L4 medial branch nerve on both the left and right sides were visualized under AP fluoroscopy. Skin and subcutaneous tissue overlying target site of injections were anesthetized with 2 mL of 1% lidocaine. Four 22-gauge 4-1/2 inch spinal needles with bent tips were advanced under fluoroscopic guidance using superior to inferior, lateral to medial approach to the dorsal superior and medial aspect of the base of the transverse processes. [place] were then directed caudally to reach their target locations. Oblique view facilitated needle placement with properly positioned needles within the middle of the eye of the Marty dog. At each site, needles rested on periosteum. After negative aspiration for heme, 0.5 mL of bupivacaine 0.5% was injected at each site in a slow fashion to avoid forcing the solution from the target sites. [place] were then removed. The L5 dorsal ramus block on both the left and right side was performed using a slightly oblique approach under fluoroscopic guidance, placing the needle within the groove between the sacral ala and the superior articular process of S1. Needle rested on periosteum. After negative aspiration for heme, 0.5 mL of 0.5% bupivacaine was injected slowly. [place] were then removed and sterile bandages were placed over each injection sites. The patient tolerated procedure well, carefully escorted to recovery room in stable condition. No apparent complications. VAS before procedure rated at [facility] [address] [place] [address] PROCEDURE REPORT Name: DEE JOE Room #: REG CLI [facility].#: [id number] Admission: 05/09/20 Attend Phys: Yovani Gonzalez DO Discharge: Date of : 49 Report #: [id number] 9/10, VAS 10 minutes after procedure rated at 0/10. After meeting our discharge criteria, the patient discharged home. <ELECTRONICALLY SIGNED> By: Yovani Gonzalez DO 05/10/20 1101 1600 07 Yovani Gonzalez DO /nt
== END | disposition home or self-care (01) ==
LOC: PAIN 06:57
PROVIDERS: ATTEND Anesthesiology Pain Medicine
DX: M47.817 Spondylosis without myelopathy or radiculopathy, lumbosacral region (principal); M47.816 Spondylosis without myelopathy or radiculopathy, lumbar region; M96.1 Postlaminectomy syndrome, not elsewhere classified; M54.16 Radiculopathy, lumbar region; G89.29 Other chronic pain; F11.20 Opioid dependence, uncomplicated; F17.210 Nicotine dependence, cigarettes, uncomplicated; Z98.890 Other specified postprocedural states; Z79.899 Other long term (current) drug therapy

== ENCOUNTER → 2020-05-24 | Outpatient (CLI) | payer OTHER ==
[~2020-05-24] VITALS: Ht 165.1 cm; Wt 73.8 kg
[2020-05-24 13:22] VITALS: BP 128/56
--- NOTE | 2020-05-24 13:29 | NUR ---
Pain Clinic Assessment: 1. History of Osteoarthritis: BACK History of Rheumatoid Arthritis: DENIES 2. Height: 5 ft. 5 in. 165.1 cm. Weight: 162.8 lb. oz. 73.846 kg. Patient's BMI: 27.1 3. Vital Signs: BP: 128/56 Pulse: 66 Resp: 14 Temp: 02 Sat: 98 ECG Mon: 4. Pain Intensity: 7 5. Fall Risk: Dizziness: N Needs help standing or walking: N Fallen in the last 3 months: N Fall risk comments: 6. Patient on Blood Thinner: None 7. History of Hypertension: Y 8. Opioid Therapy greater than 6 weeks: Y Opiate Contract Signed: 09/19/17 9. Risk Assessment Tool Provided: LOW RISK 11/29 10. Functional Assessment Tool: 11. Recreational Drug Use: Never Drug Type: Tobacco Use: Smoker,Current Status Unk Tobacco Type: Amount or Packs/day: How Many Years: Alcohol Use: Yes Frequency: Quant:
--- NOTE | 2020-05-31 12:44 | HPC ---
[facility] [place] [address] PAIN MANAGEMENT CONSULTATION Name: DEE JOE Room #: REG CLEnoc MMalgorzata.#: [id number] Admission: 05/24/20 Attend Phys: Yovani Gonzalez DO Discharge: Date of : 49 Report #: [id number] THIS REPORT FOR: cc: FAM - No family physician/PCP FAM - No family physician/PCP Yovani Gonzalez DO ~ DATE OF SERVICE: 05/24/2020 CHIEF COMPLAINT: Axial low back pain. HISTORY OF PRESENT ILLNESS: As you know, the patient is a 74-year-old male, who has had a longstanding history of axial low back pain. He has undergone medial branch nerve blocks x 2 with good efficacy, the most recent providing near 80% improvement in overall pain. He returns today in followup visit for the first of the staged radiofrequency lesioning of the medial branch nerves of the lumbar spine. He has chosen to undergo right side L3, L4, L5 RFA today with plans to undergo left side in 2 weeks. He returns today in followup visit to begin the radiofrequency lesioning process to address his 7/10 pain. ALLERGIES: No known drug allergies. CURRENT MEDICATIONS: Hydrocodone, tramadol, diclofenac, citalopram, lisinopril, metformin. SOCIAL HISTORY: The patient denies tobacco, alcohol or IV illicit drug use. Unaccompanied at today's visit. IMAGING: No new imaging available. PHYSICAL EXAMINATION: VITAL SIGNS: Blood pressure 125/56, pulse 66, respiratory rate 14 and unlabored. The patient is 98% on room air. Height 5 feet 5 inches tall, weight is 162.8 pounds, BMI calculated 27.1. GENERAL: Well-developed, well-nourished, well-hydrated 74-year-old male appearing stated age. Pain is rated today 7/10. HEENT: Normocephalic, atraumatic. Pupils are round and reactive. Speech fluent. EXTREMITIES: Show no clubbing, no cyanosis. No appreciable edema. MUSCULOSKELETAL: Lower extremity strength remains symmetrical 5/5. Intact to light touch from L1 through S2 dermatomes. Lumbar provocation testing is met with increasing pain, specifically with extension, rotation, lateral flexion greater to the right than the left. ASSESSMENT: 1. Lumbosacral spondylosis without current radicular symptoms. [address] [address] PAIN MANAGEMENT CONSULTATION Name: DEE JOE Room #: REG [facility] Foster#: [id number] Admission: 05/24/20 Attend Phys: Yovani Gonzalez DO Discharge: Date of : 49 Report #: [id number] 2. Facet arthropathy of the lumbar spine. 3. Chronic lumbar radiculopathy. 4. Failed lumbar spine surgery. 5. Opioid dependency. 6. Complicated medication management utilizing scheduled medications. 7. Chronic intractable pain. PLAN: 1. The patient returns today in followup visit to undergo radiofrequency lesioning of the medial branch nerves of the lumbar spine. The patient has been advised of the risks and the benefits of this procedure. These risks include but are not necessarily limited to bleeding, bruising, infection, worsening pain, no relief of pain and also risk of temporary or permanent muscle weakness, temporary or permanent nerve damage, possible paralysis and . The patient states understood and wished to proceed. 2. No medication changes made at today's visit. The patient will continue current medical therapy as previously prescribed. 3. We will see the patient back in followup visit in 2 weeks. At that time, we will discuss the efficacy of the right medial branch nerve radiofrequency lesioning and discuss the continuation of the process addressing the left side. The patient is agreeable. PROCEDURE NOTE DESCRIPTION OF PROCEDURE: Right L3, L4, L5 lumbar medial branch nerve radiofrequency ablations. The procedure was explained. Informed consent was obtained from the patient. The patient was informed of the risks of procedure including infection, bleeding, nerve damage, failure to produce pain relief and postoperative discomfort lasting for several weeks. The patient was taken back to fluoroscopy suite, placed in prone position with pillow under abdomen to decrease lumbar lordosis. Skin overlying the lumbosacral area then prepped and draped in aseptic fashion. AP imaging of the lumbar spine was used to identify the L2 through L5 vertebral bodies and the sacral ala. The target locations of the L4 transverse process corresponding the L3 medial branch nerve and the L5 transverse process corresponding the L4 medial branch nerve on the right side were established. Using a 25-gauge 1-1/4 inch needle, skin wheals were placed at the junction of the transverse process in the respective superior articular process using 1 mL of 1% lidocaine. We were careful to only anesthetize skin and not the deep tissue. The radiofrequency lesioning needles were then advanced under fluoroscopic guidance using a superior, inferior, lateral to medial approach, the dorsal superior and medial aspect of the base of the transverse processes. [address] [address] PAIN MANAGEMENT CONSULTATION Name: DEE JOE Room #: ERICKSON Hutchison#: [id number] Admission: 05/24/20 Attend Phys: Yovani Gonzalez DO Discharge: Date of : 49 Report #: [id number] Cashion were then directed caudad to reach the target locations. An oblique view facilitated needle placement with properly positioned needles within the middle of the eye of the Marty dog. At each site, needles rested on periosteum. Touching bone initially assured needles were not placed too deeply. Radiofrequency lesioning of the L5 medial branch nerve on the right side was performed using a superior, inferior, lateral to medial approach. This was done under fluoroscopic guidance, placing the needle within the groove between the sacral ala of those and the superior articular process of S1. Needle rested on periosteum. Stimulation was performed at each level once the cannulas were in position. Sensory stimulation was performed at 0.2, 0.3 and 0.4 with good impedance of 279, 177 and 349 for the L3, L4, L5 medial branch nerves at 50 Hz respectively. Good stimulation of the lumbar buttock region was elicited indicating correct alignment with the posterior primary ramus. Absence of lower motor fasciculation was noted at 3 volts 2 Hz stimulating during the L3, L4, L5 medial branch nerves testing. After this affirmation of disassociation between sensory and motor stimulation, negative aspiration was noted at all levels. Next, 1 mL bupivacaine 0.5% was injected. After a 90-second delay, lesions were performed at 80 degrees Celsius for 90 seconds. After the needle tips had cooled, 1 mL of a solution containing 1 mL 40 mg per mL, 40 mg total triamcinolone along with 3 mL of bupivacaine 0.5% was injected slowly. Needle retracted half-way, flushed with 0.5 mL of bupivacaine 0.5%, then removed. Sterile bandage was placed over each of the injection sites. The patient was able to move all 4 extremities purposely after procedure. The patient tolerated the procedure well, carefully escorted to recovery room in stable condition. No apparent complications. After meeting discharge criteria, the patient discharged home. <ELECTRONICALLY SIGNED> By: Yovani Gonzalez DO 05/31/20 [id number] Yovani Gonzalez DO /nt
== END | disposition home or self-care (01) ==
LOC: PAIN 05-23 06:46
PROVIDERS: ATTEND Anesthesiology Pain Medicine
DX: M54.5 Low back pain (principal); M47.817 Spondylosis without myelopathy or radiculopathy, lumbosacral region; M54.16 Radiculopathy, lumbar region; M19.90 Unspecified osteoarthritis, unspecified site; G89.29 Other chronic pain; Z79.899 Other long term (current) drug therapy; Z98.890 Other specified postprocedural states

== ENCOUNTER → 2020-06-14 | Outpatient (CLI) | payer OTHER ==
[~2020-06-14] VITALS: Ht 165.1 cm; Wt 72.7 kg
--- NOTE | ~2020-06-14 | HPC ---
[facility] [address] [place] [address] PAIN MANAGEMENT CONSULTATION Name: DEE JOE Room #: REG GERALD LyLalitFavianLalit#: [id number] Admission: 06/14/20 Attend Phys: Yovani Gonzalez DO Discharge: Date of : 49 Report #: [id number] THIS REPORT FOR: cc: [place] - [place] family physician/PCP FAM - No family physician/PCP Yovani Gonzalez DO ~ CC: [facility] physician/PCP Yovani THURSTON DATE OF SERVICE: 06/14/2020 REFERRING PHYSICIAN: Destin Thurston MD CHIEF COMPLAINT: Right low back pain. HISTORY OF PRESENT ILLNESS: As you know, the patient is a 74-year-old male who has been followed by [facility] for an extended period of time for lumbar radiculopathy. He has undergone epidural injections under fluoroscopic guidance with benefit. He began to experience increasing right back pain, diagnosed with facet arthropathy, symptoms exacerbated by age and changes in his lumbar region. He trialled conservative medication management for these symptoms initially, but these subsequently failed. He underwent medial branch blocks x 2 with good efficacy. He returns today in followup visit after completing the radiofrequency lesioning of the medial branch nerves on the right, reporting a 50% improvement in overall pain on the right. He has no pain currently on his left side. He returns today to discuss treatment options. Pain today intensity is about 5/10. ALLERGIES: No known drug allergies. CURRENT MEDICATIONS: Hydrocodone, tramadol, diclofenac, citalopram, lisinopril, and metformin. SOCIAL HISTORY: The patient denies tobacco, alcohol, IV or illicit drug use. He is unaccompanied at today's visit. IMAGING: No new imaging available. PHYSICAL EXAMINATION: VITAL SIGNS: Blood pressure 124/62, pulse is 79, respiratory rate 16 and unlabored. The patient is 96% on room air. Height 5 feet 5 inches tall, weight 160.2 pounds, BMI calculated 26.7. GENERAL: Well-developed, well-nourished, well-hydrated, 74-year-old male. He appears stated age, pain is rated now at 5/10. HEENT: Normocephalic, atraumatic. Pupils equal, round and reactive. Speech [facility] [address] [place] [address] PAIN MANAGEMENT CONSULTATION Name: DEE JOE Room #: REG [facility].#: [id number] Admission: 06/14/20 Attend Phys: Yovani Gonzalez DO Discharge: Date of : 49 Report #: [id number] fluent. EXTREMITIES: Show no clubbing, no cyanosis. No reported edema. MUSCULOSKELETAL: Lower extremity strength is symmetrical 5/5, intact to light touch from L1 through S2 dermatomes. Seated straight leg raising is negative. Supine straight leg raising is negative. Lumbar provocation testing is met with slight increase in right low back pain, but this is improved from previous evaluation. ASSESSMENT: 1. Lumbosacral spondylosis without current radiculopathy. 2. Facet arthropathy of the lumbar spine. 3. Chronic lumbar radiculopathy. 4. Failed lumbar spine surgery. 5. Opioid dependency. 6. Complicated medication management utilizing scheduled medications. 7. Chronic intractable pain. PLAN: 1. The patient has returned today in followup visit indicating about a 50% improvement in overall pain with the radiofrequency lesioning on the right side. The patient at this point is not experiencing any left sided discomfort. We had planned to have the patient undergo radiofrequency lesioning of the left L3, L4, L5 medial branch nerves today, but given the lack of pain in the area, we would not recommend ablating the nerves on this side as he is experiencing no discomfort. If he does begin to experience left low back pain, we would certainly be willing to see him back to discuss radiofrequency lesioning, but at this point, I would not recommend undergoing a procedure to address a nonpainful area. The patient is in agreement. In regards to the patient's 50% improvement in pain on the right, this is a good response to radiofrequency lesioning. We are only 2-1/2-3 weeks out from our procedure and it could take some more time for the full effects of that procedure to be realized. A 50% improvement in symptoms is a significant change and we are pleased with the response to date. We are hopeful he will see a greater improvement in analgesia over the next couple of weeks. There is likely a secondary generator of pain in the area that cannot be alleviated with interventional treatments and we did discuss this with the patient today. He may be left with residual symptoms, though given a 50% improvement; he should be doing much better from a functional standpoint. He will contact our clinic in the next couple of weeks to advise of any further improvement. We reviewed the fact that opiate medications are being used to provide analgesia adequate to support activities of daily living, not attempting to achieve a specific pain score on the 0-10 Visual Analog Scale. The current opiate medications are providing sufficient analgesia to allow the patient to participate in activities of daily living. The patient is not exhibiting any [facility] [address] [place] [address] PAIN MANAGEMENT CONSULTATION Name: DEE JOE Room #: REG GERALD Hutchison#: [id number] Admission: 06/14/20 Attend Phys: Yovani Gonzalez DO Discharge: Date of : 49 Report #: [id number] aberrant behavior suggestive of drug diversion. The patient is not having any adverse reactions to medications. The patient is not suffering from daytime somnolence or mental acuity changes. The patient is managing opiate-induced constipation with appropriate jeyt-lxt-[id number] agents and dietary considerations. The patient was counseled on concern for caution with operating a motor vehicle while using opiate medications. .A physical exam was performed and the patient's functional status was evaluated. All patients with back pain were advised against the bed rest greater than 4 days and were advised to return to normal activities. Pain score assessment was noted and the treatment plan was reviewed with the patient. All current medications, both prescribed and OTC were reviewed and reconciled on the electronic medical record. Tobacco screening was accomplished and smoking cessation was advised when indicated. BMI was noted and diet/exercise modification was recommended for all patients following outside normal parameters. I reviewed with the patient today their responsibilities to safeguard prescription medications, reviewed their responsibility to utilize medications only as prescribed by the physician. They are to seek and receive pain medications only from 1 physician group ( [facility]). They are to use 1 pharmacy and keep the clinic informed if they change pharmacies. Their responsibilities include making followup visits in a timely fashion and to avoid abrupt discontinuation of medication usage. Their responsibilities further include bringing their medications (bottles from the pharmacy with residual pills) to the visit for possible confirmation of pill counts and the patient understands it is their responsibility to submit to random drug screens to ensure both that the medications prescribed are present, and that no other controlled substances are present. All prescriptions provided today were generated electronically. 3. The patient was provided prescription of hydrocodone/acetaminophen 10/325 one tab p.o. q. 6 hours p.r.n. for pain. We have given the patient #120, tablets to release today and 4 weeks from today, 2 months' worth of medication. The patient is taking 40 mg of morphine equivalents a day. This is well within the safe range based on CDCs recommended guidelines for opioid use for chronic pain. 4. The patient was provided prescription of nabumetone 500 mg dose 1 tab p.o. t.i.d. I have given the patient #90 with 2 refills. I have advised the patient to take this medication in the morning, take again at 2:00 and then again at 7:00 in the evening. This will provide the patient with better baseline analgesic benefit. I do not feel he is receiving the greatest effect of this medication. 5. The patient was provided refill prescription of his tramadol 50 mg dose 1 tab p.o. q. 8 hours p.r.n. for pain. I have given the patient #90 tablets with 1 refill, 2 months' worth of medication. The patient was [place] [address] PAIN MANAGEMENT CONSULTATION Name: CATYZebDEE Room #: REG CLEnoc Hutchison#: [id number] Admission: 06/14/20 Attend Phys: Yovani Gonzalez DO Discharge: Date of : 49 Report #: [id number] only when pain is intolerable, not to rely on the medication prophylactically. 6. The patient returns to our clinic in 2 months for medication management, earlier if interventional treatments are requested. By: [id number] Yovani Gonzalez DO /nt
[2020-06-14 13:11] VITALS: BP 124/62
--- NOTE | 2020-06-14 13:18 | NUR ---
Pain Clinic Assessment: 1. History of Osteoarthritis: BACK History of Rheumatoid Arthritis: DENIES 2. Height: 5 ft. 5 in. 165.1 cm. Weight: 160.2 lb. oz. 72.666 kg. Patient's BMI: 26.7 3. Vital Signs: BP: 124/62 Pulse: 79 Resp: 16 Temp: 02 Sat: 96 ECG Mon: 4. Pain Intensity: 5 5. Fall Risk: Dizziness: N Needs help standing or walking: N Fallen in the last 3 months: N Fall risk comments: 6. Patient on Blood Thinner: None 7. History of Hypertension: Y 8. Opioid Therapy greater than 6 weeks: Y Opiate Contract Signed: 09/19/17 9. Risk Assessment Tool Provided: LOW RISK 11/29 10. Functional Assessment Tool: 11. Recreational Drug Use: Never Drug Type: Tobacco Use: Smoker,Current Status Unk Tobacco Type: Chewing Tobacco Amount or Packs/day: How Many Years: Alcohol Use: Yes Frequency: Monthly Quant: 1
== END ==
LOC: PAIN 06:56
PROVIDERS: ATTEND Anesthesiology Pain Medicine
DX: M47.27 Other spondylosis with radiculopathy, lumbosacral region (principal); M96.1 Postlaminectomy syndrome, not elsewhere classified; F11.20 Opioid dependence, uncomplicated; G89.29 Other chronic pain; Z79.899 Other long term (current) drug therapy

== ENCOUNTER → 2020-07-19 | Outpatient (CLI) | payer OTHER ==
[~2020-07-19] VITALS: Ht 167.6 cm; Wt 74.8 kg
[~2020-07-19] MED LIST changes: +DICLOFENAC SODI50 MG PO; +NABUMETONE 500500 M2 PO
[2020-07-19 12:48] VITALS: BP 141/63
--- NOTE | 2020-07-19 13:05 | NUR ---
Pain Clinic Assessment: 1. History of Osteoarthritis: BACK History of Rheumatoid Arthritis: DENIES 2. Height: 5 ft. 6 in. 167.6 cm. Weight: 165.0 lb. oz. 74.844 kg. Patient's BMI: 26.6 3. Vital Signs: BP: 141/63 Pulse: 76 Resp: 16 Temp: 02 Sat: 97 ECG Mon: 4. Pain Intensity: 8 5. Fall Risk: Dizziness: Needs help standing or walking: Fallen in the last 3 months: Fall risk comments: 6. Patient on Blood Thinner: None 7. History of Hypertension: Y 8. Opioid Therapy greater than 6 weeks: Y Opiate Contract Signed: 09/19/17 9. Risk Assessment Tool Provided: LOW RISK 0 10. Functional Assessment Tool: 11. Recreational Drug Use: Never Drug Type: Tobacco Use: Former Smoker Tobacco Type: Cigarettes Amount or Packs/day: How Many Years: Alcohol Use: Yes Frequency: Monthly Quant: 2
--- NOTE | 2020-07-25 08:08 | HPC ---
[facility] [place] [address] [address] PAIN MANAGEMENT CONSULTATION Name: DEE JOE Room #: REG GERALD LyLalitFavian.#: [id number] Admission: 07/19/20 Attend Phys: Yovani Gonzalez DO Discharge: Date of : 49 Report #: [id number] CC: [facility] physician/PCP Yovani Gonzalez DATE OF SERVICE: 07/19/2020 CHIEF COMPLAINT: Low back pain, right hip pain. HISTORY OF PRESENT ILLNESS: As you know, the patient is a 74-year-old male with longstanding history of lumbar radicular symptoms, status post fusion with residual pain radiating from the back down the right leg. He returns today in followup visit to undergo next in the series of lumbar epidural injections. He is also requested refill of medications. He has been experiencing increasing osteoarthritic changes in the hands and wants to discuss the possibility of adjusting medications to address this as well. He returns today for injection and medication therapy. ALLERGIES: No known drug allergies. CURRENT MEDICATIONS: Hydrocodone, tramadol, diclofenac, citalopram, lisinopril, metformin. SOCIAL HISTORY: The patient denies tobacco, alcohol, IV or illicit drug use. He is unaccompanied at today's visit. IMAGING: No new imaging available. PHYSICAL EXAMINATION: VITAL SIGNS: Blood pressure 141/63, pulse 76, respiratory rate 16 and unlabored. The patient is 97% on room air. Height 5 feet 6 inches tall, weight 165 pounds, BMI calculated 26.6. GENERAL: Well-developed, well-nourished, well-hydrated 74-year-old male appearing stated age. Pain is rated at around 8/10. HEENT: Normocephalic, atraumatic. Pupils equal, round and reactive. EXTREMITIES: Show no clubbing, no cyanosis. No appreciable edema. MUSCULOSKELETAL: Lower extremity strength is symmetrical again today 5/5. Intact to light touch from L1 through S2 dermatomes. Muscle bulk and tone is equal and symmetrical in comparing left lower extremity to right. Seated straight leg raising negative. Supine straight leg raising negative. Job's test is positive for some right hip discomfort. Ankle clonus negative. Babinski is negative. ASSESSMENT: 1. Chronic lumbar radiculopathy. 2. Lumbosacral spondylosis with radiculopathy. 3. Facet arthropathy of the lumbar spine. 4. Failed lumbar spine surgery. 5. Right hip pain. 6. Opioid dependency. 7. Complicated medication management utilizing scheduled medications. 8. Chronic intractable pain. PLAN: 1. The patient returns today in followup visit to undergo next in the series of lumbar epidural injections under fluoroscopic guidance. He reports good efficacy with previous epidural injections, but now experiencing pain more related to his fusion area. He is experiencing pain, he reports at 8/10. He wishes to have an injection in the area to determine if this will improve his symptoms. Distribution of pain now radiates from the low back towards the hip and buttock area consistent with more of an L2-L3 dermatomal distribution. He has been advised risks and benefits of the procedure. He states understood and wished to proceed. 2. The patient will trial a dosing of diclofenac sodium 50 mg dose 1 tab p.o. b.i.d. This will be for baseline anti-inflammatory effects. He will watch for side effects of dyspepsia, worsening of blood pressure, or lower extremity edema with the medication. He was given a prescription today with releases of now in 1 month from now. He is to discontinue all other nonsteroidal anti-inflammatories in favor of the diclofenac sodium including discontinuation of his nabumetone. 3. We reviewed the fact that opiate medications are being used to provide analgesia adequate to support activities of daily living, not attempting to achieve a specific pain score on the 0-10 Visual Analog Scale. The current opiate medications are providing sufficient analgesia to allow the patient to participate in activities of daily living. The patient is not exhibiting any aberrant behavior suggestive of drug diversion. The patient is not having any adverse reactions to medications. The patient is not suffering from daytime somnolence or mental acuity changes. The patient is managing opiate-induced constipation with appropriate [id number]-vhinjtz agents and dietary considerations. The patient was counseled on concern for caution with operating a motor vehicle while using opiate medications. A physical exam was performed and the patient's functional status was evaluated. All patients with back pain were advised against the bed rest greater than 4 days and were advised to return to normal activities. Pain score assessment was noted and the treatment plan was reviewed with the patient. All current medications, both prescribed and OTC were reviewed and reconciled on the electronic medical record. Tobacco screening was accomplished and smoking cessation was advised when indicated. BMI was noted and diet/exercise modification was recommended for all patients following outside normal parameters. I reviewed with the patient today their responsibilities to safeguard prescription medications, reviewed their responsibility to utilize medications only as prescribed by the physician. They are to seek and receive pain medications only from 1 physician group ( [facility]). They are to use 1 pharmacy and keep the clinic informed if they change pharmacies. Their responsibilities include making followup visits in a timely fashion and to avoid abrupt discontinuation of medication usage. Their responsibilities further include bringing their medications (bottles from the pharmacy with residual pills) to the visit for possible confirmation of pill counts and the patient understands it is their responsibility to submit to random drug screens to ensure both that the medications prescribed are present, and that no other controlled substances are present. All prescriptions provided today were generated electronically. 4. The patient was provided prescription of hydrocodone/acetaminophen 10/325 one tab p.o. q. 6 hours p.r.n. for pain. I have given the patient #120 to release today and 4 weeks from today, 2 months' worth of medication. 5. The patient was provided a refill prescription of tramadol 50 mg dose 1 tab p.o. q. 8 hours p.r.n. mild to moderate pain. I have given the patient #90 tablets with 1 refill. 6. We will see the patient back in followup visit in 2 months for medication management, earlier if he wishes to return to undergo next in the series of epidural injections. PROCEDURE NOTE DESCRIPTION OF PROCEDURE: L2-L3 interlaminar epidural steroid injection under fluoroscopic guidance. After obtaining written consent, the patient was taken back to fluoroscopy suite, placed in prone position with pillow under abdomen to decrease lumbar lordosis. Skin overlying the lumbosacral area prepped and draped in aseptic fashion. The L2-L3 vertebral interspace was identified by AP fluoroscopy. Skin and subcutaneous tissue overlying the target site of injection anesthetized with 3 mL of 1% lidocaine. A 20-gauge 3-1/2 inch Tuohy needle advanced under fluoroscopic guidance towards the epidural space using a parasagittal approach. Epidural space identified using loss of resistance to air technique. After negative aspiration for heme or cerebrospinal fluid, 1 mL of Omnipaque injected. A lumbar epidurogram was confirmed using both AP and lateral fluoroscopy. After negative aspiration for heme or cerebrospinal fluid, 5 mL of solution containing 2 mL 40 mg per mL, 80 mg total triamcinolone along with 3 mL of lidocaine 1% injected slowly. Needle then retracted approximately half way, flushed with 1 mL of 1% lidocaine and then removed. Sterile bandage placed over injection site. No new motor deficits present in the lower extremities following procedure. The patient tolerated procedure well, carefully escorted to recovery room in stable condition. No apparent complications. After meeting discharge criteria, the patient discharged home. <ELECTRONICALLY SIGNED> By: Yovani Gonzalez DO 07/25/20 0808 [id number] 50 Yovani Gonzalez DO /nt
== END | disposition home or self-care (01) ==
LOC: PAIN 06:54
PROVIDERS: ATTEND Anesthesiology Pain Medicine
DX: M47.27 Other spondylosis with radiculopathy, lumbosacral region (principal); M47.26 Other spondylosis with radiculopathy, lumbar region; M96.1 Postlaminectomy syndrome, not elsewhere classified; G89.29 Other chronic pain; M25.551 Pain in right hip; F11.20 Opioid dependence, uncomplicated; Z79.899 Other long term (current) drug therapy; Z98.890 Other specified postprocedural states; Z87.891 Personal history of nicotine dependence

== ENCOUNTER → 2020-08-16 | Outpatient (CLI) | payer OTHER ==
[~2020-08-16] VITALS: Ht 167.6 cm; Wt 72.7 kg
[2020-08-16 12:53] VITALS: BP 123/89
--- NOTE | 2020-08-16 13:10 | NUR ---
Pain Clinic Assessment: 1. History of Osteoarthritis: BACK History of Rheumatoid Arthritis: DENIES 2. Height: 5 ft. 6 in. 167.6 cm. Weight: 160.2 lb. oz. 72.666 kg. Patient's BMI: 25.9 3. Vital Signs: BP: 123/89 Pulse: 73 Resp: 16 Temp: 02 Sat: 97 ECG Mon: 4. Pain Intensity: 8 TO 10 5. Fall Risk: Dizziness: N Needs help standing or walking: N Fallen in the last 3 months: N Fall risk comments: 6. Patient on Blood Thinner: None 7. History of Hypertension: Y 8. Opioid Therapy greater than 6 weeks: Y Opiate Contract Signed: 09/19/17 9. Risk Assessment Tool Provided: LOW RISK 0 10. Functional Assessment Tool: 11. Recreational Drug Use: Never Drug Type: Tobacco Use: Former Smoker Tobacco Type: Amount or Packs/day: How Many Years: Alcohol Use: Yes Frequency: Monthly Quant: 2
--- NOTE | 2020-08-22 09:40 | HPC ---
[facility] [address] [place] [address] PAIN MANAGEMENT CONSULTATION Name: DEE JOE Room #: REG GERALD Foster#: [id number] Admission: 08/16/20 Attend Phys: Yovani Gonzalez DO Discharge: Date of : 49 Report #: [id number] THIS REPORT FOR: cc: FAM - No family physician/PCP FAM - No family physician/PCP Yovani Gonzalez DO ~ DATE OF SERVICE: 08/16/2020 REFERRING PHYSICIAN: Destin Thurston MD CHIEF COMPLAINT: Right mid back pain. HISTORY OF PRESENT ILLNESS: As you know, the patient is a 75-year-old male with longstanding history of lumbar radicular symptoms and lumbar facet arthropathy, status post fusion with residual pain. The patient, as you are aware, has undergone surgery to address lumbar radicular pain. The fusion appears to be the T12-L1 level based on imaging. The patient has undergone radiofrequency lesioning of the medial branch nerves of the lower lumbar spine addressing L3, L4 and L5 medial branch nerves respectively. He has no pain in this area, status post procedure. Unfortunately, the patient is experiencing pain above the medial branch radiofrequency lesioning consistent with continued facet arthropathy pain from the fusion level to the L3 level. He returns to discuss options for treatment. He is placing pain today at a level of 8-10/10. He notes mainly pain with walking and standing tends to improve with sitting down consistent with facet arthropathy. He returns to discuss treatment options for this issue. ALLERGIES: No known drug allergies. CURRENT MEDICATIONS: Hydrocodone, tramadol, diclofenac, citalopram, lisinopril, metformin. SOCIAL HISTORY: The patient denies tobacco, alcohol, IV or illicit drug use. He is unaccompanied at today's visit. IMAGING: No new imaging available. PHYSICAL EXAMINATION: VITAL SIGNS: Blood pressure 123/89, pulse 73, respiratory rate 16 and unlabored. The patient is 97% on room air. Height 5 feet 6 inches tall, weight 160.2 pounds, BMI calculated 25.9. GENERAL: Well-developed, well-nourished, well-hydrated 75-year-old male appearing stated age. Pain is rated anywhere from 8-10/10. HEENT: Normocephalic, atraumatic. Pupils equal, round and reactive. NEUROLOGIC: Speech is fluent. The patient deemed an excellent historian. [address] [address] PAIN MANAGEMENT CONSULTATION Name: DEE JOE Room #: REG CLI [facility]#: [id number] Admission: 08/16/20 Attend Phys: Yovani Gonzalez DO Discharge: Date of : 49 Report #: [id number] EXTREMITIES: Show no clubbing, no cyanosis, no edema. MUSCULOSKELETAL: The patient has palpatory tenderness over the area lateral to the spinous process consistent with the facet joints just below his surgical area. As you are aware, the patient has a fusion at the T12-L1 level with changes from an arthritic standpoint affecting the upper thoracic area just inferior to the fusion. Provocating testing exacerbates symptoms. Seated straight leg raising negative. Supine straight leg raising negative. ASSESSMENT: 1. Lumbosacral spondylosis without current radicular symptoms. 2. Facet arthropathy of the lumbar spine. 3. Failed lumbar spine surgery. PLAN: 1. The patient returns today in followup visit with point specific right upper lumbar pain consistent with facet arthropathy. With provocating testing we were able to elicit facet arthropathy symptoms on the right side only and this is just inferior to the fusion, but above the area of medial branch blocks provided in the past with successful radiofrequency lesioning. We would recommend at this point, the patient undergo L2 and L3 medial branch blocks on the right side. If this is successful at alleviating the patient's symptoms, we would recommend extending the radiofrequency lesioning to the L2 and L3 medial branch nerves respectively. The patient is agreeable with plan. He has been advised risks and benefits, states understood and wished to proceed. 2. The patient was provided prescription of hydrocodone/acetaminophen 10/325 one tab every 6 hours p.r.n. for pain. I have given the patient #120, releasing today and 4 weeks from today, 2 months' worth of medication. The patient was advised to take the medication only when pain is intolerable, not to rely on the medication prophylactically. 3. We plan to see the patient back in followup visit next week. After undergoing the medial branch blocks at L2 and L3 on the right side, he had 100% resolution of symptoms going about activities here at the clinic and on his way home. He is very pleased with response to medial branch block and wishes to move forward with the RFA of the area to address his residual pain. Given his improvement in symptoms, I would recommend the same. 4. We will see the patient back on Friday of next week for radiofrequency lesioning of the medial branch nerves on the right at L2 and L3. PROCEDURE NOTE DESCRIPTION OF PROCEDURE: Right L2-L3 medial branch block under fluoroscopic guidance. After obtaining written consent, the patient was taken back to fluoroscopy suite, placed in prone position with pillow under abdomen to decrease lumbar lordosis. Skin overlying the lumbosacral area was then prepped and draped in aseptic fashion. The skin and subcutaneous tissue was anesthetized with 2 mL of [address] [address] PAIN MANAGEMENT CONSULTATION Name: DEE JOE Room #: REG CL MBrigitte#: [id number] Admission: 08/16/20 Attend Phys: Yovani Gonzalez DO Discharge: Date of : 49 Report #: [id number] 1% lidocaine just overlying the areas of the injections. Two 22-gauge 3-1/2 inch spinal needles with bent tips were advanced under fluoroscopic guidance using a superior, inferior, lateral to medial approach to the dorsal superior and medial aspect of the base of the transverse processes. The needles were then directed caudad to reach their target locations. Oblique view facilitated needle placement with properly positioned needles within the middle of the "eye" of the Marty dog. At each site, needles rested on periosteum. After negative aspiration for heme or cerebrospinal fluid, 0.5 mL bupivacaine was injected at each level. [place] were retracted residential, then flushed with 0.25 mL of lidocaine 1% and removed. Sterile bandage placed over injection site. The patient tolerated the procedure well, carefully escorted to recovery room in stable condition. VAS before procedure rated at 8-10/10, VAS 10 minutes after procedure and after doing provocating testing 0/10. After meeting our discharge criteria, the patient discharged home. <ELECTRONICALLY SIGNED> By: Yovani Gonzalez DO 08/22/20 0940 1428 Rosalie Gonzalez DO /miguel
== END | disposition home or self-care (01) ==
LOC: PAIN 06:54
PROVIDERS: ATTEND Anesthesiology Pain Medicine
DX: M47.817 Spondylosis without myelopathy or radiculopathy, lumbosacral region (principal); M96.1 Postlaminectomy syndrome, not elsewhere classified; Z98.890 Other specified postprocedural states; Z79.899 Other long term (current) drug therapy; Z79.891 Long term (current) use of opiate analgesic; Z87.891 Personal history of nicotine dependence

== ENCOUNTER → 2020-10-04 | Outpatient (CLI) | payer OTHER ==
[~2020-10-04] VITALS: Ht 167.6 cm; Wt 73.6 kg
[2020-10-04 13:29] VITALS: BP 114/56
--- NOTE | 2020-10-04 13:42 | NUR ---
Pain Clinic Assessment: 1. History of Osteoarthritis: BACK History of Rheumatoid Arthritis: DENIES 2. Height: 5 ft. 6 in. 167.6 cm. Weight: 162.2 lb. oz. 73.573 kg. Patient's BMI: 26.2 3. Vital Signs: BP: 114/56 Pulse: 80 Resp: 16 Temp: 02 Sat: 98 ECG Mon: 4. Pain Intensity: 8 5. Fall Risk: Dizziness: N Needs help standing or walking: N Fallen in the last 3 months: N Fall risk comments: 6. Patient on Blood Thinner: None 7. History of Hypertension: Y 8. Opioid Therapy greater than 6 weeks: Y Opiate Contract Signed: 09/19/17 9. Risk Assessment Tool Provided: LOW RISK 0 10. Functional Assessment Tool: 11. Recreational Drug Use: Never Drug Type: Tobacco Use: Former Smoker Tobacco Type: Amount or Packs/day: How Many Years: Alcohol Use: Yes Frequency: Quant:
--- NOTE | 2020-10-10 07:44 | HPC ---
[facility] [address] [address] [address] PAIN MANAGEMENT CONSULTATION Name: DEE JOE Room #: REG CLEnoc Anastasia.#: [id number] Admission: 10/04/20 Attend Phys: Yovani Gonzalez DO Discharge: Date of : 49 Report #: [id number] THIS REPORT FOR: cc: FAM - No family physician/PCP FAM - No family physician/PCP Yovani Gonzalez DO ~ DATE OF SERVICE: 10/04/2020 CHIEF COMPLAINT: Axial back pain. HISTORY OF PRESENT ILLNESS: As you know, the patient is a 75-year-old male who has had longstanding back pain issues, all related to an injury he sustained at his workplace. He last was seen in our clinic to undergo medial branch blocks to address the facet joint, just below his fusion. The patient reported excellent benefit addressing that pain generator on the right. He was made today's appointment to undergo radiofrequency lesioning of the L2 and L3 medial branch nerves on the right, which complete the radiofrequency lesioning of the lumbar region on the right side. The patient has been advised risks and benefits. He has made today's appointment to undergo the procedure. ALLERGIES: No known drug allergies. CURRENT MEDICATIONS: Hydrocodone, tramadol, diclofenac, citalopram, lisinopril, metformin. SOCIAL HISTORY: The patient denies tobacco, alcohol, IV or illicit drug use. He is unaccompanied today. IMAGING: No new imaging available. PHYSICAL EXAMINATION: VITAL SIGNS: Blood pressure 114/56, pulse 80, respiratory rate 16 and unlabored. The patient is 98% on room air. Height 5 feet 6 inches tall, weight 162.2 pounds and BMI calculated at 26.2. GENERAL: Well-developed, well-nourished, well-hydrated 75-year-old male appearing stated age, pain is rated today at 8/10. HEENT: Normocephalic, atraumatic. Pupils equal, round and reactive. The patient is wearing a mask in compliance with COVID-19 regulations. EXTREMITIES: Show no clubbing, no cyanosis, and no edema. MUSCULOSKELETAL: Palpatory tenderness is once again noted over the right lower thoracic upper lumbar area. Deep palpation directly over the fusion and facet joints just inferior to the fusion caused intensification of the pain. He returns today with seated straight leg raise negative and supine straight leg raising negative. ASSESSMENT: [address] [address] PAIN MANAGEMENT CONSULTATION Name: DEE JOE Room #: REG GERALD Hutchison#: [id number] Admission: 10/04/20 Attend Phys: Yovani Gonzalez DO Discharge: Date of : 49 Report #: [id number] 1. Lumbosacral spondylosis without radiculopathy. 2. Facet arthropathy of the lumbar spine. 3. Failed lumbar spine surgery. PLAN: 1. The patient returns today in followup visit having noted excellent benefit with the medial branch blocks to address the medial branch nerves L2 and L3 that directly innervates the L2 facet joint. We have received authorization for the patient to undergo medial branch radiofrequency lesioning of the right L2 and L3 medial branch nerves. He has been advised risks and benefits of the procedure, states he understood and wished to proceed. 2. The patient was provided refill prescription of his [place] 10/325 one tab p.o. q.6 hours p.r.n. for pain. I have given the patient #120 to release today and 4 weeks from today, 2 months' worth of medication. The patient will take the medication as directed. He will not utilize the medication prophylactically. 3. We plan to see the patient back in followup visit on an as needed basis. We are hopeful the patient will see good and prolonged benefit with the radiofrequency lesioning performed today. DESCRIPTION OF PROCEDURE: Right L2/L3 medial branch nerve radiofrequency lesioning under fluoroscopic guidance. The procedure was explained. Informed consent was obtained from the patient. The patient was informed of the risks of the procedure including infection, bleeding, nerve damage, failure to produce pain relief and postoperative discomfort lasting for several weeks. The patient agreed with undergoing the procedure and consent was signed. The patient was then taken back to fluoroscopy suite, placed in prone position with pillow under abdomen to decrease lumbar lordosis. Skin overlying lumbosacral area was then prepped and draped in aseptic fashion. AP imaging of the lumbar spine was used to identify the L1 through L5 vertebral bodies and the sacral ala. The target location on the right side of the L2 transverse process and the L3 transverse processes were identified. Using a 25-gauge 1-1/4 inch needle, skin wheals were placed at the junction of the transverse processes and the superior articular process at each level, 1 mL of 1% lidocaine was used at each site. We were careful to anesthetize the skin and not the deep tissues. Two radiofrequency lesioning needles were advanced under fluoroscopic guidance using a superior, inferior, lateral to medial approach to the dorsal superior and medial aspect of the base of the transverse processes. Sanderson were then directed caudad to reach target location. Oblique view facilitated needle placement with properly positioned needles within the middle of the "eye" of the Marty dog. At each site, needles rested on periosteum. Touching bone initially assured the needles were not placed too deeply. [address] [address] PAIN MANAGEMENT CONSULTATION Name: DEE JOE Room #: REG [facility]#: [id number] Admission: 10/04/20 Attend Phys: Yovani Gonzalez DO Discharge: Date of : 49 Report #: [id number] Stimulation was performed at each level once the cannulas were in position. Sensory stimulation was performed at 0.1 and 0.1 with impedance of 235 and 329 at 50 Hz for the L2 and L3 medial branch nerves respectively. Good stimulation of the lumbar region was noted indicating correct alignment with the posterior primary ramus. Absence of lower motor fasciculation was noted at 3 volts 2 Hz stimulation when testing the L2 and L3 medial branch nerves respectively. Following this, affirmation of disassociation between sensory and motor stimulation and after negative aspiration for heme or cerebrospinal fluid, 1 mL of bupivacaine 0.5% was injected at each site. After a 90-second delay, lesions were performed at 80 degrees Celsius for a total of 90 seconds. After the needle tips had cooled, 1 mL of a solution containing 1 mL 40 mg per mL, 40 mg total triamcinolone and 2 mL of bupivacaine 0.5% injected slowly. Sanderson were retracted skilled nursing, flushed with 1 mL of 1% lidocaine and removed. Sterile bandage placed over injection site. There were no new motor deficits present in the lower extremities following procedure. The patient tolerated the procedure well, carefully escorted to recovery room in stable condition. No apparent complications. After meeting discharge criteria, the patient discharged home. <ELECTRONICALLY SIGNED> By: Yovani Gonzalez DO 10/10/20 0744 1610 1802 Yovani Gonzalez DO /nt
== END | disposition home or self-care (01) ==
LOC: PAIN 08-22 09:17
PROVIDERS: ATTEND Anesthesiology Pain Medicine
DX: M47.817 Spondylosis without myelopathy or radiculopathy, lumbosacral region (principal); M47.816 Spondylosis without myelopathy or radiculopathy, lumbar region; M96.1 Postlaminectomy syndrome, not elsewhere classified; G89.29 Other chronic pain; Z98.890 Other specified postprocedural states; Z79.899 Other long term (current) drug therapy; Z79.891 Long term (current) use of opiate analgesic

== ENCOUNTER → 2020-11-21 | Outpatient (CLI) | payer OTHER ==
[~2020-11-21] VITALS: Ht 167.6 cm; Wt 73.5 kg
[2020-11-21 13:07] VITALS: BP 138/66
--- NOTE | 2020-11-21 13:27 | NUR ---
Pain Clinic Assessment: 1. History of Osteoarthritis: BACK History of Rheumatoid Arthritis: DENIES 2. Height: 5 ft. 6 in. 167.6 cm. Weight: 162.0 lb. oz. 73.483 kg. Patient's BMI: 26.2 3. Vital Signs: BP: 138/66 Pulse: 78 Resp: 16 Temp: 02 Sat: 98 ECG Mon: 4. Pain Intensity: 8 5. Fall Risk: Dizziness: N Needs help standing or walking: N Fallen in the last 3 months: N Fall risk comments: 6. Patient on Blood Thinner: None 7. History of Hypertension: Y 8. Opioid Therapy greater than 6 weeks: Y Opiate Contract Signed: 09/19/17 9. Risk Assessment Tool Provided: LOW RISK 0 10. Functional Assessment Tool: 11. Recreational Drug Use: Never Drug Type: Tobacco Use: Former Smoker Tobacco Type: Amount or Packs/day: How Many Years: Alcohol Use: Yes Frequency: Special Occasions Quant: 1
--- NOTE | 2020-11-22 11:53 | HPC ---
[facility] [place] [address] PAIN MANAGEMENT CONSULTATION Name: DEE JOE Room #: REG GERALD MMalgorzata.#: [id number] Admission: 11/21/20 Attend Phys: Yovani Gonzalez DO Discharge: Date of : 49 Report #: [id number] THIS REPORT FOR: cc: FAM - No family physician/PCP FAM - No family physician/PCP Yovani Gonzalez DO ~ DATE OF SERVICE: 11/21/2020 CHIEF COMPLAINT: Back pain. HISTORY OF PRESENT ILLNESS: As you know, the patient is a 75-year-old male, [facility] by [facility] for chronic low back pain. He returns today in followup visit requesting a lumbar epidural injection under fluoroscopic guidance and to address medication management concerns. The patient has been attempting to fill his hydrocodone medications in his town, but is having difficulty with his pharmacies, as they either do not understand prescriptions or are unwilling to provide the prescriptions to the patient. He returns to receive written prescriptions for these medications. He is planning to move his pharmacy, but is also returning to undergo lumbar epidural injection. ALLERGIES: No known drug allergies. CURRENT MEDICATIONS: Hydrocodone, tramadol, diclofenac, citalopram, lisinopril, and metformin. SOCIAL HISTORY: The patient denies tobacco, alcohol, IV, or illicit drug use. He is unaccompanied today. IMAGING: No new imaging available. PHYSICAL EXAMINATION: VITAL SIGNS: Blood pressure 130/66, pulse is 78, respiratory rate 16 and unlabored. The patient 98% on room air. Height 5 feet 6 inches tall, weight 162 pounds, BMI calculated 26.2. GENERAL: Well-developed, well-nourished, well-hydrated, 75-year-old male appearing stated age, placing current pain score at 8/10. HEENT: Normocephalic, atraumatic. Pupils equal, round and reactive. The patient is wearing a mask in compliance with COVID-19 regulations. EXTREMITIES: Show no clubbing, no cyanosis, no edema. MUSCULOSKELETAL: The patient has tenderness to palpation over the right lower thoracic and upper lumbar area, similar distribution of his previous evaluation. He is experiencing some low back pain as well with radiation to the right buttock. Seated straight leg raising is negative. Supine straight leg raising negative. ASSESSMENT: [address] [address] PAIN MANAGEMENT CONSULTATION Name: DEE JOE Room #: REG GERALD Hutchison#: [id number] Admission: 11/21/20 Attend Phys: Yovani Gonzalez DO Discharge: Date of : 49 Report #: [id number] 1. Lumbosacral spondylosis. 2. Facet arthropathy of the lumbar spine. 3. Failed lumbar spine surgery. 4. Chronic lumbar radiculopathy. PLAN: 1. The patient returns today in followup visit indicating that he is having difficulty with his pharmacy in his [place] town of [place], as they will not fill his medications due to workmen's compensation coverage. He had to switch his pharmacy. He switched to another pharmacy, which apparently cannot or does not understand how to read a prescription and has contacted our clinic multiple times with questions in regards to a very simple prescription of hydrocodone four times a day p.r.n. pain. He returns so that we can provide him prescriptions in written form, so that he can find a new pharmacy to fill his medication management. We have agreed to provide the patient with 2 months' worth of medication. He was given a prescription of hydrocodone/acetaminophen 10/325 one tab every 6 hours p.r.n. for pain, #120, releasing today and 4 weeks from today. He was given 2 written prescriptions indicating as such. 2. The patient was provided refill prescription of his diclofenac sodium 50 mg dose one tab p.o. b.i.d. I have given him #60 tablets, releasing today with one refill, 2 months' worth of medication. 3. The patient has requested a lumbar epidural injection under fluoroscopic guidance. He reports good efficacy with this injection. We have advised him of the risks and benefits of the procedure. He states he understood and wished to proceed. 4. The patient and I did discuss that his ongoing pain involving the upper lumbar areas is likely due to a failure of the fusion level just below, which is causing some significant facet arthropathy with any kind of movement. He may ultimately have to extend his fusion to the level below to discontinue the movement in the area and improve overall pain. I have advised him to follow up with his surgeon in regards to this issue. We did discuss the possibility of having him referred to discuss Vertiflex procedure, which is a percutaneous fusion device, or he can look towards more traditional surgical fusion. 5. We will plan to see the patient back in followup visit in 2 months for medication management. PROCEDURE NOTE DESCRIPTION OF PROCEDURE: L3-L4 lumbar epidural steroid injection under fluoroscopic guidance. After obtaining written consent, the patient was taken back to fluoroscopy suite, placed in prone position with pillow under abdomen to decrease lumbar lordosis. Skin overlying the lumbosacral area was prepped and draped in aseptic fashion. The L3-L4 vertebral interspace was identified by AP fluoroscopy. Skin and subcutaneous tissue overlying target site of injection were anesthetized [address] [address] PAIN MANAGEMENT CONSULTATION Name: DEE JOE Room #: REG CLI [facility]#: [id number] Admission: 11/21/20 Attend Phys: Yovani Gonzalez DO Discharge: Date of : 49 Report #: [id number] with 3 mL of 1% lidocaine. A 20-gauge 3-1/2 inch Tuohy needle was advanced under fluoroscopic guidance towards the epidural space using a right paramedian approach. The epidural space identified using loss of resistance to air technique. After negative aspiration for heme or cerebrospinal fluid, 1 mL of Omnipaque injected. A lumbar epidurogram was confirmed using both AP and lateral fluoroscopy. After negative aspiration for heme or cerebrospinal fluid, 5 mL of a solution containing 2 mL 40 mg per mL, 80 mg total triamcinolone along with 3 mL of lidocaine 1% injected slowly. Needle retracted shelter, flushed with 1 mL of 1% lidocaine and then removed. Sterile bandage placed over injection site. No new motor deficits present in the lower extremity following the procedure. The patient tolerated the procedure well, carefully escorted to recovery room in stable condition. No apparent complications. After meeting discharge criteria, the patient was discharged home. <ELECTRONICALLY SIGNED> By: Yovani Gonzalez DO 11/22/20 1153 [id number] Yovani Gonzalez DO /nt
== END | disposition home or self-care (01) ==
LOC: PAIN 06:57
PROVIDERS: ATTEND Anesthesiology Pain Medicine
DX: M47.26 Other spondylosis with radiculopathy, lumbar region (principal); G89.29 Other chronic pain; M47.27 Other spondylosis with radiculopathy, lumbosacral region; M96.1 Postlaminectomy syndrome, not elsewhere classified; Z98.890 Other specified postprocedural states; Z79.899 Other long term (current) drug therapy; Z87.891 Personal history of nicotine dependence

== ENCOUNTER → 2021-01-17 | Outpatient (CLI) | payer OTHER ==
[~2021-01-17] VITALS: Ht 167.6 cm; Wt 74.5 kg
[~2021-01-17] MED LIST changes: +ULTRAM50 MG PO
[2021-01-17 10:48] VITALS: BP 144/64
--- NOTE | 2021-01-17 10:51 | NUR ---
Pain Clinic Assessment: 1. History of Osteoarthritis: BACK History of Rheumatoid Arthritis: DENIES 2. Height: 5 ft. 6 in. 167.6 cm. Weight: 164.2 lb. oz. 74.481 kg. Patient's BMI: 26.5 3. Vital Signs: BP: 144/64 Pulse: 77 Resp: 18 Temp: 02 Sat: 98 ECG Mon: 4. Pain Intensity: 8 5. Fall Risk: Dizziness: N Needs help standing or walking: N Fallen in the last 3 months: N Fall risk comments: 6. Patient on Blood Thinner: None 7. History of Hypertension: Y 8. Opioid Therapy greater than 6 weeks: Y Opiate Contract Signed: 09/19/17 9. Risk Assessment Tool Provided: LOW RISK 0 10. Functional Assessment Tool: 11. Recreational Drug Use: Never Drug Type: Tobacco Use: Former Smoker Tobacco Type: Amount or Packs/day: How Many Years: Alcohol Use: Yes Frequency: Quant:
--- NOTE | 2021-01-24 16:05 | HPC ---
[facility] [place] [address] PAIN MANAGEMENT CONSULTATION Name: DEE JOE Room #: REG GERALD Anastasia.#: [id number] Admission: 01/17/21 Attend Phys: Yovani Gonzalez DO Discharge: Date of : 49 Report #: [id number] THIS REPORT FOR: cc: [place] - [place] family physician/PCP FAM - No family physician/PCP Yovani Gonzalez DO ~ DOC #: [id number] DATE OF SERVICE: 01/17/2021 REFERRING PHYSICIAN: Destin Thurston M.D. CHIEF COMPLAINT: Back pain. HISTORY OF PRESENT ILLNESS: As you know, the patient is a 75-year-old male returning in followup visit for medication management. He is requesting that we begin the process of having approvals made for a lumbar epidural injection as well. He states a combination of epidural injections and medication management provide good benefit, even though his symptoms continue to return. He returns today in followup visit for refill of medications and to begin the process of scheduling next in the series of lumbar epidural injections. He is placing his current pain score at 8/10. ALLERGIES: No known drug allergies. CURRENT MEDICATIONS: Hydrocodone, tramadol, diclofenac, lisinopril, citalopram, omeprazole. SOCIAL HISTORY: The patient denies tobacco, alcohol or IV or illicit drug use. He is unaccompanied today. IMAGING: No new imaging available. PHYSICAL EXAMINATION: VITAL SIGNS: Blood pressure 144/64, pulse 77, respiratory rate 18 and unlabored. The patient 98% on room air, height 5 feet 6 inches tall, weight 164.2 pounds, BMI calculated 26.5. GENERAL: Well-developed, well-nourished, well-hydrated 75-year-old male, appearing stated age. Pain is rated at 8/10. HEENT: Normocephalic, atraumatic. Pupils are equal and responsive. He is wearing a mask in compliance with COVID-19 regulations. EXTREMITIES: Show no clubbing, no cyanosis, no edema. MUSCULOSKELETAL: The patient's lower extremity strength and upper extremity strength are equal and symmetrical. Seated straight leg raising negative. Supine straight leg raising negative. MAYURI's test is negative. Modified Gaenslen's positive for some axial low back pain, mainly in the mid thoracic area. [address] [address] PAIN MANAGEMENT CONSULTATION Name: DEE JOE Room #: REG GERALD Foster#: [id number] Admission: 01/17/21 Attend Phys: Yovani Gonzalez DO Discharge: Date of : 49 Report #: [id number] ASSESSMENT: 1. Lumbosacral spondylosis. 2. Facet arthropathy, lumbar spine. 3. Failed lumbar spine surgery. 4. Chronic lumbar radiculopathy. PLAN: 1. The patient returns today in followup visit requesting to begin the prior authorization process to undergo a lumbar epidural injection. He states the combination of lumbar epidural injections and medication management worked well for pain control, despite the fact that he continues to report pain level of 8/10. He returns today in followup visit to begin the prior authorization process to undergo a lumbar epidural injection. I advised the patient we will begin the process immediately; once we have authorizations, we will contact him to return to undergo the procedure. 2. The patient has requested refill of medications. He feels medications are working beneficially; the following prescriptions were provided to the patient today. He was advised to safeguard his medications. 3. We reviewed the fact that opiate medications are being used to provide analgesia adequate to support activities of daily living, not attempting to achieve a specific pain score on the 0-10 Visual Analog Scale. The current opiate medications are providing sufficient analgesia to allow the patient to participate in activities of daily living. The patient is not exhibiting any aberrant behavior suggestive of drug diversion. The patient is not having any adverse reactions to medications. The patient is not suffering from daytime somnolence or mental acuity changes. The patient is managing opiate-induced constipation with appropriate [id number] agents and dietary considerations. The patient was counseled on concern for caution with operating a motor vehicle while using opiate medications. A physical exam was performed and the patient's functional status was evaluated. All patients with back pain were advised against the bed rest greater than 4 days and were advised to return to normal activities. Pain score assessment was noted and the treatment plan was reviewed with the patient. All current medications, both prescribed and OTC were reviewed and reconciled on the electronic medical record. Tobacco screening was accomplished and smoking cessation was advised when indicated. BMI was noted and diet/exercise modification was recommended for all patients following outside normal parameters. I reviewed with the patient today their responsibilities to safeguard prescription medications, reviewed their responsibility to utilize medications only as prescribed by the physician. They are to seek and receive pain medications only from 1 physician group ([facility]). They are to use 1 pharmacy and keep the clinic informed if they change pharmacies. Their responsibilities include making followup visits in a timely fashion and to avoid [address] [address] PAIN MANAGEMENT CONSULTATION Name: DEE JOE Room #: REG GERALD Hutchison#: [id number] Admission: 01/17/21 Attend Phys: Yovani Gonzalez DO Discharge: Date of : 49 Report #: [id number] abrupt discontinuation of medication usage. Their responsibilities further include bringing their medications (bottles from the pharmacy with residual pills) to the visit for possible confirmation of pill counts and the patient understands it is their responsibility to submit to random drug screens to ensure both that the medications prescribed are present, and that no other controlled substances are present. All prescriptions provided today were generated electronically. . 4. The patient was provided prescription of hydrocodone 10/325 one tab p.o. q. 6 hours p.r.n. for pain. Given the patient #120 tablets, released today and 4 weeks from today, 2 months' worth of medication. All prescriptions provided to the patient in written form as he did not wish to have the medication sent digitally as he is having difficulty with his pharmacies in his area. 5. The patient was provided prescription of tramadol 50 mg dose 1 tab p.o. b.i.d. p.r.n. pain unresolved by the hydrocodone. He was given #60 tablets, released today and 4 weeks from today, 2 months' worth of medication. Prescription was provided to the patient in written form. 6. The patient was provided refill prescription of his Voltaren gel 1% solution, applied topically up to twice a day. He was given 2 refills. 7. We will see the patient back for followup visit once we have achieved authorization for the patient to undergo a lumbar epidural injection under fluoroscopic guidance. Yovani Gonzalez DO JEJ/HEM <ELECTRONICALLY SIGNED> By: Yovani Gonzalez DO 01/24/21 1605 1003 0351 Yovani Gonzalez DO /nt
== END ==
LOC: PAIN 09:48
PROVIDERS: ATTEND Anesthesiology Pain Medicine
DX: M96.1 Postlaminectomy syndrome, not elsewhere classified (principal); M47.27 Other spondylosis with radiculopathy, lumbosacral region

== ENCOUNTER → 2021-01-31 | Outpatient (CLI) | payer OTHER ==
[~2021-01-31] VITALS: Ht 167.6 cm; Wt 75.3 kg
[2021-01-31 11:13] VITALS: BP 117/60
--- NOTE | 2021-01-31 11:26 | NUR ---
Pain Clinic Assessment: 1. History of Osteoarthritis: BACK History of Rheumatoid Arthritis: DENIES 2. Height: 5 ft. 6 in. 167.6 cm. Weight: 166.0 lb. oz. 75.297 kg. Patient's BMI: 26.8 3. Vital Signs: BP: 117/60 Pulse: 67 Resp: 16 Temp: 02 Sat: 98 ECG Mon: 4. Pain Intensity: 9 5. Fall Risk: Dizziness: N Needs help standing or walking: N Fallen in the last 3 months: N Fall risk comments: 6. Patient on Blood Thinner: None 7. History of Hypertension: Y 8. Opioid Therapy greater than 6 weeks: Y Opiate Contract Signed: 09/19/17 9. Risk Assessment Tool Provided: LOW RISK 0 10. Functional Assessment Tool: 11. Recreational Drug Use: Never Drug Type: Tobacco Use: Former Smoker Tobacco Type: Amount or Packs/day: How Many Years: Alcohol Use: Yes Frequency: Monthly Quant: 1
--- NOTE | 2021-02-07 07:59 | HPC ---
[facility] [place] [address] PAIN MANAGEMENT CONSULTATION Name: DEE JOE Room #: REG CLEnoc M.Favian.#: [id number] Admission: 01/31/21 Attend Phys: Yovani Gonzalez DO Discharge: Date of : 49 Report #: [id number] THIS REPORT FOR: cc: [place] - [place] family physician/PCP FAM - No family physician/PCP Yovani Gonzalez DO ~ DOC #: [id number] DATE OF SERVICE: 01/31/2021 REFERRING PHYSICIAN: Destin Thurston M.D. CHIEF COMPLAINT: Back pain. HISTORY OF PRESENT ILLNESS: As you know, the patient is a 75-year-old male who returns today in followup visit to undergo lumbar epidural injection under fluoroscopic guidance. He reports a combination of epidural injections, medication management, rest and relaxation as well as changes in his daily activity have improved overall pain. He is reporting pain, recurrence today, at the level of 9/10. He returns today to undergo next in the series of lumbar epidural injections under fluoroscopic guidance in hopes of improving pain. The patient denies new injury/trauma or any changes in medical history since his last visit. ALLERGIES: No known drug allergies. CURRENT MEDICATIONS: See chart. SOCIAL HISTORY: The patient denies tobacco, alcohol or IV or illicit drug use. He is unaccompanied today. IMAGING: No new imaging available. PHYSICAL EXAMINATION: VITAL SIGNS: Blood pressure 117/60, pulse 67, respiratory rate 16 and unlabored. The patient 98% on room air. Height 5 feet 6 inches tall, weight 166 pounds, BMI calculated 26.8. GENERAL: Well-developed, well-nourished, well-hydrated 75-year-old male appearing stated age, pain is rated today, 9/10. HEENT: Normocephalic, atraumatic. Pupils are round and responsive. EXTREMITIES: Show no clubbing, no cyanosis. No appreciable edema. MUSCULOSKELETAL: Lower extremity strength is symmetrical, 5/5. Seated straight leg raising negative. Supine straight leg raising negative. Fabere's test is negative. Modified Gaenslen's positive for axial back pain. Ankle clonus negative. [facility] [address] [place] [address] PAIN MANAGEMENT CONSULTATION Name: DEE JOE Room #: REG GERALD Foster#: [id number] Admission: 01/31/21 Attend Phys: Yovani Gonzalez DO Discharge: Date of : 49 Report #: [id number] ASSESSMENT: 1. Lumbosacral spondylosis. 2. Facet arthropathy of the lumbar spine. 3. Failed lumbar spine surgery. 4. Chronic lumbar radiculopathy. PLAN: 1. The patient returns today in followup visit to undergo lumbar epidural injection under fluoroscopic guidance. He states a combination of medications along with injections helped with overall pain. He returns today requesting next in the series. I have advised him of the risks and benefits, states he understood and wished to proceed. 2. No medication changes made at today's visit. The patient will continue current medical therapy as prior prescribed. 3. The patient returns to our clinic on an as needed basis for the next in the series of epidural injections. We will see him back for medication management as previously agreed upon date. DESCRIPTION OF PROCEDURE: L3-L4 interlaminar epidural steroid injection under fluoroscopic guidance. After obtaining written consent, the patient was taken back to fluoroscopy suite, placed in prone position with pillow under abdomen to decrease lumbar lordosis. Skin overlying lumbosacral area prepped and draped in aseptic fashion. The L3-L4 interspace identified by AP fluoroscopy. Skin and subcutaneous tissue overlying target site injection anesthetized with 3 mL 1% lidocaine. A 20 gauge 3-1/2 inch Tuohy needle advanced under fluoroscopic guidance towards the epidural space using a paramedian approach. Epidural space identified using loss of resistance to air technique. After negative aspiration for heme or cerebrospinal fluid, 1 mL of Omnipaque injected. Lumbar epidurogram confirmed using both AP and lateral fluoroscopy. After negative aspiration for heme or cerebrospinal fluid, 5 mL solution containing 2 mL 40 mg per mL, 80 mg total triamcinolone along with 3 mL of lidocaine, 1% injected slowly. The needle was then retracted approximately skilled nursing flushed with 1 mL of 1% lidocaine and then removed. Sterile bandage placed over injection site. No new motor deficits present in lower extremity following procedure. The patient tolerated the procedure well, carefully escorted to recovery room in stable condition. No apparent complications. After meeting discharge criteria, the patient discharged home. Yovani Gonzalez DO [facility] [address] [address] PAIN MANAGEMENT CONSULTATION Name: DEE JOE Room #: REG GERALD Hutchison#: [id number] Admission: 01/31/21 Attend Phys: Yovani Gonzalez DO Discharge: Date of : 49 Report #: [id number] <ELECTRONICALLY SIGNED> By: Yovani Gonzalez DO 02/07/21 0759 0 51 Yovani Gonzalez DO /
== END | disposition home or self-care (01) ==
LOC: PAIN 09:04
PROVIDERS: ATTEND Anesthesiology Pain Medicine
DX: M47.26 Other spondylosis with radiculopathy, lumbar region (principal); M47.27 Other spondylosis with radiculopathy, lumbosacral region; M96.1 Postlaminectomy syndrome, not elsewhere classified; G89.29 Other chronic pain; Z98.890 Other specified postprocedural states; Z79.899 Other long term (current) drug therapy; Z87.891 Personal history of nicotine dependence

== ENCOUNTER → 2021-03-14 | Outpatient (CLI) | payer OTHER ==
[~2021-03-14] VITALS: Ht 167.6 cm; Wt 74.2 kg
--- NOTE | ~2021-03-14 | HPC ---
[facility] [place] [address] PAIN MANAGEMENT CONSULTATION Name: DEE JOE Room #: REG GERALD Anastasia.#: [id number] Admission: 03/14/21 Attend Phys: Yovani Gonzalez DO Discharge: Date of : 49 Report #: [id number] THIS REPORT FOR: cc: [place] - Kiara family physician/PCP FAM - No family physician/PCP Yovani Gonzalez DO ~ DOC #: [id number] cc: MD Yovani Bolton DO DATE OF SERVICE: 03/14/2021 REFERRING PHYSICIAN: Destin Thurston M.D. CHIEF COMPLAINT: Low back pain. HISTORY OF PRESENT ILLNESS: As you know, the patient is a 75-year-old male returning in followup visit requesting refill of medications. He feels medications are working beneficially for pain control. He has also requested to begin the process of authorization to undergo next in the series of lumbar epidural injection as he has had a recurrence of symptoms, he is now placing pain score at 8/10. He denies injury or trauma, but states he has been active at home doing all kinds of activities. He states that no specific one activity exacerbates the symptoms. He reports no side effects to medication at this time. ALLERGIES: No known drug allergies. CURRENT MEDICATIONS: Hydrocodone, tramadol, diclofenac, lisinopril, citalopram, omeprazole. SOCIAL HISTORY: The patient denies tobacco, alcohol or IV or illicit drug use. He is unaccompanied at today's visit. PHYSICAL EXAMINATION: VITAL SIGNS: Blood pressure 137/65, pulse is 70, respiratory rate 14 and unlabored. The patient 100% on room air. Height 5 feet 6 inches tall, weight 163.6 pounds, BMI calculated 26.4. GENERAL: Well-developed, well-nourished, well-hydrated 75-year-old male appearing stated age, pain is rated around 8/10. HEENT: Normocephalic, atraumatic. Pupils equal and round and responsive. He is wearing mask in compliance with COVID-19 regulations. EXTREMITIES: Show once again no clubbing, no cyanosis, no edema. There is noted some ecchymosis on the forearms. MUSCULOSKELETAL: Lower extremity strength is symmetrical 5/5 intact to light touch from L1 through S2 dermatomes. Seated straight leg raising negative. Supine straight leg raising negative. Fabere's test is negative. [facility] [address] [place] [address] PAIN MANAGEMENT CONSULTATION Name: DEE JOE Room #: REG CLEnoc Foster#: [id number] Admission: 03/14/21 Attend Phys: Yovani Gonzalez DO Discharge: Date of : 47 Report #: [id number] Gaenslen is positive for some axial low back pain. Well healed surgical scar in the lumbar region. ASSESSMENT: 1. Chronic low back pain. 2. Lumbosacral spondylosis. 3. Facet arthropathy, lumbar spine. 4. Failed lumbar spine surgery. 5. Chronic intractable pain. PLAN: 1. The patient returns today in followup visit requesting refill of medications. He is reporting good efficacy with the medication. No side effects. He is experiencing some ecchymosis in the forearms, which might be related to the use of his consistent nonsteroidal anti-inflammatory. We discussed this with the patient today. He has requested refills of all the medications. He will determine whether or not he wants to come off the diclofenac oral medication. If he does, I will recommend at least a 2-week timeframe off this medication to determine if his bruising on the forearms improves, this could be more related to just friable tissue secondary to age, though we cannot fully rule out nonsteroidal anti-inflammatory. If he wishes to do so, discontinue for 2 weeks. 2. The patient was provided prescription of hydrocodone/acetaminophen 10/325, one tab p.o. q. 6 hours p.r.n. for pain, given the patient #120 release today and 4 weeks from today 2 months' worth of medication. The patient was advised to take the medication as directed, not to use the medication prophylactically. 3. We reviewed the fact that opiate medications are being used to provide analgesia adequate to support activities of daily living, not attempting to achieve a specific pain score on the 0-10 Visual Analog Scale. The current opiate medications are providing sufficient analgesia to allow the patient to participate in activities of daily living. The patient is not exhibiting any aberrant behavior suggestive of drug diversion. The patient is not having any adverse reactions to medications. The patient is not suffering from daytime somnolence or mental acuity changes. The patient is managing opiate-induced constipation with appropriate yduk-zxf-bqvghyi agents and dietary considerations. The patient was counseled on concern for caution with operating a motor vehicle while using opiate medications. A physical exam was performed and the patient's functional status was evaluated. All patients with back pain were advised against the bed rest greater than 4 days and were advised to return to normal activities. Pain score assessment was noted and the treatment plan was reviewed with the patient. All current medications, both prescribed and OTC were reviewed and reconciled on the electronic medical record. Tobacco screening was accomplished and smoking cessation was advised when indicated. BMI was noted and diet/exercise modification was recommended for all patients following outside normal [address] [address] PAIN MANAGEMENT CONSULTATION Name: DEE JOE Room #: REG [facility] Donna.#: [id number] Admission: 03/14/21 Attend Phys: Yovani Gonzalez DO Discharge: Date of : 47 Report #: [id number] parameters. I reviewed with the patient today their responsibilities to safeguard prescription medications, reviewed their responsibility to utilize medications only as prescribed by the physician. They are to seek and receive pain medications only from 1 physician group ( [facility]). They are to use 1 pharmacy and keep the clinic informed if they change pharmacies. Their responsibilities include making followup visits in a timely fashion and to avoid abrupt discontinuation of medication usage. Their responsibilities further include bringing their medications (bottles from the pharmacy with residual pills) to the visit for possible confirmation of pill counts and the patient understands it is their responsibility to submit to random drug screens to ensure both that the medications prescribed are present, and that no other controlled substances are present. All prescriptions provided today were generated electronically. 4. The patient was provided prescription of tramadol 50 mg dose 1 tab p.o. b.i.d. Mild to moderate pain. Given the patient 60 tablets with 1 refill. The patient was advised not to take the tramadol along with hydrocodone. He is to take these only for breakthrough pain is noted. 5. I provided refill prescription of diclofenac sodium 50 mg dose 1 tab p.o. b.i.d., #60 tablets. I have advised the patient to discontinue its use for 2 weeks if he wishes to determine if the ecchymosis in his forearm is due to that issue. He will determine whether or not he wants to discontinue the medication. If he does and his ecchymosis improved, stay off nonsteroidal anti-inflammatories. 6. The patient was provided refill prescription of his Voltaren gel 1% solution applied topically up to 3 times to 4 times a day, was given 3 tubes two refills, 3 months' worth of medication. 7. The patient has requested authorization for him to undergo a lumbar epidural injection under fluoroscopic guidance. We will begin that authorization process as quickly as possible. Once the authorization has been completed, we will have the patient return to undergo next in the series of lumbar epidural injections. DO JERAMIE Clark/VELIA/LEESA By: [id number] Yovani Gonzalez DO /nt
[2021-03-14 10:13] VITALS: BP 137/65
--- NOTE | 2021-03-14 10:32 | NUR ---
Pain Clinic Assessment: 1. History of Osteoarthritis: BACK History of Rheumatoid Arthritis: DENIES 2. Height: 5 ft. 6 in. 167.6 cm. Weight: 163.6 lb. oz. 74.208 kg. Patient's BMI: 26.4 3. Vital Signs: BP: 137/65 Pulse: 70 Resp: 14 Temp: 02 Sat: 100 ECG Mon: 4. Pain Intensity: 8 5. Fall Risk: Dizziness: N Needs help standing or walking: N Fallen in the last 3 months: N Fall risk comments: 6. Patient on Blood Thinner: None 7. History of Hypertension: Y 8. Opioid Therapy greater than 6 weeks: Y Opiate Contract Signed: 09/19/17 9. Risk Assessment Tool Provided: LOW RISK 0 10. Functional Assessment Tool: 11. Recreational Drug Use: Never Drug Type: Tobacco Use: Former Smoker Tobacco Type: Amount or Packs/day: How Many Years: Alcohol Use: Yes Frequency: Weekly Quant: 3
== END ==
LOC: PAIN 07:04
PROVIDERS: ATTEND Anesthesiology Pain Medicine
DX: M47.817 Spondylosis without myelopathy or radiculopathy, lumbosacral region (principal); G89.4 Chronic pain syndrome; Z79.899 Other long term (current) drug therapy

== ENCOUNTER → 2021-04-04 | Outpatient (CLI) | payer OTHER ==
[~2021-04-04] VITALS: Ht 167.6 cm; Wt 74.6 kg
[2021-04-04 10:44] VITALS: BP 129/67
--- NOTE | 2021-04-04 11:00 | NUR ---
Pain Clinic Assessment: 1. History of Osteoarthritis: BACK History of Rheumatoid Arthritis: DENIES 2. Height: 5 ft. 6 in. 167.6 cm. Weight: 164.4 lb. oz. 74.571 kg. Patient's BMI: 26.5 3. Vital Signs: BP: 129/67 Pulse: 70 Resp: 16 Temp: 02 Sat: 97 ECG Mon: 4. Pain Intensity: 9 5. Fall Risk: Dizziness: N Needs help standing or walking: N Fallen in the last 3 months: N Fall risk comments: 6. Patient on Blood Thinner: None 7. History of Hypertension: Y 8. Opioid Therapy greater than 6 weeks: Y Opiate Contract Signed: 09/19/17 9. Risk Assessment Tool Provided: LOW RISK 0 10. Functional Assessment Tool: 11. Recreational Drug Use: Never Drug Type: Tobacco Use: Former Smoker Tobacco Type: Amount or Packs/day: How Many Years: Alcohol Use: Yes Frequency: Quant:
--- NOTE | 2021-04-10 08:00 | HPC ---
[facility] [place] [address] PAIN MANAGEMENT CONSULTATION Name: DEE JOE Room #: REG GERALD Oconnor.#: [id number] Admission: 04/04/21 Attend Phys: Yovani Gonzalez DO Discharge: Date of : 47 Report #: [id number] THIS REPORT FOR: cc: [place] - No family physician/PCP FAM - No family physician/PCP Yovani Gonzalez DO ~ DOC #: [id number] cc: MD Yovani Bolton DO DATE OF SERVICE: 04/04/2021 REFERRING PHYSICIAN: Dr. Nacho Thurston. CHIEF COMPLAINT: Low back pain. HISTORY OF PRESENT ILLNESS: As you know, the patient is a 75-year-old male returning today in followup visit, requesting to undergo lumbar epidural injection under fluoroscopic guidance to address low back and lower extremity symptoms. He places most of the pain on the right side. He is placing his current pain score at 6/10. He denies new injury or trauma that may have led to symptom recurrence. He returns today for a lumbar epidural injection under fluoroscopic guidance. ALLERGIES: No known drug allergies. CURRENT MEDICATIONS: See chart. SOCIAL HISTORY: The patient denies tobacco, alcohol, or IV or illicit drug use. He is unaccompanied on today's visit. IMAGING: No new imaging available. PHYSICAL EXAMINATION: VITAL SIGNS: Blood pressure 129/67, pulse is 70, respiratory rate 16 and unlabored. The patient is 97% on room air. Height 5 feet 6 inches tall, weight 164.4 pounds. GENERAL: Well-developed, well-nourished, well-hydrated 75-year-old male appearing stated age, pain is rated up to 6/10. HEENT: Normocephalic, atraumatic. Pupils are equal, round and responsive. He is wearing corrective eyewear. He is also wearing a mask in compliance with COVID-19 regulations. EXTREMITIES: Show no clubbing, no cyanosis, and no appreciable edema. MUSCULOSKELETAL: Lower extremity strength equal and symmetrical 5/5. Seated straight leg raising is negative. Supine straight leg raising is negative. Fabere's test is negative. Modified Gaenslen's positive for axial low back pain. Muscle bulk and tone is equal and symmetrical on lower extremities. [address] [address] PAIN MANAGEMENT CONSULTATION Name: DEE JOE Room #: REG CL M.Favian.#: [id number] Admission: 04/04/21 Attend Phys: Yovani Gonzalez DO Discharge: Date of : 47 Report #: [id number] tendon reflexes are diminished but symmetrical at patella and Achilles. ASSESSMENT: 1. Failed lumbar spine surgery. 2. Lumbosacral spondylosis. 3. Facet arthropathy of the lumbar spine. 4. Chronic intractable pain. PLAN: 1. The patient returns today in followup visit requesting to undergo lumbar epidural injection under fluoroscopic guidance. The patient reports improvement in symptoms about 60-70% with the epidural injection provided in the last visit. Unfortunately, his symptoms have reoccurred. He denies new injury or trauma. He returns today to undergo lumbar epidural injection under fluoroscopic guidance. He has been advised of risks and benefits of this procedure. These risks include but are not necessarily limited to bleeding, bruising, infection, worsening pain, no relief of pain, also risk of temporary or permanent muscle weakness, temporary or permanent nerve damage, possible paralysis and . The patient states he understood and wished to proceed. 2. No medication changes made at today's visit. The patient will continue current medical therapy as prior prescribed. 3. We will plan to see the patient back in followup visit on an as needed basis for the next in the series of lumbar epidural injections. We are hopeful the patient will see good and prolonged benefit with today's procedure. PROCEDURE NOTE DESCRIPTION OF PROCEDURE: L3-L4 right parasagittal epidural injection under fluoroscopic guidance. After obtaining written consent, the patient was taken back to fluoroscopy suite, placed in prone position with pillow under abdomen to decrease lumbar lordosis. Skin overlying lumbosacral area then prepped and draped in aseptic fashion. The L3-L4 vertebral interspace identified by AP fluoroscopy. Skin and subcutaneous tissue overlying target site injection anesthetized with 3 mL 1% lidocaine. A 20 gauge 3-1/2 inch Tuohy needle advanced under fluoroscopic guidance towards the epidural space using a parasagittal approach. Epidural space identified using loss of resistance to air technique. After negative aspiration for heme or cerebrospinal fluid, 1 mL of Omnipaque injected. Lumbar epidurogram was confirmed using both AP and lateral fluoroscopy. After negative aspiration for heme or cerebrospinal fluid, 5 mL of solution containing 2 mL, 40 mg/mL, 80 mg total triamcinolone along with 3 mL of lidocaine 1% injected slowly. Needle retracted longterm, flushed with 1 mL of 1% lidocaine, then removed. Sterile bandage placed over injection site. No new motor deficits present in the lower [facility] [address] [place] [address] PAIN MANAGEMENT CONSULTATION Name: DEE JOE Room #: REG Enoc Hutchison#: [id number] Admission: 04/04/21 Attend Phys: Yovani Gonzalez DO Discharge: Date of : 47 Report #: [id number] extremities following procedure. The patient tolerated the procedure well, carefully escorted to recovery room in stable condition. No apparent complications. After meeting discharge criteria, the patient discharged home. Yovani Gonzalez DO JEJ/MUK <ELECTRONICALLY SIGNED> By: Yovani Gonzalez DO 04/10/21 0800 1023 11 Yovani Gonzalez DO /nt
== END | disposition home or self-care (01) ==
LOC: PAIN 08:56
PROVIDERS: ATTEND Anesthesiology Pain Medicine
DX: M54.5 Low back pain (principal); M47.896 Other spondylosis, lumbar region; M47.897 Other spondylosis, lumbosacral region; M96.1 Postlaminectomy syndrome, not elsewhere classified; G89.29 Other chronic pain; Z98.890 Other specified postprocedural states; Z79.899 Other long term (current) drug therapy; Z79.891 Long term (current) use of opiate analgesic

== ENCOUNTER → 2021-05-16 | Outpatient (CLI) | payer OTHER ==
[~2021-05-16] VITALS: Ht 167.6 cm; Wt 74.9 kg
[2021-05-16 12:15] VITALS: BP 130/78
--- NOTE | 2021-05-16 12:32 | NUR ---
Pain Clinic Assessment: 1. History of Osteoarthritis: BACK History of Rheumatoid Arthritis: DENIES 2. Height: 5 ft. 6 in. 167.6 cm. Weight: 165.2 lb. oz. 74.934 kg. Patient's BMI: 26.7 3. Vital Signs: BP: 130/78 Pulse: 79 Resp: 16 Temp: 02 Sat: 97 ECG Mon: 4. Pain Intensity: 10 5. Fall Risk: Dizziness: N Needs help standing or walking: N Fallen in the last 3 months: N Fall risk comments: 6. Patient on Blood Thinner: None 7. History of Hypertension: Y 8. Opioid Therapy greater than 6 weeks: Y Opiate Contract Signed: 09/19/17 9. Risk Assessment Tool Provided: LOW RISK 0 10. Functional Assessment Tool: 11. Recreational Drug Use: Never Drug Type: Tobacco Use: Former Smoker Tobacco Type: Amount or Packs/day: How Many Years: Alcohol Use: No Frequency: Quant:
--- NOTE | 2021-05-23 10:47 | HPC ---
[facility] [address] [address] PAIN MANAGEMENT CONSULTATION Name: DEE JOE Room #: REG GERALD Foster#: [id number] Admission: 05/16/21 Attend Phys: Yovani Gonzalez DO Discharge: Date of : 47 Report #: [id number] THIS REPORT FOR: cc: FAM - No family physician/PCP FAM - No family physician/PCP Yovani Gonzalez DO ~ cc: Referring Physician DATE OF SERVICE: 05/16/2021 CHIEF COMPLAINT: Low back pain. HISTORY OF PRESENT ILLNESS: As you know, the patient is a 75-year-old male with longstanding history of lumbar pain involving mainly the axial spine. He has undergone epidural injections under fluoroscopic guidance with improvement in symptoms. He continues to require the use of opioid medications for pain control. He returns today in followup visit requesting refill of medications. He is placing his current pain score 10/10. He reported an 85% improvement in overall pain with the epidural injection, lasting for about a month with recurrence of symptoms. He has recently run out of his medications and has been doing fairly poorly. He returns requesting refill on medications at this appointment. ALLERGIES: No known drug allergies. CURRENT MEDICATIONS: Hydrocodone, tramadol, diclofenac, citalopram, lisinopril, metformin. SOCIAL HISTORY: The patient denies tobacco, alcohol or IV or illicit drug use. He is unaccompanied today. IMAGING: No new imaging available. PHYSICAL EXAMINATION: VITAL SIGNS: Blood pressure 130/78, pulse 79, respiratory rate 16 and unlabored. The patient 97% on room air. Height 5 feet 6 inches tall, weight 165.2 pounds, BMI calculated 26.7. GENERAL: Well-developed, well-nourished, well-hydrated 75-year-old male appearing stated age, pain is rated up to 10/10. HEENT: Normocephalic, atraumatic. Pupils equal, round and responsive. He is wearing a mask in compliance with COVID-19 regulations. EXTREMITIES: Show no clubbing, no cyanosis, no edema. MUSCULOSKELETAL: Lower extremity strength remains symmetrical 5/5. Intact to light touch from L1 through S2 dermatomes. There is a well-healed surgical scar over the lumbar spine. Seated straight leg raising negative. Supine straight leg raising negative. MAYURI test is negative. Modified Gaenslen's positive for some axial low back pain. [address] [address] PAIN MANAGEMENT CONSULTATION Name: DEE JOE Room #: REG CLI Foster#: [id number] Admission: 05/16/21 Attend Phys: Yovani Gonzalez DO Discharge: Date of : 49 Report #: [id number] ASSESSMENT: 1. Chronic low back pain. 2. Lumbosacral spondylosis. 3. Facet arthropathy of lumbar spine. 4. Failed lumbar spine surgery. 5. Chronic intractable pain. PLAN: 1. The patient returns today in followup visit requesting refill of medications. He reports that he does well with the medication though the patient is complaining of pain score 10/10 today. He is attempting to make an appointment back to our clinic for an epidural injection, but at this point needs refills of his current medications. He is denying side effects to medication including sleepiness, disorientation, confusion, mental slowing. He wishes to gain refills of medications today. 2. We reviewed the fact that opiate medications are being used to provide analgesia adequate to support activities of daily living, not attempting to achieve a specific pain score on the 0-10 Visual Analog Scale. The current opiate medications are providing sufficient analgesia to allow the patient to participate in activities of daily living. The patient is not exhibiting any aberrant behavior suggestive of drug diversion. The patient is not having any adverse reactions to medications. The patient is not suffering from daytime somnolence or mental acuity changes. The patient is managing opiate-induced constipation with appropriate detn-lpi-egwkgnu agents and dietary considerations. The patient was counseled on concern for caution with operating a motor vehicle while using opiate medications. A physical exam was performed and the patient's functional status was evaluated. All patients with back pain were advised against the bed rest greater than 4 days and were advised to return to normal activities. Pain score assessment was noted and the treatment plan was reviewed with the patient. All current medications, both prescribed and OTC were reviewed and reconciled on the electronic medical record. Tobacco screening was accomplished and smoking cessation was advised when indicated. BMI was noted and diet/exercise modification was recommended for all patients following outside normal parameters. I reviewed with the patient today their responsibilities to safeguard prescription medications, reviewed their responsibility to utilize medications only as prescribed by the physician. They are to seek and receive pain medications only from 1 physician group ( [facility]). They are to use 1 pharmacy and keep the clinic informed if they change pharmacies. Their responsibilities include making followup visits in a timely fashion and to avoid abrupt discontinuation of medication usage. Their responsibilities further include bringing their medications (bottles from the pharmacy with residual [facility] [address] [place] [address] PAIN MANAGEMENT CONSULTATION Name: DEE JOE Room #: REG GERALD Hutchison#: [id number] Admission: 05/16/21 Attend Phys: Yovani Gonzalez DO Discharge: Date of : 47 Report #: [id number] pills) to the visit for possible confirmation of pill counts and the patient understands it is their responsibility to submit to random drug screens to ensure both that the medications prescribed are present, and that no other controlled substances are present. All prescriptions provided today were generated electronically. 3. The patient was provided prescription of hydrocodone 10/325 one tab p.o. q. 6 hours p.r.n. for pain. Given the #120 to release today, 4 weeks from today, 2 months' worth of medication. Prescriptions sent via e-scribe to local pharmacy. 4. The patient was provided prescription of tramadol 50 mg dose 1 tab p.o. b.i.d. p.r.n. mild to moderate pain, #60 with 1 refill, 2 months' worth of medication. Prescriptions sent via e-scribe to local pharmacy. 5. The patient was provided a refill prescription of diclofenac 50 mg dose 1 tab p.o. b.i.d., #60 with 1 refill, 2 months' worth of medication. Prescriptions sent via e-scribe to local pharmacy. 6. The patient was provided prescription of Voltaren gel 1% solution, 3 tubes 100 grams each, 2 refills, prescription sent via e-scribe to local pharmacy. 7. We plan to see the patient back in followup visit on an as needed basis for the next in the series of lumbar epidural injections. Otherwise, we will see him back in 2 months for medication management. <ELECTRONICALLY SIGNED> By: Yovani Gonzalez DO 05/23/21 1047 1152 [id number] Yovani Gonzalez DO /miguel
== END ==
LOC: PAIN 12:03
PROVIDERS: ATTEND Anesthesiology Pain Medicine
DX: G89.4 Chronic pain syndrome (principal); M47.817 Spondylosis without myelopathy or radiculopathy, lumbosacral region; Z79.899 Other long term (current) drug therapy; Z79.891 Long term (current) use of opiate analgesic

== ENCOUNTER → 2021-07-11 | Outpatient (CLI) | payer OTHER ==
[~2021-07-11] VITALS: Ht 167.6 cm; Wt 74.4 kg
--- NOTE | ~2021-07-11 | HPC ---
[facility] [place] [address] PAIN MANAGEMENT CONSULTATION Name: DEE JOE Room #: REG GERALD LyLalitFavianLalit#: [id number] Admission: 07/11/21 Attend Phys: Yovani Gonzalez DO Discharge: Date of : 49 Report #: [id number] THIS REPORT FOR: cc: [place] - [place]ara family physician/PCP FAM - No family physician/PCP Yovani Gonzalez DO ~ cc: Destin Thurston MD DATE OF SERVICE: 07/11/2021 CHIEF COMPLAINT: Back pain. HISTORY OF PRESENT ILLNESS: As you know, the patient is a 75-year-old male with longstanding history of lumbar pain that is mainly axial in nature. He has undergone epidural injections under fluoroscopic guidance after his unilateral fusion for ongoing pain issues. He also takes oral medications for pain control. He returns today in followup visit requesting oral medication refills. He is placing his current pain score is 9/10. Despite the reports of ongoing pain issues, he is extremely active at home. 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 He states he exacerbates symptoms periodically and requiring injections for which he wants to obtain approvals as quickly as possible for that procedure, but also wants to refill his medications. He denies side effects to medication at this time. ALLERGIES: No known drug allergies. CURRENT MEDICATIONS: Hydrocodone, tramadol, diclofenac, citalopram, lisinopril, metformin. SOCIAL HISTORY: The patient denies tobacco, alcohol or IV or illicit drug use. He is unaccompanied at today's visit. IMAGING: No new imaging available. PHYSICAL EXAMINATION: VITAL SIGNS: Blood pressure 120/75, pulse 78, respiratory rate 16 and unlabored. The patient is 97% on room air. Height 5 feet 6 inches tall, weight 264 pounds, BMI calculated 26.5. GENERAL: Well-developed, well-nourished, well-hydrated 75-year-old male appearing stated age, pain is rated today 9/10. HEENT: Normocephalic, atraumatic. Pupils equal, round and responsive. He is wearing a mask in compliance with COVID-19 regulations. LUNGS: Appear clear. No wheezes, rhonchi or rales. He is able to complete sentences without difficulty. EXTREMITIES: Show no clubbing, no cyanosis and no edema. MUSCULOSKELETAL: Lower extremity strength equal and symmetrical 5/5. Upper extremity strength equal and symmetrical 5/5. Muscle bulk and tone is equal and [address] [address] PAIN MANAGEMENT CONSULTATION Name: DEE JOE Room #: REG [facility].#: [id number] Admission: 07/11/21 Attend Phys: Yovani Gonzalez DO Discharge: Date of : 49 Report #: [id number] symmetrical in lower extremity and upper extremities. There is a well-healed surgical scar over the lumbar spine consistent with the unilateral fusion. Straight leg raising is negative, both in the supine and seated position. Job's test is negative. Modified Gaenslen's positive for axial low back pain. ASSESSMENT: 1. Chronic low back pain. 2. Lumbosacral spondylosis. 3. Facet arthropathy of lumbar spine. 4. Failed lumbar spine surgery. 5. Chronic intractable pain. PLAN: 1. The patient returns today in followup visit requesting refill on medications. He feels medications are working beneficially. He is denying side effects of sleepiness, disorientation, confusion, mental slowing with the use of the therapy. Overall, the patient states that the combination of medications along with epidural injections allow him to continue to participate in daily activities at the level he wishes to participate. 2. The patient was provided a refill prescription of hydrocodone 10/325 one tab p.o. q. 6 hours p.r.n. pain. I have given the patient #120 with releases of today and 4 weeks from today 2 months' worth of medication. The patient was advised the amount of hydrocodone he is taking equates to approximately 40 morphine equivalents a day, which puts him in a moderate risk for issues with opioid medication. 3. The patient was provided a prescription of tramadol 50 mg dose 1 tab p.o. b.i.d. p.r.n. pain, unresolved with hydrocodone. He was given this prescription of #60 with 1 refill, 2 months' worth of medication. Prescriptions sent via e-scribe to local pharmacy. 4. The patient was provided a refill prescription of diclofenac sodium 50 mg dose 1 tab p.o. b.i.d., #60 with 1 refill, 2 months' worth of medication. Prescriptions sent via e-scribe to local pharmacy. 5. The patient was provided a refill prescription of his Voltaren gel, apply 3 tubes per month. He was given this with 2 refills, 3 months worth of medication. 6. Plan is to see the patient back in followup visit once we have achieved authorization for the patient to undergo a lumbar epidural injection. We are hopeful we can receive this authorization quickly and have the patient return to undergo the procedure. We have tentatively set him an appointment for next Friday for that injection. The patient is agreeable with that plan. By: [id number] Yovani Gonzalez DO /miguel
[2021-07-11 10:19] VITALS: BP 128/75
--- NOTE | 2021-07-11 10:40 | NUR ---
Pain Clinic Assessment: 1. History of Osteoarthritis: BACK History of Rheumatoid Arthritis: DENIES 2. Height: 5 ft. 6 in. 167.6 cm. Weight: 164.0 lb. oz. 74.390 kg. Patient's BMI: 26.5 3. Vital Signs: BP: 128/75 Pulse: 78 Resp: 16 Temp: 02 Sat: 97 ECG Mon: 4. Pain Intensity: 9 5. Fall Risk: Dizziness: N Needs help standing or walking: N Fallen in the last 3 months: N Fall risk comments: 6. Patient on Blood Thinner: None 7. History of Hypertension: Y 8. Opioid Therapy greater than 6 weeks: Y Opiate Contract Signed: 09/19/17 9. Risk Assessment Tool Provided: LOW RISK 0 10. Functional Assessment Tool: 11. Recreational Drug Use: Never Drug Type: Tobacco Use: Former Smoker Tobacco Type: Amount or Packs/day: How Many Years: Alcohol Use: Yes Frequency: Weekly Quant: 2
== END ==
LOC: PAIN 07:01
PROVIDERS: ATTEND Anesthesiology Pain Medicine
DX: G89.29 Other chronic pain (principal); M47.817 Spondylosis without myelopathy or radiculopathy, lumbosacral region; M47.816 Spondylosis without myelopathy or radiculopathy, lumbar region

== ENCOUNTER → 2021-07-18 | Outpatient (CLI) | payer OTHER ==
[~2021-07-18] VITALS: Ht 167.6 cm; Wt 74.4 kg
[2021-07-18 11:04] VITALS: BP 110/59
--- NOTE | 2021-07-18 11:11 | NUR ---
Pain Clinic Assessment: 1. History of Osteoarthritis: BACK History of Rheumatoid Arthritis: DENIES 2. Height: 5 ft. 6 in. 167.6 cm. Weight: 164.0 lb. oz. 74.390 kg. Patient's BMI: 26.5 3. Vital Signs: BP: 110/59 Pulse: 72 Resp: 14 Temp: 02 Sat: 97 ECG Mon: 4. Pain Intensity: 8 5. Fall Risk: Dizziness: N Needs help standing or walking: N Fallen in the last 3 months: N Fall risk comments: 6. Patient on Blood Thinner: None 7. History of Hypertension: Y 8. Opioid Therapy greater than 6 weeks: Y Opiate Contract Signed: 09/19/17 9. Risk Assessment Tool Provided: LOW RISK 0 10. Functional Assessment Tool: 11. Recreational Drug Use: Never Drug Type: Tobacco Use: Former Smoker Tobacco Type: Amount or Packs/day: How Many Years: Alcohol Use: Yes Frequency: Quant:
--- NOTE | 2021-07-24 13:27 | HPC ---
[facility] [place] [address] [place] [address] PAIN MANAGEMENT CONSULTATION Name: DEE JOE Room #: REG GERALD OconnorLalit#: [id number] Admission: 07/18/21 Attend Phys: Yovani Gonzalez DO Discharge: Date of : 47 Report #: [id number] THIS REPORT FOR: cc: FAM - No family physician/PCP FAM - No family physician/PCP Yovani Gonzalez DO ~ cc: Destin Thurston MD DATE OF SERVICE: 07/18/2021 REFERRING PHYSICIAN: Dr. Destin Thursotn. CHIEF COMPLAINT: Back pain. HISTORY OF PRESENT ILLNESS: As you know, the patient is a 75-year-old male with longstanding history of lumbar pain, mainly axial in nature. He returns today in followup visit having approvals to undergo lumbar epidural injection under fluoroscopic guidance to address ongoing pain. He places his current pain score at 8/10. He has had no injury or trauma that may have led to symptom reoccurrence. He is continuing to take oral medications with some benefit. He returns today requesting a lumbar epidural injection under fluoroscopic guidance to address 8/10 pain. ALLERGIES: No known drug allergies. CURRENT MEDICATIONS: Hydrocodone, tramadol, diclofenac, citalopram, lisinopril, metformin. SOCIAL HISTORY: The patient denies tobacco, alcohol or IV or illicit drug use. IMAGING: No new imaging available. PHYSICAL EXAMINATION: VITAL SIGNS: Blood pressure is 110/59, pulse 72, respiratory rate 14 and unlabored. The patient is 97% on room air. Height 5 feet 6 inches tall, weight 164 pounds, BMI calculated 26.5. GENERAL: A well-developed, well-nourished, well-hydrated 75-year-old male appearing stated age, pain is rated today 8/10. HEENT: Normocephalic, atraumatic. Pupils equal, round and responsive. His speech is fluent. He is wearing a mask in compliance with COVID-19 regulations. EXTREMITIES: Show no clubbing, no cyanosis and no appreciable edema. MUSCULOSKELETAL: Lower extremity strength symmetrical, 5/5. Muscle bulk and tone equal and symmetrical in lower extremities. Seated straight leg raising negative. Supine straight leg raising negative. Job test is negative. Modified Gaenslen's positive for axial back pain. There is some palpatory tenderness over the paraspinal musculature of lower lumbar spine on the right consistent with the previous surgery. [address] [address] PAIN MANAGEMENT CONSULTATION Name: DEE JOE Room #: REG CLI Foster#: [id number] Admission: 07/18/21 Attend Phys: Yovani Gonzalez DO Discharge: Date of : 47 Report #: [id number] ASSESSMENT: 1. Chronic low back pain. 2. Lumbosacral spondylosis. 3. Facet arthropathy of lumbar spine. 4. Failed lumbar spine surgery. 5. Chronic intractable pain. PLAN: 1. The patient returns today in followup visit to undergo lumbar epidural injection under fluoroscopic guidance. He reports good efficacy with previous epidural injection, but unfortunately symptoms have reoccurred. He returns today to undergo next in the series. He has been advised the risks and benefits of the procedure, states he understood and wished to proceed. 2. No medication changes made at today's visit. The patient will continue current medical therapy as prior prescribed. 3. Plan to see the patient back in followup visit on an as needed basis for the next in the series of lumbar epidural injections. We are hopeful the patient will once again see good and prolonged benefit with the procedure provided today. PROCEDURE NOTE: DESCRIPTION OF PROCEDURE: L3-L4 lumbar epidural steroid injection under fluoroscopic guidance using a right parasagittal approach. After obtaining written consent, the patient was taken back to fluoroscopy suite, placed in prone position with pillow under abdomen to decrease lumbar lordosis. Skin overlying lumbosacral area then prepped and draped in an aseptic fashion. The L3-L4 vertebral levels were identified by AP fluoroscopy. Skin and subcutaneous tissue overlying target site injection anesthetized with 3 mL of 1% lidocaine. A 20-gauge 3-1/2 inch Tuohy needle was advanced under fluoroscopic guidance towards the epidural space using a right parasagittal approach. Epidural space identified using loss of resistance to air technique. After negative aspiration for heme or cerebrospinal fluid, 1 mL of Omnipaque injected. Lumbar epidurogram was confirmed using both AP and lateral fluoroscopy. After negative aspiration for heme or cerebrospinal fluid, 5 mL of a solution containing 2 mL 40 mg per mL, 80 mg total triamcinolone along with 3 mL of lidocaine 1% injected slowly. Needle retracted intermediate flushed with 1 mL of 1% lidocaine and removed. Sterile bandage placed over injection site. No new motor deficits present in lower extremity following procedure. The patient tolerated the procedure well, carefully escorted to recovery room in [facility] [address] [place] [address] PAIN MANAGEMENT CONSULTATION Name: DEE JOE Room #: REG CLI Foster#: [id number] Admission: 07/18/21 Attend Phys: Yovani Gonzalez DO Discharge: Date of : 47 Report #: [id number] stable condition. No apparent complications. After meeting discharge criteria, the patient was discharged home. <ELECTRONICALLY SIGNED> By: Yovani Gonzalez DO 07/24/21 1327 [id number] Yovani Gonzalez DO /nt
== END | disposition home or self-care (01) ==
LOC: PAIN 06:52
PROVIDERS: ATTEND Anesthesiology Pain Medicine
DX: M54.59 Other low back pain (principal); G89.29 Other chronic pain; M47.27 Other spondylosis with radiculopathy, lumbosacral region; M47.26 Other spondylosis with radiculopathy, lumbar region; M96.1 Postlaminectomy syndrome, not elsewhere classified; Z98.890 Other specified postprocedural states; Z79.899 Other long term (current) drug therapy; Z87.891 Personal history of nicotine dependence

== ENCOUNTER → 2021-09-04 | Outpatient (CLI) | payer OTHER ==
[~2021-09-04] VITALS: Ht 167.6 cm; Wt 73.9 kg
[~2021-09-04] MED LIST changes: +ARTHRITIS PAIN100 GM TOP
[2021-09-04 10:40] VITALS: BP 106/59
--- NOTE | 2021-09-04 11:09 | NUR ---
Pain Clinic Assessment: 1. History of Osteoarthritis: BACK History of Rheumatoid Arthritis: DENIES 2. Height: 5 ft. 6 in. 167.6 cm. Weight: 163.0 lb. oz. 73.936 kg. Patient's BMI: 26.3 3. Vital Signs: BP: 106/59 Pulse: 75 Resp: 16 Temp: 02 Sat: 97 ECG Mon: 4. Pain Intensity: 10 5. Fall Risk: Dizziness: N Needs help standing or walking: N Fallen in the last 3 months: N Fall risk comments: 6. Patient on Blood Thinner: None 7. History of Hypertension: Y 8. Opioid Therapy greater than 6 weeks: Y Opiate Contract Signed: 09/19/17 9. Risk Assessment Tool Provided: LOW RISK 0 10. Functional Assessment Tool: 11. Recreational Drug Use: Never Drug Type: Tobacco Use: Former Smoker Tobacco Type: Amount or Packs/day: How Many Years: Alcohol Use: Yes Frequency: Monthly Quant: 1
--- NOTE | 2021-09-05 08:11 | HPC ---
[facility] [address] [address] PAIN MANAGEMENT CONSULTATION Name: DEE JOE Room #: REG GERALD Foster#: [id number] Admission: 09/04/21 Attend Phys: Yovani Gonzalez DO Discharge: Date of : 47 Report #: [id number] THIS REPORT FOR: cc: [place] - No family physician/PCP FAM - No family physician/PCP Yovani Gonzalez DO ~ cc: Destin Thurston MD DATE OF SERVICE: 09/04/2021 REFERRING PHYSICIAN: Destin Thurston MD CHIEF COMPLAINT: Low back pain, right lower extremity pain with paresthesias. HISTORY OF PRESENT ILLNESS: As you know, the patient is a 76-year-old male who was originally referred to our service for chronic axial back pain. He has undergone multiple injections and radiofrequency lesioning of the medial branch nerves to address symptoms related to post-fusion side effects. He returns today in followup visit with a completely new pain generator, appears to be the L5 dermatome radiating from the low back towards the right foot. He is also getting intermittent left lower extremity pain with radiation to the medial foot, which is inconsistent with previous evaluations. The patient describes his pain as sharp, constant electrical and shooting in sensation, exacerbated with driving, walking, mowing the grass. Medication is somewhat helpful. Lying down has been helpful. He is not treated this type of pain as this is completely new for him. He is placing the pain score 10/10, returning today in followup visit to discuss treatment options. ALLERGIES: No known drug allergies. CURRENT MEDICATIONS: Tramadol, hydrocodone, diclofenac gel, omeprazole, citalopram, and lisinopril. SOCIAL HISTORY: The patient denies tobacco use. Denies IV or illicit drug use. He is on disability. He is unaccompanied today. IMAGING: No new imaging available. PHYSICAL EXAMINATION: VITAL SIGNS: Blood pressure 106/59, pulse 75, respiratory rate 16 and unlabored. The patient is 97% on room air. Height 5 feet 6 inches tall, weight 163 pounds, BMI calculated 26.3. GENERAL: Well-developed, well-nourished, well-hydrated, 76-year-old male appearing stated age, pain is rated today 10/10. HEENT: Normocephalic, atraumatic. Pupils are round. He is wearing a mask in compliance with COVID-19 regulations in hospital policies. EXTREMITIES: Show no clubbing, no cyanosis, no edema. [facility] [address] [place] [address] PAIN MANAGEMENT CONSULTATION Name: DEE JOE Room #: REG CLI [facility]#: [id number] Admission: 09/04/21 Attend Phys: Yovani Gonzalez DO Discharge: Date of : 47 Report #: [id number] MUSCULOSKELETAL: Lower extremity strength is equal and symmetrical, 5/5. Seated straight leg raising is negative. Supine straight leg raising is positive, right sided specifically with L5 distribution of symptoms. Fabere's test is negative. Modified Gaenslen's positive for some axial low back pain. There are well-healed surgical scars in the upper lumbar region. ASSESSMENT: 1. Acute onset of lumbar radiculopathy. 2. Lumbosacral spondylosis with radiculopathy. 3. Facet arthropathy of lumbar spine. 4. History of chronic axial back pain with failed lumbar surgery in the upper thoracic area. 5. Chronic intractable pain. PLAN: 1. The patient has returned today in followup visit with new onset of pain, which radiates in the L5 distribution on the right greater than the left, but periodically on the left. The patient has had no problems at the L5-S1 level prior to this issue. As you are aware, the patient's symptoms are related to a postsurgical issues in the upper lumbar area, but has had no symptoms in the lower dermatomal distributions in the past. Given the distribution of symptoms, the patient is experiencing, which is the L5 dermatomes on the right with intermittent left, symptoms are likely related to foraminal stenosis at L5-S1 or central canal stenosis at L4-L5. We had discussed with the patient our physical exam findings today. These appear unrelated to his prior issues. We discussed with the patient the treatment options we have available and he wants to move forward with a lumbar epidural injection. I did advise the patient that authorization would have to be obtained before the patient could undergo this procedure. Given the fact that the distribution of symptoms does not correlate to his previous evaluations, authorization may be difficult to obtain. We will begin that authorization process, contact the patient if his work comp system was going to be covering this injection or he would have to utilize a private insurance. 2. 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 The patient states he needs refills on his hydrocodone, tramadol and diclofenac today. 3. We reviewed the fact that opiate medications are being used to provide analgesia adequate to support activities of daily living, not attempting to achieve a specific pain score on the 0-10 Visual Analog Scale. The current opiate medications are providing sufficient analgesia to allow the patient to participate in activities of daily living. The patient is not exhibiting any aberrant behavior suggestive of drug diversion. The patient is not having any adverse reactions to medications. The patient is not suffering from daytime somnolence or mental acuity changes. The patient is managing opiate-induced constipation with appropriate jnny-fvg-ngzwaeq agents and dietary [facility] [address] [place] [address] PAIN MANAGEMENT CONSULTATION Name: DEE JOE Room #: REG [facility].#: [id number] Admission: 09/04/21 Attend Phys: Yovani Gonzalez DO Discharge: Date of : 47 Report #: [id number] considerations. The patient was counseled on concern for caution with operating a motor vehicle while using opiate medications. A physical exam was performed and the patient's functional status was evaluated. All patients with back pain were advised against the bed rest greater than 4 days and were advised to return to normal activities. Pain score assessment was noted and the treatment plan was reviewed with the patient. All current medications, both prescribed and OTC were reviewed and reconciled on the electronic medical record. Tobacco screening was accomplished and smoking cessation was advised when indicated. BMI was noted and diet/exercise modification was recommended for all patients following outside normal parameters. I reviewed with the patient today their responsibilities to safeguard prescription medications, reviewed their responsibility to utilize medications only as prescribed by the physician. They are to seek and receive pain medications only from 1 physician group ([facility]). They are to use 1 pharmacy and keep the clinic informed if they change pharmacies. Their responsibilities include making followup visits in a timely fashion and to avoid abrupt discontinuation of medication usage. Their responsibilities further include bringing their medications (bottles from the pharmacy with residual pills) to the visit for possible confirmation of pill counts and the patient understands it is their responsibility to submit to random drug screens to ensure both that the medications prescribed are present, and that no other controlled substances are present. All prescriptions provided today were generated electronically. 4. The patient was provided a prescription of hydrocodone 10/325 one tab every 6 hours p.r.n. for pain. Given the patient #120 to release today and 4 weeks from today, 2 months' worth of medication. 5. The patient was provided a refill prescription of tramadol 50 mg dose 1 tab p.o. b.i.d. p.r.n. [id number] pain. Given #60 tablets with 1 refill, 2 months worth of medication. 6. The patient was provided a prescription of diclofenac sodium gel 1% solution applied topically as necessary. He was given 3 tubes and 1 refill, 2 months' worth of medication. 7. We will see the patient back in followup visit to address lumbar radicular symptoms related to the L5 dermatomes bilaterally as quickly as possible. If further evaluation is necessary, we would recommend the patient to undergo MRI of the lumbar spine. We will attempt to treat with injections initially. If these are unsuccessful, then surgical options will be entertained. <ELECTRONICALLY SIGNED> By: Yovani Gonzalez DO 09/05/21 0811 [id number] Yovani Gonzalez DO /nt
== END ==
LOC: PAIN 07:04
PROVIDERS: ATTEND Anesthesiology Pain Medicine
DX: M47.26 Other spondylosis with radiculopathy, lumbar region (principal); M47.27 Other spondylosis with radiculopathy, lumbosacral region; G89.29 Other chronic pain; M79.661 Pain in right lower leg; Z79.899 Other long term (current) drug therapy

== ENCOUNTER → 2021-10-17 | Outpatient (CLI) | payer OTHER ==
[~2021-10-17] VITALS: Ht 167.6 cm; Wt 75.1 kg
--- NOTE | ~2021-10-17 | HPC ---
[facility] [address] [place] [place] [address] PAIN MANAGEMENT CONSULTATION Name: DEE JOE Room #: REG GERALD Foster#: [id number] Admission: 10/17/21 Attend Phys: Yovani Gonzalez DO Discharge: Date of : 49 Report #: [id number] THIS REPORT FOR: cc: [place] - [place] family physician/PCP FAM - No family physician/PCP Yovani Gonzalez DO ~ cc: Destin Thurston MD DATE OF SERVICE: 10/17/2021 REFERRING PHYSICIAN: Destin Thurston MD CHIEF COMPLAINT: Low back pain, right lower extremity pain with paresthesias. HISTORY OF PRESENT ILLNESS: As you know, the patient is a 76-year-old male originally referred to our service for chronic axial back pain. He has undergone multiple injections, radiofrequency lesioning medial branch nerves with improvement in symptoms. Unfortunately, he continues to experience lumbar radicular pain for which he undergoes periodic epidural injections. He returns today in followup visit requesting next in the series of epidural injections. He has received authorization through his work comp physicians to undergo the next in the series requested. He is also asking if we can refill his medications today as he does not wish to return in 3 weeks for medications given the new weather changes that have been occurring in the wintertime. Overall, the patient states he is doing well. He is having no side effects to medication including sleepiness, disorientation, confusion, mental slowing or constipation. He feels that the epidural injections worked well for pain control. Most recent epidural injection according to the patient gave 70% improvement in overall pain. ALLERGIES: No known drug allergies. CURRENT MEDICATIONS: Tramadol, hydrocodone, diclofenac gel, omeprazole, citalopram, lisinopril. SOCIAL HISTORY: The patient denies tobacco. Denies IV or illicit drug use. He is on disability. He is unaccompanied today. IMAGING: No imaging available. PHYSICAL EXAMINATION: VITAL SIGNS: Blood pressure 130/63, pulse 77, respiratory rate 16 and unlabored. The patient 98% on room air. Height 5 feet 6 inches tall, weight 165.6 pounds, BMI calculated 26.7. GENERAL: Well-developed, well-nourished, well-hydrated 76-year-old male appearing his stated age, pain is rated today 9/10. HEENT: Normocephalic, atraumatic. Pupils equal, round and responsive. He is [facility] [address] [place] [address] PAIN MANAGEMENT CONSULTATION Name: DEE JOE Room #: REG CLI [facility]#: [id number] Admission: 10/17/21 Attend Phys: Yovani Gonzalez DO Discharge: Date of : 49 Report #: [id number] wearing a mask in compliance with COVID-19 regulations. EXTREMITIES: Show no clubbing, no cyanosis. MUSCULOSKELETAL: Lower extremity strength remains symmetrical, 5/5. Seated straight leg raising negative. Supine straight leg raising is negative. MAYURI test is negative. Modified Gaenslen's positive for axial low back pain. Well-healed surgical scars over the upper lumbar region consistent with his postsurgical changes. Deep tendon reflexes equal and symmetrical in lower extremities. ASSESSMENT: 1. Lumbar radiculopathy. 2. Lumbosacral spondylosis with radiculopathy. 3. Facet arthropathy of lumbar spine. 4. Failed lumbar spine surgery. 5. Chronic intractable pain. PLAN: 1. The patient returns today in followup visit requesting to undergo lumbar epidural injection under fluoroscopic guidance. He has received authorization through his work comp physicians and his work comp coordinator to undergo the procedure today. He has been advised risks and benefits of the procedure, states understood and wished to proceed. 2. The patient was provided refill prescription of his diclofenac sodium 50 mg dose 1 tab p.o. b.i.d. I have given the patient #60 with 1 refill sent to local pharmacy. 3. The patient was provided a refill prescription of his hydrocodone 10/325 one tab p.o. q. 6 hours p.r.n. pain. I have given the patient to release at the end of this week and again in October, so 2 months worth of medication. He was sent 120 tablets with both prescriptions. They were sent via e-scribe. 4. The patient was provided a refill prescription of tramadol 50 mg dose 1 tab p.o. b.i.d., #60 with 1 refill, 2 months' worth of medication. 5. We will plan to see the patient back in followup visit in 2 months for medication management, earlier if he wishes to look towards next in the series of lumbar epidural injections. We are hopeful the patient will see good and prolonged benefit with the injection provided today. DESCRIPTION OF PROCEDURE: L3-4 interlaminar epidural steroid injection under fluoroscopic guidance. After obtaining written consent, the patient was taken back to fluoroscopy suite, placed in prone position pillow under abdomen to decrease lumbar lordosis. Skin overlying lumbosacral area prepped and draped in an aseptic fashion. The L3-4 vertebral body levels were identified and marked. The area overlying the injection was then prepped and draped in an aseptic fashion using chlorhexidine. A 27-gauge 1-1/4-inch needle was then used to anesthetize skin and subcutaneous tissue with 2 mL of 1% lidocaine. [facility] [address] [place] [address] PAIN MANAGEMENT CONSULTATION Name: DEE JOE Room #: REG GERALD Hutchison#: [id number] Admission: 10/17/21 Attend Phys: Yovani Gonzalez DO Discharge: Date of : 49 Report #: [id number] A 20-gauge 3-1/2-inch Tuohy needle was advanced under fluoroscopic guidance towards the epidural space using a parasagittal approach. The epidural space was identified using loss of resistance to air technique. After negative aspiration for heme or cerebrospinal fluid, 1 mL of Omnipaque was injected. Lumbar epidurogram was confirmed using both AP and lateral fluoroscopy. After negative aspiration for heme or cerebrospinal fluid, 5 mL of a solution containing 2 mL 40 mg per mL 80 mg total triamcinolone along with 3 mL of lidocaine 1% was injected slowly. Needle retracted residential flushed with 1 mL of 1% lidocaine and removed. Sterile bandage was placed over injection site. No new motor deficits present in the lower extremities following procedure. The patient tolerated the procedure well, carefully escorted to recovery room in stable condition. No apparent complications. After meeting discharge criteria, the patient discharged home. By: [id number] Yovani Gonzalez DO /nt
[2021-10-17 10:22] VITALS: BP 130/63
--- NOTE | 2021-10-17 10:40 | NUR ---
Pain Clinic Assessment: 1. History of Osteoarthritis: BACK History of Rheumatoid Arthritis: DENIES 2. Height: 5 ft. 6 in. 167.6 cm. Weight: 165.6 lb. oz. 75.116 kg. Patient's BMI: 26.7 3. Vital Signs: BP: 130/63 Pulse: 77 Resp: 16 Temp: 02 Sat: 98 ECG Mon: 4. Pain Intensity: 9 5. Fall Risk: Dizziness: N Needs help standing or walking: N Fallen in the last 3 months: N Fall risk comments: 6. Patient on Blood Thinner: None 7. History of Hypertension: Y 8. Opioid Therapy greater than 6 weeks: Y Opiate Contract Signed: 09/19/17 9. Risk Assessment Tool Provided: LOW RISK 0 10. Functional Assessment Tool: 11. Recreational Drug Use: Never Drug Type: Tobacco Use: Former Smoker Tobacco Type: Amount or Packs/day: How Many Years: Alcohol Use: Yes Frequency: Quant:
== END | disposition home or self-care (01) ==
LOC: PAIN 06:57
PROVIDERS: ATTEND Anesthesiology Pain Medicine
DX: M47.27 Other spondylosis with radiculopathy, lumbosacral region (principal); M47.26 Other spondylosis with radiculopathy, lumbar region; M96.1 Postlaminectomy syndrome, not elsewhere classified; G89.29 Other chronic pain; Z98.890 Other specified postprocedural states; Z79.899 Other long term (current) drug therapy; Z87.891 Personal history of nicotine dependence